=== PATIENT | female | born 1955 | race Caucasian/White ===

== ENCOUNTER 2019-09-09 15:21 | Inpatient (IN) | payer MEDICARE, OTHER ==
[~2019-09-09] VITALS: Ht 172.7 cm; Wt 89.8 kg
[~2019-09-09 15:21] MED LIST: DILAUDID4 MG PO; TYLENOL # 31 EA PO; Z.0.LORTAB 10-5001 E; Z.0.SOMA350 MG; Z.0.VALIUM5 MG
[2019-09-09 17:32] LABS: INR 1.3
[2019-09-09 17:33] LABS: PARTIAL THROMBOPLASTIN TIME 23.8 seconds (23.8-35.5)
--- NOTE | 2019-09-09 17:33 | Diagnostic Imaging Report ---
Examination: CT BRAIN WO WITHOUT CONTRAST History:Altered mental status. Comparison studies:The images of prior head CT dated 2012 are not available for comparison. Technique: Axial images were obtained from the skull base to the vertex. Coronal and sagittal images reconstructed from the axial data. Dose modulation, iterative reconstruction, and/or weight based adjustment of the mA/kV was utilized to reduce the radiation dose to as low as reasonably achievable. Intravenous contrast: None Findings: Scalp: No abnormalities. Bones: No fractures, blastic or lytic lesions. Brain sulci: Appropriate for age. Ventricles: Normal in size and configuration. No hydrocephalus. Extra-axial space: No abnormalities. Parenchyma: No masses, hemorrhage, or acute or chronic cortical based vascular insults.. Sellar/suprasellar region: No abnormalities. Craniocervical junction: Patent foramen magnum. No Chiari one malformation. Impression: No acute intracranial abnormalities. Signed by: Dr. Jagruti Be M.D. on 09/09/2019 5:30 PM
[2019-09-09 17:42] LABS: ALANINE AMINOTRANSFERASE 19 IU/L (0-55); ALBUMIN 3.1 g/dL (3.5-5.0); ALBUMIN/GLOBULIN RATIO 1.4 (0.8-2.0); ALKALINE PHOSPHATASE 99 IU/L (40-150); BLOOD UREA NITROGEN 6 mg/dL (7-26); BUN/CREATININE RATIO 10 (6-25); CARBON DIOXIDE 31 mmol/L (22-29); CHLORIDE 99 mmol/L (98-107); CREATINE KINASE 59 IU/L (29-168); CREATININE, SERUM 0.61 mg/dL (0.57-1.11); EST GLOMERULAR FILTRATION RATE > 60 ML/MIN (60-); GLUCOSE 128 mg/dL (74-118); SODIUM 139 mmol/L (136-145)
--- NOTE | 2019-09-09 17:42 | Diagnostic Imaging Report ---
EXAMINATION: CHEST SINGLE (PORTABLE) INDICATION: Altered mental status. COMPARISON: None FINDINGS: TUBES and LINES: None. LUNGS: There are hazy opacification of the bilateral lung bases. PLEURA: No pleural effusion or pneumothorax. HEART AND MEDIASTINUM: The cardiomediastinal silhouette is unremarkable. BONES AND SOFT TISSUES: No acute osseous lesion. Soft tissues are unremarkable. UPPER ABDOMEN: No free air under the diaphragm. IMPRESSION: Hazy opacification of bilateral lung bases which may represent atelectasis and/or multifocal pneumonia in the proper clinical setting. Signed by: Sydney Frankel MD on 09/09/2019 5:39 PM
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
[2019-09-09 19:10] LABS: BASOPHILS % 0.3 % (0.0-1.0); EOSINOPHILS % 0.3 % (0.0-6.0); HEMATOCRIT 23.4 % (34.2-44.1); LYMPHOCYTES # (AUTO) 1.2 (1.0-3.2); LYMPHOCYTES % 13.5 % (18.0-39.1); MEAN CORPUSCULAR HEMOGLOBIN 27.4 pg (28-32); MEAN CORPUSCULAR HGB CONC 29.1 g/dL (31-35); MEAN CORPUSCULAR VOLUME 94.4 fL (81-99); MONOCYTES # (AUTO) 0.9 (0.2-0.8); MONOCYTES % 10.4 % (4.4-11.3); NEUTROPHILS # (AUTO) 6.5 (2.1-6.9); PLATELET COUNT 128 x10e3/uL (140-360); RED BLOOD COUNT 2.48 x10e6/uL (3.6-5.1); RED CELL DISTRIBUTION WIDTH 18.7 % (11.7-14.4)
[2019-09-09 19:16] LABS: HEMOGLOBIN 6.8 g/dL (12.0-16.0)
[2019-09-09 19:17] LABS: BILIRUBIN,URINE NEGATIVE (NEGATIVE); CLARITY,URINE SL CLOUDY (CLEAR); COLOR,URINE YELLOW (YELLOW); KETONES,URINE NEGATIVE (NEGATIVE); LEUKOCYTE ESTERASE ,URINE NEGATIVE (NEGATIVE); NITRITE,URINE NEGATIVE (NEGATIVE); PROTEIN,URINE DIPSTICK NEGATIVE (NEGATIVE); URINE UROBILINOGEN 0.2 mg/dL (0.2 - 1)
[2019-09-09 19:29] LABS: BACTERIA,URINE RARE /HPF; EPITHELIAL CELLS,URINE RARE /LPF
[2019-09-09] MEDS ORDERED: SODIUM CHLORIDE 0.9% 250ML 250 ML IV ONE (19:30)
[2019-09-10] MEDS ORDERED: SODIUM CHLORIDE 0.9% 250ML 250 ML ONE ×2 (00:20→20:53)
--- NOTE | 2019-09-10 03:16 | NUR ---
PATIENT GOES INTO SINUS TACHYCARDIA FOR 7 SECONDS THEN COMES BACK DOWN, DR MORAN WITH THIS NURSE STUDYING BORDER INSPECTOR, PATIENT IS ASYMPTOMATIC
--- NOTE | 2019-09-10 03:37 | NUR ---
EKG SHOWED TO DR MORAN FOR INTERPRETATION
[2019-09-10 06:23] LABS: BASOPHILS % 0.8 % (0.0-1.0); EOSINOPHILS # (AUTO) 0.1 (0.0-0.4); EOSINOPHILS % 1.5 % (0.0-6.0); HEMOGLOBIN 8.5 g/dL (12.0-16.0); MEAN CORPUSCULAR HEMOGLOBIN 29.3 pg (28-32); MEAN CORPUSCULAR HGB CONC 31.5 g/dL (31-35); MEAN CORPUSCULAR VOLUME 93.1 fL (81-99); MONOCYTES # (AUTO) 0.7 (0.2-0.8); MONOCYTES % 13.9 % (4.4-11.3); NEUTROPHILS % 63.6 % (38.7-80.0); PLATELET COUNT 88 x10e3/uL (140-360); RED CELL DISTRIBUTION WIDTH 19.2 % (11.7-14.4)
[2019-09-10 06:58] LABS: ALANINE AMINOTRANSFERASE 17 IU/L (0-55); ALBUMIN/GLOBULIN RATIO 1.3 (0.8-2.0); ALKALINE PHOSPHATASE 77 IU/L (40-150); ANION GAP 8.8 mmol/L (8-16); BLOOD UREA NITROGEN < 5 mg/dL (7-26); CALCIUM 8.1 mg/dL (8.4-10.2); CARBON DIOXIDE 34 mmol/L (22-29); CHLORIDE 100 mmol/L (98-107); CREATININE, SERUM 0.53 mg/dL (0.57-1.11); EST GLOMERULAR FILTRATION RATE > 60 ML/MIN (60-); GLUCOSE 107 mg/dL (74-118); SODIUM 140 mmol/L (136-145)
[2019-09-10 07:00] LABS: BUN/CREATININE RATIO 9 (6-25)
[2019-09-10 07:02] LABS: POTASSIUM 2.8 mmol/L (3.5-5.1)
[2019-09-10] MEDS ORDERED: POTASSIUM CHLORIDE 20 MEQ TAB CR PO STA (07:13)
--- NOTE | 2019-09-10 07:15 | NUR ---
REPORT GIVEN TO LUNA GAMBOA
[2019-09-10 08:05] LABS: PLATELET ESTIMATE MODERATELY DECREASED
[2019-09-10 08:06] LABS: PLATELET MORPHOLOGY COMMENT NORMAL
[2019-09-10] MEDS: POTASSIUM CHLORIDE 10MEQ/100ML 100 ML IV SCH ×7 (08:31→21:15)
[2019-09-10] MEDS: FUROSEMIDE INJ 10 MG/ML 4 ML VIAL IV SCH ×2 (10:48→11:35)
[2019-09-10] MEDS: PANTOPRAZOLE 40 MG 10ML VIAL IV SCH (10:48)
--- NOTE | 2019-09-10 10:48 | History and Physical ---
CHIEF COMPLAINT: Palpitation, increasing shortness of breath, abdominal distention with ascites and bilateral legs swelling. HISTORY OF PRESENT ILLNESS: The patient is a 64-year-old female, who has history of hepatitis C. Recently, she was hospitalized at [facility], where she had a syncopal episode, has some injury to the left upper extremity, but more importantly, found that the patient ammonia level was elevated associated with liver cirrhosis. The patient was hospitalized and subsequently was discharged home approximately a week ago. She came to see her family physician and found to have increasing lower extremity swelling along with abdominal distention as well. She was given Aldactone 25 mg daily. The patient did not improve. In fact, she was worsened and associated with increasing heart rate, palpitations, and near syncopal episode, for which the patient subsequently came to the hospital for further evaluation. Here, the patient is on atrial fibrillation. Rate is not yet controlled. She had bilateral 3+ pitting edema. She also has increasing abdominal distention as well associated with ascites. The patient is otherwise, however, stable. She had a right IJ line. PAST SURGICAL HISTORY: Cholecystectomy, left arm surgery, multiple back surgeries. PAST MEDICAL HISTORY: Hepatitis C with liver cirrhosis. Osteoarthritis. Recently a fall with left arm injury. SOCIAL HISTORY: The patient does not smoke or use alcohol. No regular drug use. Hepatitis C was from previous blood transfusion years ago. ALLERGIES: GABAPENTIN. HOME MEDICATIONS: She is on diazepam and Dilaudid orally. PHYSICAL EXAMINATION: VITAL SIGNS: Temperature is 98, blood pressure 125/69, pulse rate is 115 atrial fibrillation. Respirations 18. GENERAL: The patient is comfortable. She is not in distress. HEENT: Normocephalic and atraumatic. Anicteric. NECK: Supple grossly. PULMONARY: Diminished breath sounds. CARDIOVASCULAR: S1, S2. Rapid rate with atrial fibrillation. ABDOMEN: Distended with abdominal ascites. EXTREMITIES: 3+ edema. NEUROLOGIC: No focal deficit. LABORATORY DATA: WBC is 8.7, hemoglobin 6.8, hematocrit 23.4, platelets 128. Chemistry; sodium is 139, potassium 3.0, chloride 99, bicarb 31, BUN is 6, creatinine 0.6, glucose 128. Ammonia level was 46. Urinalysis unremarkable. SEROLOGIES: Coronavirus PCR is still pending. IMAGING TESTS: Chest x-ray show hazy opacity of bilateral lung bases, which may represent atelectasis and/or multifocal pneumonia. IMPRESSION: 1. Increasing shortness of breath associated with rapid heart rate, atrial fibrillation. 2. Abdominal distention with abdominal ascites and bilateral lower extremity swelling consistent with possible early congestive heart failure superimposed on liver cirrhosis with abdominal ascites. 3. Gross significant symptomatic anemia with hemoglobin and hematocrit of 6.8 and 23.4. 4. Liver cirrhosis associated with hepatitis C. 5. Multiple chronic baseline problems. PLAN: 1. Consult with Dr. Vyas. 2. Consult Dr. Xie, Gastroenterology. 3. Blood transfusion. The patient did receive her hemoglobin and hematocrit went up to 8.5 and 27. 4. Possible paracentesis. 5. Diuresis. 6. CT of the chest and abdomen to better document the patient's status. 7. COVID-19 PUI, pending results. The patient will be admitted for further evaluation and treatment. We will replace electrolytes. Check lab work. We will continue to monitor this patient closely. We will follow up with Dr. Mendez to see what his recommendation for the atrial fibrillation. MD YARIEL Frederick/CARLOSL /[id number]
[2019-09-10] MEDS: METOPROLOL TARTRATE 25 MG TAB PO SCH ×2 (10:49→17:15)
--- NOTE | 2019-09-10 12:51 | Diagnostic Imaging Report ---
CT of the chest, abdomen, and pelvis, with contrast. History: Shortness of breath, abnormal chest x-ray. Comparison: Chest radiograph from 09/09/2019. Technique: Multidetector CT scanning of the abdomen and pelvis was performed from the level of the lung bases to the inferior pubic rami after intravenous administration of contrast. Coronal and sagittal multiplanar reformations were obtained. RADIATION DOSE: Total DLP: 897.86 mGy*cm Dose modulation, iterative reconstruction, and/or weight based adjustment of the mA/kV was utilized to reduce the radiation dose to as low as reasonably achievable. FINDINGS: The thyroid and remaining visualized structures within the base of the neck demonstrate no significant abnormalities. The thoracic aorta is normal course and caliber. The heart is not enlarged. There is no abnormal pericardial fluid present. There is no abnormal activity, mediastinal, or hilar lymph node enlargement. The trachea and proximal airways are patent. There is a trace right pleural effusion present with associated compressive atelectasis of the right lung base. A calcified granuloma is noted within the right lower lobe. Examination of the lungs otherwise demonstrates no evidence for consolidation, pneumothorax, mass, or suspicious nodule. There is a small volume of abdominopelvic ascites, most prominent within the perihepatic/perisplenic regions. The liver is decreased in size and demonstrates a nodular contour suggestive of cirrhosis. No focal hepatic abnormality is identified on this single phase examination. The gallbladder is surgically absent. There is no intrahepatic biliary ductal dilatation. There is minimal prominence of the common bile duct measuring up to 8 mm in caliber likely reflecting post cholecystectomy status. The spleen is enlarged. The pancreas and bilateral adrenal glands are unremarkable. The kidneys are normal in size and enhance symmetrically. There is no evidence for nephrolithiasis or hydronephrosis. No ureteral stone or dilatation is appreciated. The urinary bladder demonstrates no significant abnormalities. The uterus is surgically absent. No abnormal adnexal masses are identified. The abdominal aorta is normal in caliber. The IVC is unremarkable. The main portal vein is prominent measuring up to 2.4 cm in maximal caliber. Multiple collateral vessels are identified within the upper abdomen. Prominent paraesophageal varices noted. The portal venous system, splenic vein, and SMV are patent. There is mild wall thickening of the stomach and loops of small and large bowel likely reflecting portal hypertensive gastropathy/enteropathy. The visualized loops of small and large bowel otherwise demonstrate no evidence of obstruction or inflammation. Scattered diverticula are noted within the sigmoid colon without evidence for acute diverticulitis. There is no intraperitoneal free air. No abnormally enlarged lymph nodes are identified within the abdomen or pelvis. Multiple surgical clips are noted along the anterior abdominal wall likely reflecting prior hernia repair. Multiple remote/healed left posterior lateral rib fractures are noted. There is dextroscoliosis of the thoracolumbar spine with multilevel degenerative changes. There is no evidence for acute fracture or destructive process. Body wall edema noted.. IMPRESSION: 1. CT findings suggestive of cirrhosis and sequela of portal hypertension including prominent portal vein, paraesophageal varices, splenomegaly, and small volume of ascites. 2. Mild wall thickening noted of the stomach and loops of bowel which is favored to be secondary to portal hypertensive gastropathy/enteropathy. No evidence for bowel obstruction. 3. Trace right pleural effusion. Signed by: Dr. Robe Wolf MD on 09/10/2019 12:48 PM
[2019-09-10] MEDS ORDERED: IOPAMIDOL 370 MG/ML 200 ML INFUS..BTL INJ ONE (12:52)
[2019-09-10] MEDS ORDERED: SODIUM CHLORIDE 0.9% 50ML 50 ML ONE (12:52)
[2019-09-10 12:54] LABS: % IRON SATURATION 30 % (15-50); IRON 77 ug/dL (50-170); TOTAL IRON BINDING CAPACITY 256 ug/dL (261-478); TRANSFERRIN 183 mg/dL (180-382)
[2019-09-10] MEDS ORDERED: POTASSIUM CHLORIDE 10MEQ/100ML 200 ML ONE (16:54)
[2019-09-10 20:08] LABS: CREATINE KINASE MB 1.3 ng/mL (0-5.0)
--- NOTE | 2019-09-10 20:30 | NUR ---
Patient received from ER via stretcher accompanied by daughter. AAO x 4. Patient had no complaints of pain. Respirations even and non-labored. Admission history obtained. Initial physical assessment performed. Patient oriented to room, call light and plan of care. Safety measures in place. Patient / daughter instructed to call for assistance when needed. Call light within reach.
[2019-09-10 20:38] VITALS: BP 112/64
--- NOTE | 2019-09-10 21:20 | NUR ---
Dr. Xie paged regarding "Routine Consult". Spoke to [place]. Awaiting call back.
--- NOTE | 2019-09-10 21:45 | NUR ---
Patient informed of surgical procedure---Therapeutic Paracentesis and NPO status after midnight. Patient verbalized understanding. Disclosure and Consent form signed.
[2019-09-10 22:00] VITALS: BP 112/64
[2019-09-10] MEDS ORDERED: MELOXICAM7.5 MG PO (23:09)
[2019-09-10] MEDS ORDERED: SPIRONOLACTONE25 MG PO (23:09)
[2019-09-10] MEDS ORDERED: BACLOFEN10 MG PO (23:09)
[2019-09-10] MEDS ORDERED: MORPHINE SULFAT15 M1 PO (23:09)
[2019-09-11] VITALS (8 sets, daily range): BP systolic 100–123; BP diastolic 51–83
--- NOTE | 2019-09-11 00:47 | Consultation ---
DATE OF CONSULTATION: 09/10/2019 Cardiology Consultation CONSULTING PHYSICIAN: Dimas Vyas, Interventional Cardiology. REASON FOR CONSULTATION: Arrhythmia. HISTORY OF PRESENT ILLNESS: Ms. Amaya is a 64-year-old woman with history of hepatitis C viral infection and end-stage liver disease, prior issues with anemia and GI bleeding, who presents with worsening anemia, suspected GI bleed. She has been gaining significant volume overload following recent discharge from [facility]. She was found to have hypokalemia and reportedly episodes of paroxysmal atrial fibrillation were observed on telemetry by ER team. Available EKG strips and current telemetry reveals sinus rhythm, however, has not been able to confirm this. The patient currently denies any chest discomfort, has stable shortness of breath. Denies lightheadedness or syncope. Has occasional palpitations. REVIEW OF SYSTEMS: Twelve-system review negative except for as noted above. ALLERGIES: TO GABAPENTIN. PAST MEDICAL HISTORY: Remarkable for HCV, anemia, and end-stage liver disease. SOCIAL HISTORY: Denies smoking, alcohol, or drugs. FAMILY HISTORY: Noncontributory. PHYSICAL EXAMINATION: VITAL SIGNS: Heart rate 94, sinus rhythm, respiratory rate 14, O2 saturation 97%. GENERAL: No acute distress. Alert. Mucosa dry and pale. NECK: JVD distended. No carotid bruits. CHEST: With decreased breath sounds in bilateral bases. CARDIOVASCULAR: Regular rate and rhythm. Normal S1, S2. Systolic ejection murmur. No S3. No S4. ABDOMEN: Soft. Bowel sounds positive. EXTREMITIES: 2+ edema to both lower extremities. MEDICATIONS: Reviewed. Potassium chloride repletion ongoing, metoprolol tartrate 25 mg b.i.d., Protonix 40 mg daily, furosemide 40 mg IV b.i.d., diuretics on hold during repletion of potassium. LABORATORY DATA: Studies reviewed. Sodium 140, potassium 2.8, chloride 100, bicarbonate 34, BUN less than 5 and creatinine 0.53, glucose 107. White blood cells 4.7, hemoglobin 8.5, platelets 88. INR 1.3, PT 17, PTT 23. AST 24, ALT 17, alkaline phosphatase 77. ASSESSMENT AND PLAN: A 64-year-old woman presents with suspected gastrointestinal bleed and anemia and volume overload in the setting of HCV, end-stage liver disease and reported paroxysmal atrial fibrillation episodes in the setting of electrolyte derangements. RECOMMEND: 1. Replete electrolytes. 2. Monitor H and H and consider GI evaluation. 3. Rate control strategy is advised at this point. Currently not a candidate for anticoagulation until anemia and possible active bleeding is further evaluated. Obtain echocardiogram. Keep on telemetry. Thank you for the opportunity to participate in the care of this patient. We will follow with you. MD ALVARO Noyola/VADIM /[id number] MTDD
[2019-09-11 05:14] LABS: BASOPHILS % 0.6 % (0.0-1.0); EOSINOPHILS # (AUTO) 0.1 (0.0-0.4); EOSINOPHILS % 2.5 % (0.0-6.0); HEMATOCRIT 29.7 % (34.2-44.1); HEMOGLOBIN 8.7 g/dL (12.0-16.0); LYMPHOCYTES # (AUTO) 1.4 (1.0-3.2); LYMPHOCYTES % 26.7 % (18.0-39.1); MEAN CORPUSCULAR HEMOGLOBIN 26.9 pg (28-32); MEAN CORPUSCULAR HGB CONC 29.3 g/dL (31-35); MONOCYTES # (AUTO) 0.7 (0.2-0.8); MONOCYTES % 12.5 % (4.4-11.3); NEUTROPHILS % 57.5 % (38.7-80.0); PLATELET COUNT 95 x10e3/uL (140-360); RED BLOOD COUNT 3.23 x10e6/uL (3.6-5.1); RED CELL DISTRIBUTION WIDTH 19.1 % (11.7-14.4)
[2019-09-11 05:36] LABS: ALANINE AMINOTRANSFERASE 18 IU/L (0-55); ALBUMIN 2.7 g/dL (3.5-5.0); ALBUMIN/GLOBULIN RATIO 1.2 (0.8-2.0); ALKALINE PHOSPHATASE 96 IU/L (40-150); ANION GAP 8.6 mmol/L (8-16); BLOOD UREA NITROGEN < 5 mg/dL (7-26); BUN/CREATININE RATIO 9 (6-25); CALCIUM 8.2 mg/dL (8.4-10.2); CARBON DIOXIDE 36 mmol/L (22-29); CHLORIDE 100 mmol/L (98-107); CREATININE, SERUM 0.57 mg/dL (0.57-1.11); EST GLOMERULAR FILTRATION RATE > 60 ML/MIN (60-); GLUCOSE 118 mg/dL (74-118); POTASSIUM 3.6 mmol/L (3.5-5.1); SODIUM 141 mmol/L (136-145)
[2019-09-11 05:57] LABS: CREATINE KINASE MB 1.3 ng/mL (0-5.0)
[2019-09-11 06:29] LABS: MAGNESIUM 1.8 MG/DL (1.3-2.1); PHOSPHORUS 2.6 MG/DL (2.3-4.7)
--- NOTE | 2019-09-11 06:44 | NUR ---
RECEIVED BEDSIDE SHIFT REPORT FROM OFF GOING NURSE. PATIENT IS RESTING IN BED. NO ACUTE DISTRESS NOTED. CALL LIGHT WITHIN REACH. BED IN THE LOWEST POSITION.
[2019-09-11] MEDS: PANTOPRAZOLE 40 MG 10ML VIAL IV SCH (08:39)
[2019-09-11] MEDS: FUROSEMIDE INJ 10 MG/ML 4 ML VIAL IV SCH ×2 (08:39→11:30)
[2019-09-11] MEDS: METOPROLOL TARTRATE 25 MG TAB PO SCH ×2 (08:39→16:09)
--- NOTE | 2019-09-11 13:00 | NUR ---
PATIENT OFF UNIT FOR PROCEDURE.
--- NOTE | 2019-09-11 13:52 | NUR ---
PATIENT BACK TO UNIT FROM PARACENTESIS. SHE IS IN STABLE CONDITION. DAUGHTER AT BEDSIDE.
--- NOTE | 2019-09-11 14:03 | Diagnostic Imaging Report ---
Procedure: Ultrasound-guided paracentesis non acoustic operator: Robe Wolf MD Pre-operative diagnosis: Ascites Post-operative diagnosis: Ascites Conscious Sedation: None. The patient's heart rate and pulse oximetry were continuously monitored by the IR nurse. Additional Medications: Lidocaine 1% for local anesthesia Estimated blood loss: Less than 1 cc. Specimen: 700 cc of clear yellow fluid Implants: None TECHNIQUE/FINDINGS: Informed consent was obtained from the patient and documented in the medical record. The patient was placed in the supine position. Initial ultrasound demonstrated small volume of ascites. The left lower abdomen was prepped and draped in standard sterile fashion. 1% lidocaine was infiltrated into the skin and subcutaneous tissues for local anesthesia. Then under continuous sonographic guidance, a 5 Fr catheter was advanced into the peritoneal space. The catheter was connected to vacuum bottle with subsequent evacuation of 700 cc of serous fluid. The catheter was removed and sterile dressing was applied. Sample was sent to the lab. The patient tolerated the procedure well. IMPRESSION: Successful ultrasound-guided paracentesis. Signed by: Dr. Robe Wolf MD on 09/11/2019 2:00 PM
[2019-09-11 17:29] LABS: BODY FLUID APPEARANCE SL.CLOUDY; BODY FLUID COLOR YELLOW
[2019-09-11 17:33] LABS: RBC,BODY FLUID 64 cells/uL; WBC,BODY FLUID 313 cells/uL
[2019-09-11 17:45] LABS: LYMPHOCYTES,BODY FLUID 37 %; MONO/MACROPHG,BODY FLUID 62 %; NEUTROPHILS,BODY FLUID 1 %
--- NOTE | 2019-09-11 19:01 | NUR ---
BEDSIDE SHIFT REPORT GIVEN TO ONCOMING NURSE. PATIENT IS IN STABLE CONDITION, SITTING UP IN CHAIR. DAUGHTER AT BEDSIDE. CALL LIGHT WITHIN REACH. BED IN THE LOWEST POSITION.
--- NOTE | 2019-09-12 00:34 | Progress Note ---
DATE: 09/11/2019 Cardiology Progress Note SUBJECTIVE: No chest pain or shortness of breath. Confusion improved. OBJECTIVE: VITAL SIGNS: Temperature 99.2, heart rate 96, blood pressure 100/51, respiratory rate 20, O2 saturation O2Sat 96% GENERAL: No acute distress. Alert. NECK: No JVD. CHEST: Clear to auscultation. CARDIOVASCULAR: Regular rate and rhythm. Normal S1 and S2. No S3 or S4. ABDOMEN: Soft. Bowel sounds positive. EXTREMITIES: Trace edema. TELEMETRY: Sinus rhythm. CARDIOVASCULAR MEDICATIONS: Reviewed. Metoprolol and furosemide. STUDIES: Reviewed. Creatinine 0.5, potassium 3.6, improved. Hemoglobin 8.7, status post PRBC transfusion. Platelets 95. ASSESSMENT AND PLAN: Positive fecal occult blood test/gastrointestinal bleed and anemia in the setting of end-stage liver disease, hepatitis C virus infection, hypokalemia, and paroxysmal atrial fibrillation in the setting of the above. RECOMMEND: 1. Continue current beta-blockers. 2. Currently not a candidate for anticoagulation. GI evaluation underway. MD ALVARO Noyola/MODL /[id number] MTDD
[2019-09-12 00:54] VITALS: BP 104/57
[2019-09-12 05:02] VITALS: BP 115/63
--- NOTE | 2019-09-12 07:00 | NUR ---
Patient resting comfortably. Walking rounds done. Shift report given to oncoming nurse regarding patient's status.
[2019-09-12 08:03] VITALS: BP 115/63
[2019-09-12 08:04] VITALS: BP 119/70
[2019-09-12] MEDS: PANTOPRAZOLE 40 MG 10ML VIAL IV SCH (09:30)
[2019-09-12] MEDS: FUROSEMIDE INJ 10 MG/ML 4 ML VIAL IV SCH ×2 (09:30→12:50)
[2019-09-12] MEDS: METOPROLOL TARTRATE 25 MG TAB PO SCH (09:31)
--- NOTE | 2019-09-12 15:20 | NUR ---
Discharge instructions given to the patient and her daughter, they verbalized understanding. IV to the right wrist was removed with tip intact.
--- NOTE | 2019-09-12 17:47 | Discharge Summary ---
KEEPER HEAD: 1. Dr. Mendez. 2. Dr. Xie. FINAL DIAGNOSES: 1. Paroxysmal atrial fibrillation with rapid ventricular rate response, now in normal sinus rhythm with beta blockers, metoprolol treatment. 2. Baseline liver cirrhosis associated with esophageal varices. 3. Abdominal ascites status post paracentesis, 700 mL obtained. 4. Possible early spontaneous bacterial peritonitis, given the yellow cloudy urine. 5. Chronic blood loss anemia from chronic upper GI bleed, most likely. SUMMARY: This is a 64 years old female, recently discharged from [facility], was diagnosed with liver cirrhosis and esophageal varices. The patient had upper and lower endoscopy at that time. She apparently came back in to the hospital, but at this time at [facility] for increasing heart rate. The patient was in an atrial fibrillation and once beta radha was given the patient had sinus rhythm now. She is otherwise stable. Because of her increasing swelling of the abdomen and lower extremity, she was placed on IV furosemide. She has also received paracentesis yesterday by Interventional Radiology and 700 mL of fluid obtained yellowish cloudy but nonbloody fluid. Her fecal occult blood is positive. Recent blood work includes sodium 141, potassium 3.6, chloride 100, bicarb 26, BUN 5, creatinine 0.5, and glucose is 118. WBC is 5.2, hemoglobin increased from 6.8 to 8.7 after 2 units blood transfusion. The patient is otherwise stable. She is doing much better. She is feeling much better. The patient is to go home today. Adjustment of her medication has been made. The patient will be discharged home with the following medications: 1. Resume home medication. 2. Increase Aldactone to 25 mg twice a day. 3. Lasix 40 mg twice a day. 4. Potassium 20 mEq daily. 5. Cipro 250 mg twice a day for 7 days. 6. Metoprolol tartrate 25 mg twice a day. Discussed with the patient regarding followup with her family physician and Cardiology as well Gastroenterology as well. No further workup at this time. If the patient is worsening, she can always come back. Otherwise, the patient is stable. Discharged home and follow up as an outpatient with the primary care physician, Dr. Mandi Brown and also specialist previous GI or Dr. Henrique Xie and previous fiber drier operator or Dr. Jona Mendez. The patient is stable, discharged home today. MD YARIEL Frederick/VADIM /[id number]
--- NOTE | 2019-09-13 00:47 | Progress Note ---
DATE: 09/12/2019 Cardiology Progress Note SUBJECTIVE: No complaints. OBJECTIVE: VITAL SIGNS: Temperature 98.9, heart rate 92, blood pressure 119/70, respiratory rate 20, O2 saturation 92%. GENERAL: In no acute distress, alert. NECK: No JVD. CHEST: Clear to auscultation. CARDIOVASCULAR: Regular rate and rhythm. Normal S1 and S2. No S3 or S4. ABDOMEN: Soft. Bowel sounds positive. EXTREMITIES: 1+ edema, overall better compared to admission. CARDIOVASCULAR MEDICATIONS: Reviewed. Metoprolol tartrate 25 mg b.i.d., Protonix 40 mg daily, furosemide 40 mg b.i.d. LABORATORY DATA: Studies reviewed. Potassium improved at 3.6, sodium 141, chloride 100, bicarbonate 36, BUN less than 5, creatinine 0.5, glucose 118. White blood cells 5.2, hemoglobin 8.7, and platelets 95. INR 1.3. AST 23, ALT 18, and alkaline phosphatase 96. ASSESSMENT AND PLAN: A 64-year-old woman with hepatitis C virus, end-stage liver disease, volume overload, hypokalemia, status post paroxysmal supraventricular tachycardia, reportedly atrial fibrillation; however, confirmatory strips unavailable. Noted to have anemia and positive fecal occult blood test per recent evaluation reportedly at [facility] including screening colonoscopy. I am going to inform at this point in time to continue anticoagulation therapy, volume optimization with diet, and diuretics. Close outpatient followup advised. MD ALVARO Noyola/VADIM /[id number]
== END 2019-09-12 15:41 | disposition home or self-care (01) | DRG 432 ==
LOC: ER 15:50 → ERHOLD 09-10 03:30 → OBSVTOIN 09-10 10:15 → MED/SURG2 09-10 19:02
PROVIDERS: ADMIT Internal Medicine; ATTEND Internal Medicine
PROC: 30233P1 Transfusion of Nonautologous Frozen Red Cells into Peripheral Vein, Percutaneous Approach (ICD-10-PCS; 2019-09-09)
PROC: 0W9G3ZZ Drainage of Peritoneal Cavity, Percutaneous Approach (ICD-10-PCS; principal; 2019-09-11)
DX: K74.60 Unspecified cirrhosis of liver (principal); K65.2 Spontaneous bacterial peritonitis; R18.8 Other ascites; K92.2 Gastrointestinal hemorrhage, unspecified; D62 Acute posthemorrhagic anemia; I85.10 Secondary esophageal varices without bleeding; I48.0 Paroxysmal atrial fibrillation; B19.20 Unspecified viral hepatitis C without hepatic coma; Z79.01 Long term (current) use of anticoagulants; E87.6 Hypokalemia; E87.8 Other disorders of electrolyte and fluid balance, not elsewhere classified; I11.0 Hypertensive heart disease with heart failure; I50.9 Heart failure, unspecified; Z11.59 Encounter for screening for other viral diseases
CPT/HCPCS: 36415; 49083; 70450; 71045; 71260; 74177; 80053; 81001; 82140; 82270; 82550; 82553; 82607; 82746; 83540; 83735; 84100; 84466; 84484; 85025; 85610; 85730; 86850; 86900; 86920; 87070; 87086; 87205; 88112; 88305; 89051; 93005; 93306; 93970; 99284; J1940; J3480; J7050; P9016; Q9967; U0002

== ENCOUNTER 2019-12-25 17:44 | Inpatient (IN) | payer MEDICARE, OTHER ==
[~2019-12-25] VITALS: Ht 170.2 cm; Wt 80.1 kg
[~2019-12-25 17:44] MED LIST changes: +BACLOFEN10 MG PO; +MELOXICAM7.5 MG PO; +MORPHINE SULFAT15 M1 PO; +SPIRONOLACTONE25 MG PO
[2019-12-25 18:58] LABS: BASOPHILS % 0.5 % (0.0-1.0); EOSINOPHILS % 0.3 % (0.0-6.0); HEMATOCRIT 43.4 % (34.2-44.1); HEMOGLOBIN 14.4 g/dL (12.0-16.0); LYMPHOCYTES % 17.5 % (18.0-39.1); MEAN CORPUSCULAR HEMOGLOBIN 30.2 pg (28-32); MEAN CORPUSCULAR HGB CONC 33.2 g/dL (31-35); MONOCYTES # (AUTO) 0.8 (0.2-0.8); MONOCYTES % 14.4 % (4.4-11.3); NEUTROPHILS # (AUTO) 3.9 (2.1-6.9); PLATELET COUNT 96 x10e3/uL (140-360); RED BLOOD COUNT 4.77 x10e6/uL (3.6-5.1); RED CELL DISTRIBUTION WIDTH 19.2 % (11.7-14.4)
--- NOTE | 2019-12-25 19:10 | Emergency Department Note ---
History of Present Illnes History of Present Illness Chief Complaint: General Medicine Complaints History of Present Illness This is a 64 year old female WITH LIVER CIRRHOSIS PRESENTS TO THE ER C/O ABNORMAL LABS PER DAUGHTER; PT HAD BLOODWORK DONE TODAY ADN TOLD POTASSIUM AND HGB WAS LOW; PER DAUGHTER, PT HAS BEEN HAVING UNSTEADY GAIT, INTERMITTENT CONFUSION AND INCOHERIENT; ASTERIXIS NOTED ON ASSESSMENT; PT DENIES FALLING OR HITTING HEAD;. Historian: Patient, Family Member Arrival Mode: Car Manager Materials Management Required: No Onset (how long ago): day(s) (3) Location: ALL OVER Quality: CONFUSED, WEAKNESS, NOT ACTING NORMAL Radiation: Reports non-radiation Severity: mild Onset quality: gradual Duration (how long): day(s) (3) Progression: worsening Chronicity: recurrent Context: Denies recent illness, Denies recent surgery Relieving factors: none Exacerbating factors: none Associated symptoms: Reports denies other symptoms Treatments prior to arrival: none Past Medical/Family History Physician Review I have reviewed the patient's past medical and family history. Any updates have been documented here. Past Medical History Recent Fever: No Clinical Suspicion of Infectio: No New/Unexplained Change in Ment: No Past Medical History: Hepatitis C, Liver Disease Other Medical History: Hepatitis C CIRRHOSIS Past Surgical History: Cholecysctectomy Other Surgery: Abdominal Hernia Repair left arm sx Social History Smoking Cessation: Never Smoker Alcohol Use: None Any Illegal Drug Use: No Other Last Tetanus: [place] Review of Systems Review of Systems Constitutional: Reports no symptoms EENTM: Reports no symptoms Cardiovascular: Reports no symptoms Respiratory: Reports no symptoms Gastrointestinal: Reports no symptoms Genitourinary: Reports no symptoms Musculoskeletal: Reports no symptoms Integumentary: Reports no symptoms Neurological: Reports as per HPI Psychological: Reports no symptoms Endocrine: Reports no symptoms Hematological/Lymphatic: Reports no symptoms Review of other systems: All other systems negative Physical Exam Related Data Allergies: Coded Allergies: gabapentin (Verified Allergy, Unknown, 07/15/16) Triage Vital Signs Vital Signs Date Time Temp Pulse Resp B/P (MAP) Pulse Ox O2 Delivery O2 Flow Rate FiO2 12/25/19 18:29 98.8 72 20 118/66 95 Room Air Vital signs reviewed: Yes Physical Exam CONSTITUTIONAL Constitutional: Present well-developed, Present well-nourished HENT HENT: Present normocephalic, Present atraumatic, Present oropharynx clear/moist, Present nose normal HENT L/R: Present left ext ear normal, Present right ext ear normal EYES Eyes: Reports PERRL, Reports conjunctivae normal NECK Neck: Present ROM normal PULMONARY Pulmonary: Present effort normal, Present breath sounds normal CARDIOVASCULAR Cardiovascular: Present regular rhythm, Present heart sounds normal, Present capillary refill normal, Present normal rate GASTROINTESTINAL Abdominal: Present soft, Present nontender, Present bowel sounds normal GENITOURINARY Genitourinary: Present exam deferred SKIN Skin: Present warm, Present dry MUSCULOSKELETAL Musculoskeletal: Present ROM normal NEUROLOGICAL Neurological: Present alert, Present oriented x 3, Present no gross motor or sensory deficits, Present abnormal gait (UNSTEADY), Present other (SLOW SPEECH, ASTERIXIS PRESENT ON EXAM) PSYCHOLOGICAL Psychological: Present mood/affect normal, Present judgement normal Results Laboratory Result Diagram: 12/25/19 1842 Laboratory Laboratory Tests Test 12/25/19 20:37 12/25/19 18:42 Arterial Blood pH 7.63 (7.35-7.45) Arterial Blood Partial Pressure CO2 48 mmHg (35-45) Arterial Blood Partial Pressure O2 69 mmHg (80-105) Arterial Blood HCO3 51 mmol/L (22-26) Arterial Blood Total CO2 50 Arterial Blood Oxygen Saturation 96.0 % (95-98) Arterial Blood Base Excess 3.0 mmol/L (-2 - 3) White Blood Count 5.83 x10e3/uL (4.8-10.8) Red Blood Count 4.77 x10e6/uL (3.6-5.1) Hemoglobin 14.4 g/dL (12.0-16.0) Hematocrit 43.4 % (34.2-44.1) Mean Corpuscular Volume 91.0 fL (81-99) Mean Corpuscular Hemoglobin 30.2 pg (28-32) Mean Corpuscular Hemoglobin Concent 33.2 g/dL (31-35) Red Cell Distribution Width 19.2 % (11.7-14.4) Platelet Count 96 x10e3/uL (140-360) Neutrophils (%) (Auto) 67.0 % (38.7-80.0) Lymphocytes (%) (Auto) 17.5 % (18.0-39.1) Monocytes (%) (Auto) 14.4 % (4.4-11.3) Eosinophils (%) (Auto) 0.3 % (0.0-6.0) Basophils (%) (Auto) 0.5 % (0.0-1.0) Neutrophils # (Auto) 3.9 (2.1-6.9) Lymphocytes # (Auto) 1.0 (1.0-3.2) Monocytes # (Auto) 0.8 (0.2-0.8) Eosinophils # (Auto) 0.0 (0.0-0.4) Basophils # (Auto) 0.0 (0.0-0.1) Absolute Immature Granulocyte (auto 0.02 x10e3/uL (0-0.1) Differential Total Cells Counted 100 Neutrophils % (Manual) 79 % (40-74) Lymphocytes % (Manual) 10 % (19-48) Monocytes % (Manual) 10 % (3.4-9.0) Promyelocytes % 1 % (0-0) Platelet Estimate Markedly decreased Platelet Morphology Comment Normal Red Cell Morphology Comment Normal Prothrombin Time 15.6 seconds (11.9-14.5) Prothromb Time International Ratio 1.18 Activated Partial Thromboplast Time 26.9 seconds (23.8-35.5) Sodium Level 138 mmol/L (136-145) Potassium Level 1.8 mmol/L (3.5-5.1) Chloride Level 79 mmol/L (98-107) Carbon Dioxide Level 44 mmol/L (22-29) Anion Gap 16.8 mmol/L (8-16) Blood Urea Nitrogen 12 mg/dL (7-26) Creatinine 0.82 mg/dL (0.57-1.11) Estimat Glomerular Filtration Rate > 60 ML/MIN (60-) BUN/Creatinine Ratio 15 (6-25) Glucose Level 116 mg/dL (74-118) Calcium Level 9.9 mg/dL (8.4-10.2) Total Bilirubin 5.6 mg/dL (0.2-1.2) Aspartate Amino Transf (AST/SGOT) 54 IU/L (5-34) Alanine Aminotransferase (ALT/SGPT) 37 IU/L (0-55) Alkaline Phosphatase 101 IU/L (40-150) Ammonia 137 UG/DL (31-123) Total Protein 6.9 g/dL (6.5-8.1) Albumin 3.9 g/dL (3.5-5.0) Globulin 3.0 g/dL (2.3-3.5) Albumin/Globulin Ratio 1.3 (0.8-2.0) Laboratory Tests Test 12/25/19 18:42 White Blood Count 5.83 x10e3/uL (4.8-10.8) Red Blood Count 4.77 x10e6/uL (3.6-5.1) Hemoglobin 14.4 g/dL (12.0-16.0) Hematocrit 43.4 % (34.2-44.1) Mean Corpuscular Volume 91.0 fL (81-99) Mean Corpuscular Hemoglobin 30.2 pg (28-32) Mean Corpuscular Hemoglobin Concent 33.2 g/dL (31-35) Red Cell Distribution Width 19.2 % (11.7-14.4) Platelet Count 96 x10e3/uL (140-360) Neutrophils (%) (Auto) 67.0 % (38.7-80.0) Lymphocytes (%) (Auto) 17.5 % (18.0-39.1) Monocytes (%) (Auto) 14.4 % (4.4-11.3) Eosinophils (%) (Auto) 0.3 % (0.0-6.0) Basophils (%) (Auto) 0.5 % (0.0-1.0) Neutrophils # (Auto) 3.9 (2.1-6.9) Lymphocytes # (Auto) 1.0 (1.0-3.2) Monocytes # (Auto) 0.8 (0.2-0.8) Eosinophils # (Auto) 0.0 (0.0-0.4) Basophils # (Auto) 0.0 (0.0-0.1) Absolute Immature Granulocyte (auto 0.02 x10e3/uL (0-0.1) Lab results reviewed: Yes Imaging Imaging results reviewed: Yes Impressions History: Confusion Comparison studies: None Technique: Axial images were obtained from the skull base to the vertex. Coronal and sagittal reconstructions obtained from the axial data. Dose modulation, iterative reconstruction, and/or weight based adjustment of the mA/kV was utilized to reduce the radiation dose to as low as reasonably achievable. Intravenous contrast: None Findings: Scalp/skull: No abnormalities. No fractures, blastic or lytic lesions. Extra-axial spaces: No masses. No fluid collections. Brain sulci: Appropriate for age. Ventricles: Normal in size and configuration. No hydrocephalus. Parenchyma: No abnormal densities. No masses, hemorrhage, acute or chronic cortical vascular insults. Sellar/suprasellar region: No abnormalities Craniocervical junction: Patent foramen magnum. No Chiari one malformation. Incidental findings: None. IMPRESSION: No abnormalities. No changes when compared to the head CT on 09/09/2019 Signed by: Dr. Landen Singh M.D. on 12/25/2019 7:47 PM Dictated By: LANDEN SINGH MD, MD 46 Transcribed By: JEFF on 12/25/191946 COPY TO: JENNIFER ESTRADA MD~ Procedures 12 Lead ECG Interpretation ECG Interpretation : ECG: ECG 1 Manager Materials Management: Interpreted by ED physician Date: Dec 25, 2019 Time: 18:39 Rhythm: sinus rhythm Rate: normal BPM: 72 QRS axis: left Conduction: intraventricular conduction delay ST segments normal: No (NON SPEICIFIC CHANGES) T waves normal: Yes Other findings: no other findings Clinical Impression: abnormal ECG Assessment & Plan Medical Decision Making MDM PT WITH CIRRHOSIS WITH CONFUSION, WEAKNESS CBC, CMP, EKG, AMMONIA LEVEL, UA, CT BRAIN ORDERED TO EVAL FOR HEPATIC ENCEPHALOPATHY, ELECTROLYTE ABNORMALITY, INTRACRANIAL ABNORMALITY(BLEED, CVA), UTI I SPOKE WITH DR ANDERSON ADMIT Assessment & Plan Final Impression: (1) Hypokalemia (2) Hepatic encephalopathy Depart Disposition: ADMITTED Last Vital Signs Date Time Temp Pulse Resp B/P (MAP) Pulse Ox O2 Delivery O2 Flow Rate FiO2 12/25/19 18:29 98.8 72 20 118/66 95 Room Air Home Meds Reported Medications Baclofen (BACLOFEN) 10 Mg Tablet, 10 MG PO TID, #90 TAB 09/10/19 Morphine Sulfate (MORPHINE SULFATE ER) 15 Mg Tablet.er, 15 MG PO BID 09/10/19 Hydromorphone Hcl (DILAUDID) 4 Mg Tablet, 4 MG PO 4xd 07/15/16 JENNIFER ESTRADA MD Dec 25, 2019 19:10
[2019-12-25 19:14] LABS: INR 1.18; PROTHROMBIN TIME 15.6 seconds (11.9-14.5)
[2019-12-25 19:15] LABS: PARTIAL THROMBOPLASTIN TIME 26.9 seconds (23.8-35.5)
[2019-12-25 19:28] LABS: ALANINE AMINOTRANSFERASE 37 IU/L (0-55); ALBUMIN 3.9 g/dL (3.5-5.0); ALBUMIN/GLOBULIN RATIO 1.3 (0.8-2.0); ALKALINE PHOSPHATASE 101 IU/L (40-150); ANION GAP 16.8 mmol/L (8-16); BLOOD UREA NITROGEN 12 mg/dL (7-26); BUN/CREATININE RATIO 15 (6-25); CALCIUM 9.9 mg/dL (8.4-10.2); CHLORIDE 79 mmol/L (98-107); CREATININE, SERUM 0.82 mg/dL (0.57-1.11); EST GLOMERULAR FILTRATION RATE > 60 ML/MIN (60-); GLUCOSE 116 mg/dL (74-118); SODIUM 138 mmol/L (136-145)
[2019-12-25 19:38] LABS: POTASSIUM 1.8 mmol/L (3.5-5.1)
[2019-12-25 19:40] LABS: CARBON DIOXIDE 44 mmol/L (22-29)
[2019-12-25] MEDS ORDERED: POTASSIUM CHLORIDE 20MEQ/100ML 100 ML IV ONE ×2 (19:43)
[2019-12-25] MEDS ORDERED: POTASSIUM CHLORIDE 20MEQ/15ML UDC PO ONE (19:45)
--- NOTE | 2019-12-25 19:51 | Diagnostic Imaging Report ---
History: Confusion Comparison studies: None Technique: Axial images were obtained from the skull base to the vertex. Coronal and sagittal reconstructions obtained from the axial data. Dose modulation, iterative reconstruction, and/or weight based adjustment of the mA/kV was utilized to reduce the radiation dose to as low as reasonably achievable. Intravenous contrast: None Findings: Scalp/skull: No abnormalities. No fractures, blastic or lytic lesions. Extra-axial spaces: No masses. No fluid collections. Brain sulci: Appropriate for age. Ventricles: Normal in size and configuration. No hydrocephalus. Parenchyma: No abnormal densities. No masses, hemorrhage, acute or chronic cortical vascular insults. Sellar/suprasellar region: No abnormalities Craniocervical junction: Patent foramen magnum. No Chiari one malformation. Incidental findings: None. IMPRESSION: No abnormalities. No changes when compared to the head CT on 09/09/2019 Signed by: Dr. Tanvir Singh M.D. on 12/25/2019 7:47 PM
[2019-12-25] MEDS ORDERED: SODIUM CHLORIDE 0.9% 500ML 500 ML ONE (20:59)
[2019-12-25 21:00] LABS: ABG HCO3 51 mmol/L (22-26); ABG PCO2 48 mmHg (35-45); ABG PH 7.63 (7.35-7.45); ABG PO2 69 mmHg (80-105); ABG TCO2 50
[2019-12-25 21:01] LABS: LYMPHOCYTES % (MANUAL) 10 % (19-48); MONOCYTES % (MANUAL) 10 % (3.4-9.0); NEUTROPHILS % (MANUAL) 79 % (40-74); PROMYELOCYTES % (MANUAL) 1 % (0-0)
[2019-12-25 21:02] LABS: PLATELET MORPHOLOGY COMMENT NORMAL; RBC MORPHOLOGY COMMENT NORMAL
[2019-12-25 21:03] LABS: PLATELET ESTIMATE MARKEDLY DECREASED
[2019-12-25] MEDS ORDERED: SODIUM CHLORIDE FLUSH 10 ML SYR INJ PRN (21:30)
[2019-12-25] MEDS ORDERED: ONDANSETRON HCL INJ 2MG/ML 2ML 2 MG/ML VIAL IV PRN (21:30)
[2019-12-25] MEDS ORDERED: LACTULOSE SYRUP 20 GM/30 ML UDC PO PRN (21:30)
[2019-12-25 23:47] LABS: CLARITY,URINE SL CLOUDY (CLEAR); COLOR,URINE YELLOW (YELLOW)
[2019-12-25 23:48] LABS: BILIRUBIN,URINE NEGATIVE (NEGATIVE); KETONES,URINE NEGATIVE (NEGATIVE); LEUKOCYTE ESTERASE ,URINE SMALL (NEGATIVE); NITRITE,URINE NEGATIVE (NEGATIVE); PROTEIN,URINE DIPSTICK NEGATIVE (NEGATIVE)
[2019-12-25 23:52] LABS: BACTERIA,URINE FEW /HPF; EPITHELIAL CELLS,URINE MODERATE /LPF; RBC,URINE 0-5 /HPF (0-5)
[2019-12-26] VITALS (8 sets, daily range): BP systolic 105–120; BP diastolic 60–99
[2019-12-26] MEDS ORDERED: TRAMADOL HCL 50 MG TAB PO PRN (01:15)
[2019-12-26] MEDS ORDERED: SODIUM CHLORIDE 0.9% 500ML 500 ML ONE (01:39)
--- NOTE | 2019-12-26 07:00 | NUR ---
BEDSIDE SHIFT REPORT RECEIVED FROM THE ASSISTANT SCIENTIST RN. PT IS AAOX4. EDUCATED PT ABOUT FALL PRECAUTIONS. PT VERBALIZED UNDERSTANDING. CALL LIGHT WITH IN EASY REACH. INSTRUCTED PT TO USE CALL LIGHT FOR ALL THE NEEDS. BED IS LOW AND LOCKED. SIDE RAILS X2. BED ALARM IS ON. PT DENIES NEEDS AT THIS TIME.
[2019-12-26 07:50] LABS: BASOPHILS % 0.5 % (0.0-1.0); EOSINOPHILS % 0.5 % (0.0-6.0); LYMPHOCYTES % 22.7 % (18.0-39.1); MEAN CORPUSCULAR HEMOGLOBIN 30.4 pg (28-32); MEAN CORPUSCULAR HGB CONC 33.3 g/dL (31-35); MEAN CORPUSCULAR VOLUME 91.1 fL (81-99); MONOCYTES # (AUTO) 0.6 (0.2-0.8); NEUTROPHILS # (AUTO) 2.7 (2.1-6.9); NEUTROPHILS % 63.1 % (38.7-80.0); PLATELET COUNT 72 x10e3/uL (140-360); RED BLOOD COUNT 4.28 x10e6/uL (3.6-5.1); RED CELL DISTRIBUTION WIDTH 19.2 % (11.7-14.4)
[2019-12-26 08:10] LABS: ALANINE AMINOTRANSFERASE 34 IU/L (0-55); ALBUMIN 3.5 g/dL (3.5-5.0); ALBUMIN/GLOBULIN RATIO 1.3 (0.8-2.0); ALKALINE PHOSPHATASE 87 IU/L (40-150); ANION GAP 14.9 mmol/L (8-16); BLOOD UREA NITROGEN 9 mg/dL (7-26); BUN/CREATININE RATIO 12 (6-25); CALCIUM 9.1 mg/dL (8.4-10.2); CHLORIDE 82 mmol/L (98-107); CREATININE, SERUM 0.74 mg/dL (0.57-1.11); EST GLOMERULAR FILTRATION RATE > 60 ML/MIN (60-); GLUCOSE 112 mg/dL (74-118); SODIUM 137 mmol/L (136-145)
[2019-12-26 08:13] LABS: CARBON DIOXIDE 42 mmol/L (22-29); POTASSIUM 1.9 mmol/L (3.5-5.1)
--- NOTE | 2019-12-26 08:18 | NUR ---
PAGED DR. ANDERSON AND REPORTED PT K LEVEL 1.9 AND CO2 42.
--- NOTE | 2019-12-26 08:20 | NUR ---
PT IS AAOX4. NO DISTRESS OR DISCOMFORT NOTED. HR 83 SR PER TELE.
[2019-12-26] MEDS ORDERED: LOPRESSOR25 MG PO (08:26)
--- NOTE | 2019-12-26 08:26 | NUR ---
PT HOME MED RECONFIRMED WITH PT.
--- NOTE | 2019-12-26 08:27 | NUR ---
PT HOME MEDS RECONFIRMED WITH PT AND DAUGHTER MARY
[2019-12-26] MEDS: POTASSIUM CHLORIDE 20MEQ/100ML 100 ML IV SCH ×2 (08:30→10:35)
--- NOTE | 2019-12-26 08:30 | NUR ---
PER DR. ANDERSON ADMINISTER IV POTASSIUM FIRST THEN K DUR AFTER.
[2019-12-26] MEDS ORDERED: OMEPRAZOLE20 MG PO (08:36)
--- NOTE | 2019-12-26 09:00 | NUR ---
PAGED DR. ANDERSON AND REPORTED THE UPDATED AMMONIA LEVEL 116.
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
[2019-12-26] MEDS: PANTOPRAZOLE SOD 40 MG TABEC PO SCH (09:58)
[2019-12-26] MEDS: METOPROLOL TARTRATE 25 MG TAB PO SCH (09:58)
[2019-12-26] MEDS ORDERED: HYDROCHLOROTHIA50 MG PO (10:52)
--- NOTE | 2019-12-26 12:30 | NUR ---
Nutrition Screen Note RD Recommendation for Physician: Continue diet as ordered Plan of Care: RD following, monitoring for tolerance and adequacy Nutrition reason for involvement: End stage liver disease/cirrhosis diagnosis Primary Diagnose(s): hepatic encephalopathy Ht:67 in Wt: 176.5lbs BMI:27.6 kg/m2 IBW: [address] Assessment:(12/26/2019) Initial encounter with patient. Diet hx: Pt has no known food allergies. Pt denies any diffculty chewing or swallowing nor has any difficulty chewing or swallowing. Pt wears dentures. Pt denies any significant wt changes. Good Po intake. Pt prefers to eat fruit with meals. Current Diet: Cardiac Malnutrition Evaluation (12/26/2019) The patient does not meet criteria for a specified degree of malnutrition at this time. Will re-evaluate at follow-up as appropriate. Diet Education Needs Assessment: Diet education indicated, Nutrition Education Learner(s): pt Time spent: Barriers: No barriers identified. Cultural/Language Modifications: No cultural/language modifications noted. Pt can speak Korean. Readiness: Pt eager to learn. Method: Provided Pt with verbal, handout Topics: Cirrhosis nutrition therapy Understanding/Compliance: Expect good understanding/compliance from pt. Will benefit from reinforcement. Diet Adequacy: Meeting calorie needs, Meeting protein needs, Meeting fluid needs. Tolerance: Tolerating PO Nutrition Care Level: Brett Gray RD[facility]LD[facility]
[2019-12-26] MEDS: POTASSIUM CHLORIDE 20 MEQ TAB CR PO SCH (12:37)
[2019-12-26 16:58] LABS: ANION GAP 13.4 mmol/L (8-16); BLOOD UREA NITROGEN 9 mg/dL (7-26); BUN/CREATININE RATIO 11 (6-25); CALCIUM 9.4 mg/dL (8.4-10.2); CARBON DIOXIDE 40 mmol/L (22-29); CHLORIDE 85 mmol/L (98-107); CREATININE, SERUM 0.79 mg/dL (0.57-1.11); EST GLOMERULAR FILTRATION RATE > 60 ML/MIN (60-); GLUCOSE 127 mg/dL (74-118); SODIUM 136 mmol/L (136-145)
[2019-12-26 17:04] LABS: POTASSIUM 2.4 mmol/L (3.5-5.1)
[2019-12-26] MEDS ORDERED: POTASSIUM CHLORIDE 20MEQ/100ML 200 ML IV ONE (17:15)
--- NOTE | 2019-12-26 17:15 | NUR ---
PAGED DR. ANDERSON AND REPORTED PT K LEVEL 2.4 AND CO2 40. PT IS AAOX3. DAUGHTER AT BEDSIDE. PT DENIES NEEDS AT THIS TIME.
[2019-12-26] MEDS: POTASSIUM CHLORIDE 40 MEQ in SODIUM CHLORIDE 0.9% 1000ML 1,000 ML IV SCH (17:45)
--- NOTE | 2019-12-26 19:07 | NUR ---
BEDSIDE SHIFT REPORT GIVEN TO THE FORESTRY TECHNICIAN RN. DAUGHTER AT BEDSIDE. PT DENIED FURTHER NEEDS.
[2019-12-27] VITALS (8 sets, daily range): BP systolic 106–127; BP diastolic 60–81
[2019-12-27] MEDS: POTASSIUM CHLORIDE 40 MEQ in SODIUM CHLORIDE 0.9% 1000ML 1,000 ML IV SCH (05:17)
[2019-12-27 06:43] LABS: BASOPHILS % 0.5 % (0.0-1.0); EOSINOPHILS % 0.8 % (0.0-6.0); HEMATOCRIT 38.4 % (34.2-44.1); HEMOGLOBIN 12.5 g/dL (12.0-16.0); LYMPHOCYTES # (AUTO) 0.7 (1.0-3.2); LYMPHOCYTES % 19.6 % (18.0-39.1); MEAN CORPUSCULAR HEMOGLOBIN 30.1 pg (28-32); MEAN CORPUSCULAR HGB CONC 32.6 g/dL (31-35); MEAN CORPUSCULAR VOLUME 92.5 fL (81-99); MONOCYTES # (AUTO) 0.5 (0.2-0.8); MONOCYTES % 11.9 % (4.4-11.3); NEUTROPHILS # (AUTO) 2.5 (2.1-6.9); NEUTROPHILS % 66.9 % (38.7-80.0); PLATELET COUNT 71 x10e3/uL (140-360); RED BLOOD COUNT 4.15 x10e6/uL (3.6-5.1); RED CELL DISTRIBUTION WIDTH 19.1 % (11.7-14.4)
--- NOTE | 2019-12-27 06:44 | NUR ---
RECEIVED BEDSIDE SHIFT REPORT FROM OFF GOING NURSE. PATIENT IS RESTING IN BED. NO ACUTE DISTRESS NOTED. CALL LIGHT WITHIN REACH. BED IN THE LOWEST POSITION.
[2019-12-27 07:03] LABS: ANION GAP 11.2 mmol/L (8-16); BLOOD UREA NITROGEN 6 mg/dL (7-26); BUN/CREATININE RATIO 9 (6-25); CALCIUM 8.6 mg/dL (8.4-10.2); CARBON DIOXIDE 39 mmol/L (22-29); CHLORIDE 89 mmol/L (98-107); CREATININE, SERUM 0.67 mg/dL (0.57-1.11); EST GLOMERULAR FILTRATION RATE > 60 ML/MIN (60-); GLUCOSE 126 mg/dL (74-118); SODIUM 137 mmol/L (136-145)
[2019-12-27 07:57] LABS: POTASSIUM 2.2 mmol/L (3.5-5.1)
--- NOTE | 2019-12-27 07:59 | NUR ---
NOTIFIED DR. ANDERSON OF POTASSIUM LEVEL OF 2.2. NEW CONSULT FOR DR. GUEVARA ORDERED. NO REPLACEMENT PATIENT HAS 40 MEQ PO SCHEDULED FOR DAILY.
[2019-12-27] MEDS ORDERED: AMILORIDE HCL 5 MG TAB PO STA (08:21)
[2019-12-27] MEDS ORDERED: POTASSIUM CHLORIDE 20 MEQ in SODIUM CHLORIDE 0.9% 1000ML 1,000 ML IV SCH (08:30)
[2019-12-27] MEDS ORDERED: POTASSIUM CHLORIDE 20MEQ/100ML 100 ML IV ONE ×5 (08:30→14:30)
[2019-12-27] MEDS: PANTOPRAZOLE SOD 40 MG TABEC PO SCH (08:42)
[2019-12-27] MEDS: POTASSIUM CHLORIDE 20 MEQ TAB CR PO SCH (08:42)
[2019-12-27] MEDS: METOPROLOL TARTRATE 25 MG TAB PO SCH (08:42)
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
--- NOTE | 2019-12-27 10:03 | Diagnostic Imaging Report ---
EXAMINATION: CHEST SINGLE (PORTABLE) INDICATION: Shortness of breath and weakness. COMPARISON: Chest CT on 09/10/2019. FINDINGS: TUBES and LINES: None. LUNGS: Normal lung volumes. There is pulmonary vessel congestion without mich edema there is patchy opacification of the right infrahilar region. PLEURA: The left costophrenic sulcus is excluded from [id number]. No Pneumothorax. HEART AND MEDIASTINUM: The cardiomediastinal silhouette is mildly enlarged. There are atherosclerotic calcifications within the aorta. BONES AND SOFT TISSUES: No acute osseous lesion. Soft tissues are unremarkable. UPPER ABDOMEN: No free air under the diaphragm. IMPRESSION: 1. Patchy opacification of the right infrahilar region which may represent atelectasis and/or right lower lobe pneumonia in the proper clinical context. 2. Cardiomegaly with pulmonary vascular congestion. No mich pulmonary edema. Signed by: Sydney Frankel MD on 12/27/2019 10:00 AM
[2019-12-27] MEDS ORDERED: MAGNESIUM SULFATE 2GM/50ML 50 ML IV ONE (10:30)
--- NOTE | 2019-12-27 11:05 | Consultation ---
DATE OF CONSULTATION: 12/27/2019 SUBJECTIVE: Ms. Amaya is a pleasant 64-year-old white female, underlying history of hepatitis C, status post chemotherapy, history of right arm fracture. Renal consult for management of hypokalemia. She has been on baclofen, hydrochlorothiazide, metoprolol at home. She currently denies any nausea, vomiting, shortness of breath, or abdominal pain. She came in with apparent hepatic encephalopathy. White count today is 3.77, platelets are 71, with a sodium 137, potassium 2.2, bicarbonate 39, and her ammonia level of 128. She has urinalysis done shows specific gravity 1.020, 0-5 RBC, 11 to 20 WBCs, dipstick negative for proteins. ALLERGIES: SHE IS ALLERGIC TO GABAPENTIN. MEDICATIONS: She is currently on: 1. Metoprolol 25 mg daily. 2. Ondansetron p.r.n. 3. Protonix. 4. Tramadol p.r.n. 5. I changed her IV fluid to normal saline with KCl 20 mEq/L. 6. She is currently receiving her potassium riders. SOCIAL HISTORY: The patient used to smoke, has quit. FAMILY HISTORY: Significant for hypertension. PAST MEDICAL HISTORY: History of abdominal hernia repair, cholecystectomy, left arm surgery, underlying history of cirrhosis, hepatitis C. PHYSICAL EXAMINATION: GENERAL: Awake, alert, oriented x3, lying supine, in no apparent distress. VITAL SIGNS: Blood pressure 130/71, pulse rate 79, afebrile, oxygen saturation 94% on room air. HEAD and NECK: Cornea clear, mild icterus if at all in the sclera. Oral mucosa moist. Neck veins not distended. LUNGS: Clear. No rales. HEART: S1 and S2 audible. ABDOMEN: Soft, nontender. LOWER EXTREMITY EXAMINATION: No edema. Scar noted left upper extremity of surgery. IMPRESSION AND PLAN: Profound hypokalemia in a lady with hepatic encephalopathy, cirrhosis, was on hydrochlorothiazide at home, sodium 137, thrombocytopenic, hep C positive, relatively asymptomatic. Plan to aggressively replace potassium, amiloride 10 mg p.o. x1. We will obtain next magnesium level and replace if low. Monitor patient's electrolytes, kidney function, urine output with you. MD SEGUN Bowman/CARLOSL /[id number]
[2019-12-27] MEDS: KCL 20MEQ/.9 SOD CHL 1,000 ML IV SCH ×2 (11:14→23:20)
--- NOTE | 2019-12-27 18:54 | NUR ---
BEDSIDE SHIFT REPORT GIVEN TO ONCOMING NURSE. PATIENT IS RESTING IN BED. NO ACUTE DISTRESS NOTED AT THIS TIME. CALL LIGHT WITHIN REACH. BED IN THE LOWEST POSITION.
[2019-12-28] VITALS (8 sets, daily range): BP systolic 101–117; BP diastolic 56–74
[2019-12-28] MEDS: KCL 20MEQ/.9 SOD CHL 1,000 ML IV SCH ×2 (01:40→15:10)
--- NOTE | 2019-12-28 07:31 | Progress Note ---
DATE: SUBJECTIVE: The patient is a 64-year-old lady came in with hypokalemia, severe metabolic alkalosis. The patient is getting fluids. Stopped her hydrochlorothiazide, aggressive replacement if potassium is being done. Awaiting labs today. PHYSICAL EXAMINATION: GENERAL: The patient is alert and oriented x3 with no complaints today. VITAL SIGNS: Temperature is 97.1, pulse of 89, respirations of 20, blood pressure is 117/74, pulse oximetry of 96%. HEENT: Normocephalic, atraumatic. Pupils are reactive to light and accommodation. CVS: S1 and S2 normal. Regular rate and rhythm. ABDOMEN: Soft, nontender, nondistended. EXTREMITIES: No clubbing, no cyanosis, no edema. LABORATORY VALUES: From today are not done yet and potassium is 2.2 yesterday. SEROLOGY: Coronavirus is pending. ASSESSMENT AND PLAN: This is Ms. Amaya with: 1. Hypokalemia. 2. Encephalopathy. 3. Hepatitis C. 4. History of hepatic encephalopathy and profound hypokalemia. Continue to monitor the patient. Labs will be done today. Further recommendation per clinical course. Discharge depending on potassium levels. MD BEBA MikeJ/MODL /[id number]
[2019-12-28 07:37] LABS: ALANINE AMINOTRANSFERASE 34 IU/L (0-55); ALBUMIN 3.4 g/dL (3.5-5.0); ALBUMIN/GLOBULIN RATIO 1.3 (0.8-2.0); ALKALINE PHOSPHATASE 92 IU/L (40-150); ANION GAP 12.1 mmol/L (8-16); BLOOD UREA NITROGEN 7 mg/dL (7-26); BUN/CREATININE RATIO 10 (6-25); CALCIUM 8.9 mg/dL (8.4-10.2); CARBON DIOXIDE 31 mmol/L (22-29); CHLORIDE 99 mmol/L (98-107); CREATININE, SERUM 0.73 mg/dL (0.57-1.11); EST GLOMERULAR FILTRATION RATE > 60 ML/MIN (60-); GLUCOSE 144 mg/dL (74-118); POTASSIUM 3.1 mmol/L (3.5-5.1); SODIUM 139 mmol/L (136-145)
[2019-12-28] MEDS: PANTOPRAZOLE SOD 40 MG TABEC PO SCH (08:39)
[2019-12-28] MEDS: METOPROLOL TARTRATE 25 MG TAB PO SCH (08:39)
[2019-12-28] MEDS: POTASSIUM CHLORIDE 20 MEQ TAB CR PO SCH (08:39)
--- NOTE | 2019-12-28 09:20 | NUR ---
ASSESSMENT: Spiritual concern Pt worried. Pt's daughter at bedside. Pt states she is concerned about source of illness. Intervention: Provided hospitality and empathic listening. Facilitated illness review and storytelling. Provided prayer and information on how to reach scientific aide, if needed. Outcome: Pt & dtr expressed appreciation for visit. No need to follow at this time. JULES MESA Professional [employer]er Spiritual Care Department O: [phone]
--- NOTE | 2019-12-28 09:59 | NUR ---
Dr Ramos here for rounds , low potassium 3.1 lab notified him earlier, New orders recvd. Patient resting in bed, Alert with no distress, Daughter at bed side, Refused Bed alarm, call light in reach
[2019-12-28] MEDS ORDERED: POTASSIUM CHLORIDE 20MEQ/100ML 200 ML IV ONE (10:30)
[2019-12-28] MEDS: SPIRONOLACTONE 25 MG TAB PO SCH (17:03)
--- NOTE | 2019-12-28 19:27 | NUR ---
RECEIVED BEDSIDE SHIFT REPORT FROM PREVIOUS NURSE. CALL LIGHT WITHIN REACH. PATIENT IN BED. DAUGHTER AT THE BEDSIDE. PATIENT IN NO PAIN OR DISTRESS
[2019-12-29] VITALS (8 sets, daily range): BP systolic 98–111; BP diastolic 55–68
[2019-12-29] MEDS: KCL 20MEQ/.9 SOD CHL 1,000 ML IV SCH ×2 (05:58→18:55)
--- NOTE | 2019-12-29 07:21 | NUR ---
GAVE BEDSIDE SHIFT REPORT TO ONCOMING NURSE. CALL LIGHT WITHIN REACH. PATIENT IN BED. HOURLY ROUNDING PERFORMED.
--- NOTE | 2019-12-29 07:41 | NUR ---
MD IN TO SEE PATIENT, NEW ORDERS RECEIVED. IV FLUID INFUSING ORDERED. PATIENT IN BED WITH CALL LIGHT AT REACH.
[2019-12-29 08:09] LABS: BASOPHILS % 0.5 % (0.0-1.0); EOSINOPHILS # (AUTO) 0.1 (0.0-0.4); EOSINOPHILS % 2.1 % (0.0-6.0); HEMATOCRIT 40.9 % (34.2-44.1); LYMPHOCYTES # (AUTO) 0.8 (1.0-3.2); LYMPHOCYTES % 21.2 % (18.0-39.1); MEAN CORPUSCULAR HEMOGLOBIN 30.4 pg (28-32); MEAN CORPUSCULAR HGB CONC 31.8 g/dL (31-35); MEAN CORPUSCULAR VOLUME 95.6 fL (81-99); MONOCYTES # (AUTO) 0.4 (0.2-0.8); MONOCYTES % 9.5 % (4.4-11.3); NEUTROPHILS # (AUTO) 2.5 (2.1-6.9); NEUTROPHILS % 66.7 % (38.7-80.0); PLATELET COUNT 63 x10e3/uL (140-360); RED BLOOD COUNT 4.28 x10e6/uL (3.6-5.1); RED CELL DISTRIBUTION WIDTH 19.1 % (11.7-14.4)
[2019-12-29 08:29] LABS: ALANINE AMINOTRANSFERASE 30 IU/L (0-55); ALBUMIN 3.3 g/dL (3.5-5.0); ALBUMIN/GLOBULIN RATIO 1.2 (0.8-2.0); ALKALINE PHOSPHATASE 76 IU/L (40-150); ANION GAP 9.5 mmol/L (8-16); BLOOD UREA NITROGEN 6 mg/dL (7-26); BUN/CREATININE RATIO 8 (6-25); CALCIUM 8.6 mg/dL (8.4-10.2); CARBON DIOXIDE 29 mmol/L (22-29); CHLORIDE 105 mmol/L (98-107); CREATININE, SERUM 0.73 mg/dL (0.57-1.11); EST GLOMERULAR FILTRATION RATE > 60 ML/MIN (60-); GLUCOSE 131 mg/dL (74-118); POTASSIUM 3.5 mmol/L (3.5-5.1); SODIUM 140 mmol/L (136-145)
[2019-12-29] MEDS: SPIRONOLACTONE 25 MG TAB PO SCH ×2 (09:21→17:31)
[2019-12-29] MEDS: PANTOPRAZOLE SOD 40 MG TABEC PO SCH (09:22)
[2019-12-29] MEDS: POTASSIUM CHLORIDE 20 MEQ TAB CR PO SCH (09:22)
[2019-12-29] MEDS: METOPROLOL TARTRATE 25 MG TAB PO SCH (09:32)
--- NOTE | 2019-12-29 11:35 | NUR ---
PATIENT AMBULATED TO THE RESTROOM AND BACK TO BED, NO COMPLAIN VOICED. BED IN LOWER POSITION, CALL LIGHT AT REACH.
--- NOTE | 2019-12-29 12:20 | Progress Note ---
DATE: SUBJECTIVE: The patient came in with hypokalemia and the patient has been getting replacement of potassium for the last 3 days, has been taken also hydrochlorothiazide, currently on no diuresis at this point except for lactulose. MEDICINES: Reviewed. PHYSICAL EXAMINATION: VITAL SIGNS: Temperature is 98.2, pulse of 67, respirations 18, blood pressure is 109/64, and pulse oximetry of 99%. HEENT: Normocephalic and atraumatic. Pupils are reactive. CVS: S1 and S2 normal. Regular rate and rhythm. ABDOMEN: Soft, nontender, nondistended. EXTREMITIES: No clubbing, no cyanosis, no edema. LABORATORY DATA: The patient laboratory values from yesterday, sodium 139, potassium 3.1, BUN 7, creatinine 0.73, magnesium is 2.2, and ammonia was a little elevated at 128 on the 1st. ASSESSMENT AND PLAN: Ms. Anna Amaya with hypokalemia, continue aggressive correction of potassium. Renal on case. We will check her ammonia levels today and also recheck her potassium level. Discharge depending on electrolyte levels. Further recommendation per clinical course. We will discuss case with also Dr. Ramos. MD CHANNING Mike/MODL /[id number]
--- NOTE | 2019-12-29 19:20 | NUR ---
patient received awake, alert, lying quietly in bed. no c/o pain noted. ivf continue to infuse without difficulty. pm assessment complete. benjamin tafoya placed within reach. patient instructed to call for assistance when needed.
[2019-12-30] VITALS: BP 103/65
--- NOTE | 2019-12-30 07:05 | Progress Note ---
DATE: 12/30/2019 SUBJECTIVE: The patient is a 64-year-old female, who came in with hypokalemia, corrected to 3.5 yesterday. No complaints from the patient, wants to go home. No chest pain. No shortness of breath. PHYSICAL EXAMINATION: VITAL SIGNS: Temperature is 98.7, pulse 76, respirations of 18, blood pressure is 103/65, pulse oximetry 96%. HEENT: Normocephalic, atraumatic. Pupils are reactive. CVS: S1 and S2 normal. Regular rate and rhythm. ABDOMEN: Soft, nontender, nondistended. EXTREMITIES: No clubbing, no cyanosis, no edema. LABORATORY VALUES: Sodium is 140, potassium 3.5, BUN of 6, creatinine 0.73. Hematology, all within normal limits. Serology, nondetected coronavirus, and last ammonia level was 128. ASSESSMENT AND PLAN: This is Ms. Anna Amaya with hepatic encephalopathy, doing much better. Potassium has been improved to 3.5. We will wait for today's labs and discharged today on Lasix and Aldactone, no hydrochlorothiazide. Further recommendation per clinical course. We will continue to monitor the patient. The patient should be followed up with her primary care physician in 1 to 2 days. MD CHANNING Mike/MODL /[id number]
--- NOTE | 2019-12-30 07:13 | NUR ---
PATIENT OUT OF BED TO CHAIR WATCHING TV, NO COMPLAIN VOICED. IV FLUID INFUSING ORDERED. BED IN LOWER POSITION, CALL LIGHT AT REACH.
[2019-12-30 07:57] VITALS: BP 100/65
[2019-12-30 08:10] VITALS: BP 100/63
[2019-12-30 08:28] LABS: ANION GAP 10.2 mmol/L (8-16); BLOOD UREA NITROGEN 7 mg/dL (7-26); BUN/CREATININE RATIO 10 (6-25); CALCIUM 8.8 mg/dL (8.4-10.2); CARBON DIOXIDE 27 mmol/L (22-29); CHLORIDE 107 mmol/L (98-107); CREATININE, SERUM 0.67 mg/dL (0.57-1.11); EST GLOMERULAR FILTRATION RATE > 60 ML/MIN (60-); GLUCOSE 86 mg/dL (74-118); POTASSIUM 4.2 mmol/L (3.5-5.1); SODIUM 140 mmol/L (136-145)
[2019-12-30] MEDS: SPIRONOLACTONE 25 MG TAB PO SCH (08:53)
[2019-12-30] MEDS: PANTOPRAZOLE SOD 40 MG TABEC PO SCH (08:54)
[2019-12-30] MEDS: METOPROLOL TARTRATE 25 MG TAB PO SCH (08:54)
[2019-12-30] MEDS: POTASSIUM CHLORIDE 20 MEQ TAB CR PO SCH (08:54)
--- NOTE | 2019-12-30 10:58 | NUR ---
EDUCATED ABOUT IMM, SIGNED, FILED IN CHART, WITH COPY LEFT WITH FAMILY AT BEDSIDE.
--- NOTE | 2019-12-30 11:15 | NUR ---
PATIENT AMBULATING IN THE ROOM, NO COMPLAIN VOICED. CALL LIGHT AT REACH.
[2019-12-30 11:42] VITALS: BP 112/66
[2019-12-30] MEDS ORDERED: ALDACTONE25 MG PO (11:47)
[2019-12-30] MEDS ORDERED: ONDANSETRON HCL 4 MG ORAL DISINTEGRATING TAB PO PRN (12:30)
--- NOTE | 2019-12-30 12:35 | NUR ---
PATIENT DISCHARGED HOME. DISCHARGE INSTRUCTIONS, PRESCRIPTIONS, AND FOLLOW UP GIVEN TO PATIENT AND DAUGHTER, THEY VERBALIZED UNDERSTANDING. IV TO RIGHT HAND REMOVED WITH TIP INTACT. ALL PERSONAL ITEMS TAKEN WITH PATIENT. LEFT UNIT PER WHEEL CHAIR TO FRONT LOBBY IN STABLE CONDITION.
--- OUTSIDE RECORDS SUMMARY | 2019-12-31 18:12 | XMS REPORT | Continuity of Care Document ---
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 [facility] of lumbar intervertebral disc (disorder) Active Problem 07/08/2017 Data migrated from [employer] on 07/24/14. [facility], SUSAN Cummings [facility] Fracture of bone (disorder) Ac tive Problem [facility], Reece Cummings NONUNION OF FRACTURE Active [facility] Medications Medication Details Route Status Patient Instructions Ordering Provider Order Date Source Acetaminophen 325 MG / Hydrocodone Kelsey trate 10 MG Oral Tablet [Belpre 10/325] 1 -2 tab, PO, Q6H, # 60 tab, 0 Refill(s) , given to patient Active 09/27/2014 [facility] docusate sodium 100 mg oral capsule 100 mg = 1 cap, PO, BID, # 30 cap, 0 Refill(s) Active 09/27/2014 [facility] Aspirin 325 MG Oral Tablet 325 mg = 1 tab, PO, BID, # 22 tab, 0 Refill(s) Active 09/27/2014 [facility] Benzocaine 15 MG / Menthol 3.6 MG Lozeng e [Cepacol Sore Throat Pain Relief 15/3.6] Notes: Cepacol lozenges Dispense 1 box = 16 lozenges (Same As: Cepacol Lozenges) No Longer Active 09/25/2014 [facility] Acetaminophen Notes: Do not ex ceed 4 gm/day. (Same as: Tylenol) No Longer Active 09/25/2014 [facility] morphine Sulfate Notes: Do not crush (Same as:Oramorph SR, MS Contin) Inactive 09/25/2014 [facility] Docusate Notes: (Same as: Cola ce) (Do Not Crush) No Longer Active 09/25/2014 [facility] Sodium Chloride 0.154 MEQ/ML Injectable Solution 500 mL, 500 ml/hr, Infuse Over: 1 hr, Route: IV, 500, Drug form: INJ, ONCE, Priority: STAT, Dosing Weight 84.091 kg, Start date: 09/25/14 7:14:00, Duration: 1 doses or times, Stop date: 09/25/14 7:14:00 Inactive 09/25/2014 [facility] NS 1,000 mL 1,000 mL, Rate: 10 0 ml/hr, Infuse over: 10 hr, Route: IV, Dosing Weight 84.091 kg, Total Volume: 1,000, Start date: 09/24/14 22:26:00, Duration: 30 day, Stop date: 10/24/14 22:25:00 No Longer Active 09/25/2014 [facility] PlasmaLyte A PH-7.4 (Bolus) IV 1,000 mL, 1000 ml/hr, Route: IV, Drug Form: INJ, Dosing Weight 84.091, kg, ONCE, Start date: 09/24/14 21:35:00, Stop date: 09/24/14 21:35:00 Inactive 09/25/2014 [facility] sennosides, [facility] Notes: (Same a s: Senokot) No Longer Active 09/25/2014 [facility] Enoxaparin Notes: (Same as: Lo venox) No Longer Active 09/25/2014 [facility] Acetaminophen Notes: Infuse ov er 15 minutes Do not exceed 4gm/day of acetaminophen MEDICATION WASTE Product Size: 1000 mg Product Wasted: ___ mg No Longer Active 09/24/2014 [facility] Dilaudid Notes: (Same as: Dila udid) No Longer Active 09/24/2014 [facility] morphine Sulfate Notes: Do not crush (Same as:Oramorph SR, MS Contin) Inactive 09/24/2014 [facility] Ondansetron Notes: (Same as: Jenny wills) MEDICATION WASTE Product Size: 4 mg Product Wasted: ___ mg No Longer Active 09/24/2014 [facility] tizanidine Notes: (Same As: Za naflex) No Longer Active 09/24/2014 [facility] Docusate Notes: (Same as: Cola ce) (Do Not Crush) Inactive 09/24/2014 [facility] Cefazolin Notes: (Same As: Anc ef, Kefzol) Cefazolin FOR IV SET ONLY MEDICATION WASTE Product Size: 1000 mg Product Wasted: ___ mg No Longer Active 09/24/2014 [facility] ropivacaine Notes: Same as: Na ropin No Longer Active 09/24/2014 [facility] Midazolam 2 mg, Route: IV, ONC E, Dosing Weight 84.091, kg, Start date: 09/24/14 13:36:00, Stop date: 09/24/14 13:36:00 Inactive 09/24/2014 [facility] Ondansetron Notes: (Same as: Jenny wills) MEDICATION WASTE Product Size: 4 mg Product Wasted: ___ mg Inactive 09/24/2014 [facility] Fentanyl Notes: (Same as: Subl imaze) Preservative free. Inactive 09/24/2014 [facility] Flumazenil Notes: (Same as: Ro mazicon) Inactive 09/24/2014 [facility] Morphine Notes: (Same as:MORPh ine Sulfate) Inactive 09/24/2014 [facility] Hydromorphone Notes: Same as: Dilaudid Inactive 09/24/2014 [facility] Naloxone Notes: (Same as: Narc an) Inactive 09/24/2014 [facility] Oxycodone Notes: (Same as: Miladis icodone) Inactive 09/24/2014 [facility] Ondansetron Notes: (Same as: Jenny wills) MEDICATION WASTE Product Size: 4 mg Product Wasted: ___ mg Inactive 09/24/2014 [facility] Diphenhydramine Notes: (Same a s: Benadryl) No Longer Active 09/24/2014 [facility] Morphine 30 mg, PO, BID, 0 Ref ill(s) No Longer Active 09/21/2014 [facility] diazepam 10 mg oral tablet 10 mg = 1 tab, PO, BID, # 60 tab, 0 Refill(s) No Longer Active 09/21/2014 [facility] Hydromorphone 4 mg, PO, Q4H, 0 Refill(s) No Longer Active 09/21/2014 [facility] tizanidine 2 mg oral capsule 2 mg = 1 cap, PO, Q8H, 0 Refill(s) No Longer Active 09/21/2014 [facility] Allergies, Adverse Reactions, Alerts No Known Medication Allergies Immunizations No Data Provided for This Section Results Order Name Results Value Reference Range Date Interpretation Comments Source CHEM PANEL Magnesium Lvl 1.7 1.8 - 2.4 09/27/2014 [facility] ELECTROLYTES AGAP 10.7 10.0 - 20.0 09/27/2014 [facility] ELECTROLYTES eGFR 80 09/27/2014 Result Comment: The eGFR is calculated using the CKD-EPI formula. In most young, healthy individuals the eGFR will be >90 mL/min/1.73m2. The eGFR declines with age. An eGFR of 60-89 may be normal in some populations, particularly the elderly, for whom the CKD-EPI formula has not been extensively validated. Use of the eGFR is not recommended in the following populations:

Individuals with unstable creatinine concentrations, including patients and those with serious co-morbid conditions.

Patients with extremes in muscle mass or diet.

The data above are obtained from the National Kidney Disease Education Program (NKDEP) which additionally recommends that when the eGFR is used in patients with extremes of body mass index for purposes of drug dosing, the eGFR should be multiplied by the estimated BMI. [facility] ELECTROLYTES Calcium Lvl 8.3 8.5 - 10.5 09/27/2014 [facility] ELECTROLYTES Creatinine Lvl 0.8 0.5 - 1.4 09/27/2014 [facility] ELECTROLYTES Chloride Lvl 108 95 - 109 09/27/2014 [facility] ELECTROLYTES CO2 29 24 - 32 09/27/2014 [facility] ELECTROLYTES Sodium Lvl 144 135 - 145 09/27/2014 [facility] ELECTROLYTES Potassium Lvl 3.7 3.5 - 5.1 09/27/2014 [facility] ELECTROLYTES BUN 3 7 - 22 09/27/2014 [facility] ELECTROLYTES Glucose Lvl 99 70 - 99 09/27/2014 [facility] HEMATOLOGY Platelet 116 133 - 450 09/27/2014 [facility] HEMATOLOGY MPV 8.5 7.4 - 10.4 09/27/2014 [facility] HEMATOLOGY RDW 13.2 11.5 - 14.5 09/27/2014 [facility] HEMATOLOGY MCH 31.0 27.0 - 31.0 09/27/2014 [facility] HEMATOLOGY MCHC 33.4 32.0 - 36.0 09/27/2014 [facility] HEMATOLOGY MCV 93.1 80.0 - 98.0 09/27/2014 [facility] HEMATOLOGY Hct 25.1 36.0 - 48.0 09/27/2014 [facility] HEMATOLOGY Hgb 8.4 12.0 - 16.0 09/27/2014 [facility] HEMATOLOGY RBC 2.70 4.20 - 5.40 09/27/2014 [facility] HEMATOLOGY WBC 5.5 3.7 - 10.4 09/27/2014 [facility] HEMATOLOGY Monocytes 10.1 2.0 - 12.0 09/27/2014 [facility] HEMATOLOGY Segs 46.8 45.0 - 75.0 09/27/2014 [facility] HEMATOLOGY Lymphocytes 40.4 20.0 - 40.0 09/27/2014 [facility] HEMATOLOGY Eosinophils # 0.1 0.0 - 0.5 09/27/2014 [facility] HEMATOLOGY Lymphocytes # 2.2 1.0 - 5.5 09/27/2014 [facility] HEMATOLOGY Monocytes # 0.6 0.0 - 0.8 09/27/2014 [facility] HEMATOLOGY Basophils 0.8 0.0 - 1.0 09/27/2014 [facility] HEMATOLOGY Segs-Bands # 2.6 1.5 - 8.1 09/27/2014 [facility] HEMATOLOGY Eosinophils 1.9 0.0 - 4.0 09/27/2014 [facility] CHEM PANEL ALT 35 0 - 65 09/26/2014 [facility] CHEM PANEL Total Protein 5.3 6.4 - 8.4 09/26/2014 [facility] CHEM PANEL Albumin Lvl 2.4 3.5 - 5.0 09/26/2014 [facility] CHEM PANEL Bili Total 0.5 0.2 - 1.3 09/26/2014 [facility] CHEM PANEL Bili Direct 0.1 0.0 - 0.3 09/26/2014 [facility] CHEM PANEL AST 32 0 - 37 09/26/2014 [facility] CHEM PANEL Alk Phos 67 39 - 136 09/26/2014 [facility] CHEM PANEL A/G Ratio 0.8 0.7 - 1.6 09/26/2014 [facility] CHEM PANEL Bili Indirect 0.4 0.0 - 1.0 09/26/2014 [facility] CHEM PANEL Globulin 2.9 2.0 - 4.0 09/26/2014 [facility] CHEM PANEL Magnesium Lvl 1.6 1.8 - 2.4 09/26/2014 [facility] ELECTROLYTES AGAP 9.8 10.0 - 20.0 09/26/2014 [facility] ELECTROLYTES eGFR 94 09/26/2014 Result Comment: The eGFR is calculated using the CKD-EPI formula. In most young, healthy individuals the eGFR will be >90 mL/min/1.73m2. The eGFR declines with age. An eGFR of 60-89 may be normal in some populations, particularly the elderly, for whom the CKD-EPI formula has not been extensively validated. Use of the eGFR is not recommended in the following populations:

Individuals with unstable creatinine concentrations, including patients and those with serious co-morbid conditions.

Patients with extremes in muscle mass or diet.

The data above are obtained from the National Kidney Disease Education Program (NKDEP) which additionally recommends that when the eGFR is used in patients with extremes of body mass index for purposes of drug dosing, the eGFR should be multiplied by the estimated BMI. [facility] ELECTROLYTES CO2 29 24 - 32 09/26/2014 [facility] ELECTROLYTES Calcium Lvl 8.2 8.5 - 10.5 09/26/2014 [facility] ELECTROLYTES Creatinine Lvl 0.7 0.5 - 1.4 09/26/2014 [facility] ELECTROLYTES Potassium Lvl 3.8 3.5 - 5.1 09/26/2014 [facility] ELECTROLYTES BUN 4 7 - 22 09/26/2014 [facility] ELECTROLYTES Glucose Lvl 96 70 - 99 09/26/2014 [facility] ELECTROLYTES Chloride Lvl 109 95 - 109 09/26/2014 [facility] ELECTROLYTES Sodium Lvl 144 135 - 145 09/26/2014 [facility] HEMATOLOGY MCH 30.8 27.0 - 31.0 09/26/2014 [facility] HEMATOLOGY MCHC 33.1 32.0 - 36.0 09/26/2014 [facility] HEMATOLOGY Hct 24.5 36.0 - 48.0 09/26/2014 [facility] HEMATOLOGY MCV 92.9 80.0 - 98.0 09/26/2014 [facility] HEMATOLOGY Hgb 8.1 12.0 - 16.0 09/26/2014 [facility] HEMATOLOGY MPV 8.7 7.4 - 10.4 09/26/2014 [facility] HEMATOLOGY Platelet 111 133 - 450 09/26/2014 [facility] HEMATOLOGY RDW 13.6 11.5 - 14.5 09/26/2014 [facility] HEMATOLOGY WBC 5.7 3.7 - 10.4 09/26/2014 [facility] HEMATOLOGY RBC 2.64 4.20 - 5.40 09/26/2014 [facility] HEMATOLOGY Monocytes # 0.6 0.0 - 0.8 09/26/2014 [facility] HEMATOLOGY Basophils 0.6 0.0 - 1.0 09/26/2014 [facility] HEMATOLOGY Lymphocytes # 1.9 1.0 - 5.5 09/26/2014 [facility] HEMATOLOGY Segs-Bands # 3.1 1.5 - 8.1 09/26/2014 [facility] HEMATOLOGY Eosinophils 0.8 0.0 - 4.0 09/26/2014 [facility] HEMATOLOGY Monocytes 11.1 2.0 - 12.0 09/26/2014 [facility] HEMATOLOGY Lymphocytes 33.6 20.0 - 40.0 09/26/2014 [facility] HEMATOLOGY Segs 53.9 45.0 - 75.0 09/26/2014 [facility] CHEM PANEL eGFR 80 09/25/2014 Result Comment: The eGFR is calculated using the CKD-EPI formula. In most young, healthy individuals the eGFR will be >90 mL/min/1.73m2. The eGFR declines with age. An eGFR of 60-89 may be normal in some populations, particularly the elderly, for whom the CKD-EPI formula has not been extensively validated. Use of the eGFR is not recommended in the following populations:

Individuals with unstable creatinine concentrations, including patients and those with serious co-morbid conditions.

Patients with extremes in muscle mass or diet.

The data above are obtained from the National Kidney Disease Education Program (NKDEP) which additionally recommends that when the eGFR is used in patients with extremes of body mass index for purposes of drug dosing, the eGFR should be multiplied by the estimated BMI. [facility] CHEM PANEL Sodium Lvl 141 135 - 145 09/25/2014 [facility] CHEM PANEL Chloride Lvl 106 95 - 109 09/25/2014 [facility] CHEM PANEL CO2 26 24 - 32 09/25/2014 [facility] CHEM PANEL Potassium Lvl 4.1 3.5 - 5.1 09/25/2014 [facility] CHEM PANEL AGAP 13.1 10.0 - 20.0 09/25/2014 [facility] CHEM PANEL Calcium Lvl 8.0 8.5 - 10.5 09/25/2014 [facility] CHEM PANEL BUN 6 7 - 22 09/25/2014 [facility] CHEM PANEL Creatinine Lvl 0.8 0.5 - 1.4 09/25/2014 [facility] CHEM PANEL Glucose Lvl 108 70 - 99 09/25/2014 [facility] HEMATOLOGY MCHC 34.2 32.0 - 36.0 09/25/2014 [facility] HEMATOLOGY RDW 12.8 11.5 - 14.5 09/25/2014 [facility] HEMATOLOGY MCV 90.6 80.0 - 98.0 09/25/2014 [facility] HEMATOLOGY MCH 31.0 27.0 - 31.0 09/25/2014 [facility] HEMATOLOGY Platelet 117 133 - 450 09/25/2014 [facility] HEMATOLOGY RBC 2.84 4.20 - 5.40 09/25/2014 [facility] HEMATOLOGY Hgb 8.8 12.0 - 16.0 09/25/2014 [facility] HEMATOLOGY WBC 7.9 3.7 - 10.4 09/25/2014 [facility] HEMATOLOGY Hct 25.7 36.0 - 48.0 09/25/2014 [facility] HEMATOLOGY MPV 8.4 7.4 - 10.4 09/25/2014 [facility] HEMATOLOGY Monocytes # 0.8 0.0 - 0.8 09/25/2014 [facility] HEMATOLOGY Segs-Bands # 5.5 1.5 - 8.1 09/25/2014 [facility] HEMATOLOGY Lymphocytes # 1.6 1.0 - 5.5 09/25/2014 [facility] HEMATOLOGY Basophils 0.2 0.0 - 1.0 09/25/2014 [facility] HEMATOLOGY Monocytes 9.6 2.0 - 12.0 09/25/2014 [facility] HEMATOLOGY Eosinophils 0.1 0.0 - 4.0 09/25/2014 [facility] HEMATOLOGY Lymphocytes 20.8 20.0 - 40.0 09/25/2014 [facility] HEMATOLOGY Segs 69.3 45.0 - 75.0 09/25/2014 [facility] URINE AND STOOL UA Color Light Yellow *NA* (09/25/14 3:15 AM) Yellow 09/25/2014 [facility] URINE AND STOOL UA Turbidity Clear (09/25/14 3:15 AM) Clear 09/25/2014 [facility] URINE AND STOOL UA RBC 1 0 - 2 09/25/2014 [facility] URINE AND STOOL UA Mucus Few /LPF None Seen /LPF 09/25/2014 [facility] URINE AND STOOL UA WBC <1 0 - 5 09/25/2014 [facility] URINE AND STOOL UA Nitrite Negative (09/25/14 3:15 AM) Negative 09/25/2014 [facility] URINE AND STOOL UA Sq Epi Few /LPF Few /LPF 09/25/2014 [facility] URINE AND STOOL UA Leuk Est Negative (09/25/14 3:15 AM) Negative 09/25/2014 [facility] URINE AND STOOL UA Ketones Negative mg/dL Negative mg/dL 09/25/2014 [facility] URINE AND STOOL UA Urobilinogen <=1.0 mg/dL 0.1 - 1.0 09/25/2014 [facility] URINE AND STOOL UA Spec Grav 1.007 <=1.030 09/25/2014 [facility] URINE AND STOOL UA Blood Small *ABN* (09/25/14 3:15 AM) Negative 09/25/2014 [facility] URINE AND STOOL UA Bili Negative *NA* (09/25/14 3:15 AM) Negative 09/25/2014 [facility] URINE AND STOOL UA pH 5.0 5.0 - 8.0 09/25/2014 [facility] URINE AND STOOL UA Glucose Negative mg/dL Negative mg/dL 09/25/2014 [facility] URINE AND STOOL UA Protein Negative mg/dL Negative mg/dL 09/25/2014 [facility] CHEM PANEL Vitamin D, 25-OH, Total 2 3 30 - 100 09/24/2014 [facility] CHEM PANEL Phosphorus 3.2 2.5 - 4.5 09/24/2014 [facility] CHEM PANEL Magnesium Lvl 1.6 1.8 - 2.4 09/24/2014 [facility] HEMATOLOGY RBC Morph Irina l (09/24/14 5:41 PM) 09/24/2014 [facility] HEMATOLOGY Plt Morph Clump ed (09/24/14 5:41 PM) 09/24/2014 [facility] PARATHYROID PROFILE PTH Intact 58.6 11.1 - 79.5 09/24/2014 [facility] PARATHYROID PROFILE Ca Norm WB 1.08 1.05 - 1.25 09/24/2014 [facility] PARATHYROID PROFILE Ca Ion WB 1.12 1.05 - 1.25 09/24/2014 [facility] Pathology Reports No Data Provided for This Section Diagnostic Reports Report Value Date Source Abdomen complete US EXAM: US A BDOMEN COMPLETE DATE: 07/05/2017 3:15 PM CDT INDICATION: B18.2 Chronic viral hepatitis C COMPARISON: None. TECHNIQUE: Multiplanar grayscale and color Doppler ultrasound of the abdomen. FINDINGS: Liver: Craniocaudal length: 15 cm. Echogenicity: Coarsened Surface nodularity: Suspected subtle nodularity Mass (size and location): None. Portal vein: Normal. Bile ducts: Common bile duct diameter: 0.6 cm. Intrahepatic ducts: Normal. Gallbladder: Gallstones: Present Gallbladder sludge: None. Gallbladder wall: 0.2 cm. Pericholecystic fluid: None. Sonographic Harris sign: Absent. Pancreas: Head and uncinate process: Not well seen Body and tail: Not seen. Spleen: Craniocaudal length: 17 cm. Mass or focal lesion (size and location): None. Right kidney: Hydronephrosis: None. Size: 11.6 x 3.6 x 4.9 cm. Echogenicity: Normal. Mass/Stone/Cyst (size and location): None. Left kidney: Hydronephrosis: None. Size: 10.8 x 4.7 x 5.2 cm. Echogenicity: Normal. Mass/Stone/Cyst (size and location): None. Abdominal aorta and IVC: Visible portions are normal. Ascites: None. IMPRESSION: 1. Suspected early cirrhosis of the alix er. 2. Splenomegaly. 3. Cholelithiasis. 07/05/2017 [facility] [place] Chest 1view DX Portable ap maxwell ierect chest September 24, 2014. HISTORY: Line placement. Comparison is made with an outside chest radiograph dated April 06, 2007. FINDINGS: A lumbar dextroscoliosis is seen. The heart is not enlarged. There is minimal blunting of the left lateral costophrenic sulcus by either a tiny left pleural effusion or pleural thickening. The right sulcus is sharp. No pneumothorax is identified, however, a supine film is suboptimal for that determination. An erect film of the chest is suggested in order to more accurately exclude a pneumothorax. This platelike atelectasis at the left lung base. Otherwise the lungs are clear. CONCLUSION: 1. Platelike atelectasis at the left max g base. 2. Blunting of the left lateral costophr enic sulcus as described above. 09/24/2014 [facility] Humerus 2 views DX EXAM: Two-v iew left Humerus AP lateral DATE: Order Observation End Time: Sep 24, 2014 12:25:00 PM INDICATION: Post operative check radiograph. POST OP TECHNIQUE: AP and lateral projection of the left humerus. COMPARISON: Intraoperative same day. 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 IMPRESSION: Satisfactory alignment of left proximal humerus chronic nonunion with combination locking plates. Bone grafts also present. . 09/24/2014 [facility] Humerus wo contrast CT Examina tion: CT scan of the left humerus without contrast. HISTORY: Left shoulder pain COMPARISON: Point films of the left humerus from 04/06/2007. DLP: 468.69 TECHNIQUE: Multiple axial CT images of the left humerus were obtained without the administration of intravenous contrast. Multiplanar reformatted images were subsequently performed. FINDINGS: There is a chronic appearing, ununited, displaced fracture of the proximal humeral diaphysis with greater than one full shaft width lateral displacement of the distal fracture fragment and associated bayoneting of the fracture fragments. Subcentimeter calcifications with superimposed granulation tissue formation within the intervening space are seen. The remaining osseous structures are intact. The bones are demineralized. Anatomic alignment is maintained across the glenohumeral and elbow joints. There is moderate to severe osteoarthrosis of the radiocapitellar joint with adjacent ossific bodies. Subcentimeter ossific body along the medial aspect of the elbow joint is also seen. IMPRESSION: 1. 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 2. 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 SL: 16 09/14/2014 [facility] Consultation Notes No Data Provided for This Section Discharge Summaries No Data Provided for This Section History and Physicals No Data Provided for This Section Vital Signs Vital Sign Value Date Comments Source Weight 79.545 08/16/2016 [facility] Height 172.72 cm 08/16/2016 [facility] BMI Calculated 26.66 08/16/2016 [facility] Systolic (mm Hg) 111 09/27/2014 [facility] Diastolic (mm Hg) 63 09/27/2014 [facility] Heart Rate 97 09/27/2014 [facility] Respitory Rate 18 09/27/2014 [facility] Temperature Oral (F) 98.9 F 09/27/2014 [facility] Temperature Oral (F) 98.7 F 09/27/2014 [facility] Heart Rate 85 09/27/2014 [facility] Respitory Rate 18 09/27/2014 [facility] Systolic (mm Hg) 116 09/27/2014 [facility] Diastolic (mm Hg) 68 09/27/2014 [facility] Systolic (mm Hg) 103 09/27/2014 [facility] Diastolic (mm Hg) 58 09/27/2014 [facility] Respitory Rate 18 09/27/2014 [facility] Temperature Oral (F) 98.4 F 09/27/2014 [facility] Heart Rate 85 09/27/2014 [facility] BMI Calculated 28.19 09/21/2014 [facility] Weight 84.091 09/21/2014 [facility] [facility] Height 172.72 cm 09/21/2014 [facility] Encounters Location Location Details Encounter Type Encounter Number Reason For Visit Attending Provider ADM Date DC Date Status Source [facility] Outpatient [id number] Raoul Nichole 09/14/2014 09/15/2014 [facility] Inpatient [id number] Raoul Kilpatricko 09/24/2014 09/27/2014 [facility] W[facility] Care [id number] Alexis Hinton 08/16/2016 09/15/2016 [facility] [place] [facility] [id number] Rocky Bhardwaj 07/05/2017 07/06/2017 [facility] [place] Procedures Procedure Code Date Perfomer Comments Source Operation [id number] [facility] [place] Assessment and Plan Assessment and Plan Date Source Extracted from:Title: ORTHO TRAUMA Author: Marily Do LAUNDRY PRESS OPERATOR Date: 09/27/14 [facility]S TRAUMA Doing ok NAD Comfortable Resting in bed "I feel pretty good." Vitals and Temp: Vitals Tmp(F) Pulse BP RR SpO2 FIO2 09/27 11:29 98.9 97 111/63 1 8 100 21% 09/27 08:23 98.7 85 116/68 1 8 97 21% 09/27 04:32 98.4 85 103/58 1 8 98 --- 09/27 00:47 98.1 93 94/62 18 99 --- 09/26 19:57 98.9 94 115/70 1 8 97 --- 24 Hr Tmax: 99.1F (37.28c) at 09/26 15:5 0 Vital Signs are the last 5 in the past 48 hours. Scheduled Meds (4):acetaminophen, docusate, enoxaparin, senna Unscheduled Meds: None PRN Meds (5):benzocaine-menthol topical (benzocaine-menthol 15 mg-3.6 mg mucous membrane lozenge), diphenhydrAMINE, hydromorphone (Dilaudid), hydromorphone (Dilaudid), ondansetron One Time Meds: None Continuous Infusions: None [facility] BUN: 3 mg/dL (09/27/14) Hct: 25.1 % (09/27/14) Hgb: 8.4 g/dL (09/27/14) MCH: 31.0 pg (09/27/14) MCHC: 33.4 g/dL (09/27/14) MCV: 93.1 fL (09/27/14) MPV: 8.5 fL (09/27/14) Platelet: 116 K/CMM (09/27/14) RBC: 2.70 M/CMM (09/27/14) RDW: 13.2 % (09/27/14) WBC: 5.5 K/CMM (09/27/14) LUE SILT R/M/U Intact R/M/U/AIN/PIN Fingers wwp with BCR +2 radial pulse Dressing changed to humerus - sutures intact - no signs of dehiscence LLE SILT SP/DP EHL/FHL/GS/TA intact Toes WWP with BCR 2+ DP Dressing changed to pelvis - no signs of dehiscence DIAGNOSES - 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 Pain: Controlled - pt has a pain spe cialist - Rx [place] given 2. DVT prophylaxis: ASA 325 mg PO BID x 2 weeks 3. HH 8.4 4. Abx: Post op abx per ortho complete 5. PT/OT: Consulted 6. WBS: NWB MANDYE, WBAT LLE 7. Dressings: - Keep dressings clean and dry, changing every other day beginning post-op day 5. - Dressings may be removed and not reapp lied on post-operative day 10 if all incision sites are dry. - Do not apply creams or ointments to in cisions and do not allow incisions to become wet until cleared by Dr. Dayanara. 8. Bowel regimen: Senna 9. Anticipated dispo: No further ortho pedic intervention, follow up with Dr. Nichole on Oct 13, 2014. Call [phone] for appointment. 10. Plan for surgery: None per ORS. 11. Please call Ortho for any question or concerns. Extracted from:Title: Consult Note Author: Mg Mott MD Date: 09/24/14 Assessment/Plan #Left humerus fracture: s/p repair, per ortho; post-op antibiotics ancef. #acute pain: APMS consulted; block being placed. - pt has history of chronic pain. -cont bowel regiment lovenox sq MHUTS consult: page [phone] Addendum by Mg Mott MD on 09/24/2014 16:27 Saw patient again in room. more alert. discussed with family at bedside as well. 09/27/2014 [facility] Plan of Care No Data Provided for This Section Social History Social History Date Source Social History TypeResponse Smoking Status Current every day smoker; Exposure to Tobacco Smoke None; Cigarette Smoking Last 365 Days Yes; Reg Smoking Cessation Counseling Yes entered on: 09/24/14 09/24/2014 SUSAN Cummings Social History TypeResponse Smoking Status Current every day smoker; Exposure to Tobacco Smoke None; Cigarette Smoking Last 365 Days Yes; Reg Smoking Cessation Counseling Yes 09/24/2014 [facility] No data available for this section 09/15/2014 [facility] Family History No Data Provided for This Section Advance Directives No Data Provided for This Section Functional Status No Data Provided for This Section
--- OUTSIDE RECORDS SUMMARY | 2019-12-31 18:12 | XMS REPORT | Continuity of Care Document ---
Author Author [facility] Organization [facility] Address [address] [place] [address] Phone Unavailable Care Team Providers Care Communications Engineer Name Role Phone Torsten ANDERSON Attphys Unavailable VIRGIE MORAN Attphys Unavailable Christoph Bhardwaj Attphys Adriano Hinton Attphys Yanira Nichole Attphys Torsten ANDERSON Admphys Unavailable VIRGIE MORAN Admphys Unavailable Yanira Nichole Admphys Problems Condition Name Condition Details Condition Category Status Onset Date Resolution Date Last Treatment Date Treating Clinician Comments Source NEW CONSULT - RIGHT CALF WOUND NEW CONSULT - RIGHT CALF WOUND Active 07/31/2016 [facility] Diagnosis Active 2016-07-31 00:00:00 2016-08-21 10:52:00 Radha Garcias HUMERUS NONUNION TRINH MARCE NONUNION Active 09/15/2014 [facility] Diagnosis Active 2014-09-15 00:00:00 2014-09-24 0 5:20:00 Radha Garcias 719.41 719. 41 Active 09/10/2014 [facility] Active 2014-09-10 00:00:00 2014-09-14 13:51:00 Radha Garcias 719.46 - JOINT PAIN-L/LE 719. 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 [facility], SUSAN Cummings,[facility] Problem Active 2017-07-08 12:17:37 Radha Garcias Degeneration of lumbar intervertebral disc (disorder) Degeneration of lumbar intervertebral disc (disorder) Active Problem 07/08/2017 Data migrated from Feedback-Machine on 07/24/14. [facility], SUSAN Cummings,[facility] Problem Active 2017-07-08 12:17:3 7 Radha Garcias Fracture of bone (disorder) Fr acture of bone (disorder) Active Problem 07/08/2017 [facility], SUSAN Cummings Problem Active 2017-07-08 12:17:37 Vikki Garcias NONUNION OF FRACTURE NONU NION OF FRACTURE Active [facility] Diagnosis Active 2014-09-24 05:20:00 Radha Garcias Allergies, Adverse Reactions, Alerts This patient has no known allergies or adverse reactions. Social History Social Habit Start Date Stop Date Quantity Comments Source Social History 2014-09-15 04:59:00 2014-09-15 04:59:00 Radha Garcias Smoking Status Start Date Stop Date Source Social History 2014-09-24 11:01:00 Radha waddell Medications Ordered Medication Name Filled Medication Name Start Date Stop Da te Current Medication? Ordering Clinician Indication Dosage Frequency Signature (SIG) Comments Components Source Acetaminophen 325 MG / Hydrocodone Bitartrate 10 MG Or al Tablet [[place] 10/325] 2014-09-27 18:12:00 Yes 1 -2 tab, PO, Q6H, # 60 tab, 0 Refill(s), given to patient Radha Garcias docusate sodium 100 mg oral capsule 2014-09-27 18:12:00 Yes 100 mg = 1 cap, PO, BID, # 30 cap, 0 [facility] Aspir[facility] 325 MG Oral Tablet 2014-09-27 18:12:00 Yes 325 mg = 1 tab, PO, BID, # 22 tab, 0 Refill(s) Radha Garcias Benzocaine 15 MG / Menthol 3.6 MG Lozeng e [Cepacol Sore Throat Pain Relief 15/3.6] 2014-09-25 20:23:00 No Notes: Cepacol lozenges Dispense 1 box = 16 lozenges (Same As: Cepacol Lozenges) [facility] Acetaminophen 2014-09-25 17:00:00 No Notes: Do not exceed 4 gm/day. (Same as: Tylenol) [facility] morphine Sulfate 2014-09-25 14:00:00 No Notes: Do not crush (Same as:Oramorph SR, MS Contin) [facility] vy Docusate 2014-09-25 14:00:00 No Notes: (Same as: Colace) (Do Not Crush) [facility] Sodium Chloride 0.154 MEQ/ML Injectable Solution 2014-09-25 12:1 4:00 No 500 mL, 500 ml/hr, Infuse Ov er: 1 hr, Route: IV, 500, Drug form: INJ, ONCE, Priority: STAT, Dosing Weight 84.091 kg, Start date: 09/25/14 7:14:00, Duration: 1 doses or times, Stop date: 09/25/14 7:14:00 [facility] NS 1,000 mL 2014-09-25 03:26:00 No 1,000 mL, Rate: 100 ml/hr, Infuse over: 10 hr, Route: IV, Dosing Weight 84.091 kg, Total Volume: 1,000, Start date: 09/24/14 22:26:00, Duration: 30 day, Stop date: 10/24/14 22:25:00 [facility] PlasmaLyte A PH-7.4 (Bolus) IV 2014-09-25 02:35:00 No 1,000 mL, 1000 ml/hr, Route: IV, Drug Form: INJ, Dosing Weight 84.091, kg, ONCE, Start date: 09/24/14 21:35:00, Stop date: 09/24/14 21:35:00 [facility] sennosides, HALFWAY 2014-09-25 02:00:00 No Notes: (Same as: Senokot) [facility] Enoxaparin 2014-09-25 01:00:00 No Notes: (S lauro as: Lovenox) [facility] Acetaminophen 2014-09-24 23:00:00 No Notes: Infuse over 15 minutes Do not exceed 4gm/day of acetaminophen MEDICATION WASTE Product Size: 1000 mg Product Wasted: ___ mg Memoria kala [facility] Dilaudid 2014-09-24 22:17:00 No Notes: (Darrick e as: Dilaudid) [facility] morphine Sulfate 2014-09-24 22:17:00 No Notes: Do not crush (Same as:Oramorph SR, MS Contin) [facility] vy Ondansetron 2014-09-24 22:17:00 No Notes: (Same as: Zofran) MEDICATION WASTE Product Size: 4 mg Product Wasted: ___ mg [facility] tizanidine 2014-09-24 22:17:00 No Notes: (S lauro As: Zanaflex) [facility] Docusate 2014-09-24 22:00:00 No Notes: (Same as: Colace) (Do Not Crush) [facility] Cefazolin 2014-09-24 22:00:00 No Notes: (Same As: Ancef Kefzol) Cefazolin FOR IV SET ONLY MEDICATION WASTE Product Size: 1000 mg Product Wasted: ___ mg [facility] ropivacaine 2014-09-24 19:53:00 No Notes: S lauro as: Naropin [facility] Midazolam 2014-09-24 18:36:00 No 2 mg, Route: IV, ONCE, Dosing Weight 84.091, kg, Start date: 09/24/14 13:36:00, Stop date: 09/24/14 13:36:00 [facility] Ondansetron 2014-09-24 17:48:00 No Notes: (Same as: Zofran) MEDICATION WASTE Product Size: 4 mg Product Wasted: ___ mg [facility] Fentanyl 2014-09-24 17:48:00 No Notes: (Same as: Sublimaze) Preservative free. [facility] Flumazenil 2014-09-24 17:48:00 No Notes: (S lauro as: Romazicon) [facility] Morphine 2014-09-24 17:48:00 No Not es: (Same as:MORPhine Sulfate) [facility] Hydromorphone 2014-09-24 17:48:00 No Notes: Same as: Dilaudid [facility] Naloxone 2014-09-24 17:48:00 No Notes: (Darrick e as: Narcan) [facility] Oxycodone 2014-09-24 17:48:00 No Notes: (Sa me as: Roxicodone) [facility] Ondans[facility]ron 2014-09-24 17:27:00 No Notes: (Same as: Zofran) MEDICATION WASTE Product Size: 4 mg Product Wasted: ___ mg [facility] Diphenhydramine 2014-09-24 17:27:00 No Notes: (Same as: Benadryl) [facility] Morphine 2014-09-21 14:14:00 No 30 mg, PO, BID, 0 Refill(s) [facility] Dietre diazepam 10 mg oral tablet 2014-09-21 14:14:00 No 10 mg = 1 tab, PO, BID, # 60 tab, 0 Refill(s) [facility] Sathya mcclellan Hydromorphone 2014-09-21 14:14:00 No 4 mg, PO, Q4H, 0 Refill(s) [facility] tizanidine 2 mg oral capsule 2014-09-21 14:14:00 No 2 mg = 1 cap, PO, Q8H, 0 Refill(s) [facility] Vital Signs Vital Name Observation Time Observation Value Comments Source Weight 2016-08-16 22:02:00 [facility] Height 2016-08-16 22:02:[address] [facility] BMI Calculated 2016-08-16 22:02:00 Memori al [facility] Systolic (mm Hg) 2014-09-27 16:29:00 Pj rial [facility] Diastolic (mm Hg) 2014-09-27 16:29:00 Mem orial [facility] Heart Rate 2014-09-27 16:29:00 [facility] Respitory Rate 2014-09-27 16:29:00 Memori al [facility] Temperature Oral (F) 2014-09-27 16:29:00 98.9 F [facility] Temperature Oral (F) 2014-09-27 13:23:[address] [facility] Heart Rate 2014-09-27 13:23:00 [facility] Respitory Rate 2014-09-27 13:23:00 Memori al Dieter Systolic (mm Hg) 2014-09-27 13:23:00 Pj rial Winfred Diastolic (mm Hg) 2014-09-27 13:23:00 Mem orial Dieter Systolic (mm Hg) 2014-09-27 09:32:00 Pjgena foote Dieter Diastolic (mm Hg) 2014-09-27 09:32:00 Mem orial [facility] Respitory Rate 2014-09-27 09:32:00 Bela Johnson Temperature Oral (F) 2014-09-27 09:32:00 98.4 F [facility] Heart Rate 2014-09-27 09:32:00 [facility] BMI Calculated 2014-09-21 18:42:00 Memmitali deluca Di[facility] Weight 2014-09-21 18:42:00 [facility] Height 2014-09-21 18:42:00 172.72 cm [facility] Procedures Procedure Date / Time Performed Performing Clinician [facility] e Operation [facility] Encounters Start Date/Time End Date/Time Encounter Type Admission Type [facility] Care Department Encounter ID Source 2019-08-29 03:54:00 2019-08-29 01:17:00 Inpatient E [id number] 2018-12-02 06:21:00 2018-12-02 06:21:00 Outpatient MHFB BENNY [id number] [facility] 2017-07-05 13:55:00 2017-07-05 23:59:00 Outpatient [facility] [id number] 2017-07-05 13:55:00 2017-07-05 23:59:00 Outpatient [facility] [id number] 2016-08-16 12:25:00 2016-09-14 23:59:00 Outpatient Alexis Hinton [facility] [id number] 2014-09-24 05:20:00 2014-09-27 15:10:00 Outpatient Dayanara, And jared Doyle [facility] [id number] 2014-09-14 13:44:00 2014-09-14 23:59:00 Out[facility] Dayanara[facility] [id number] Results Test Description Test Time Test Comments Results Result Comments Source CHEST SINGLE (PORTABLE) 2019-12-27 09:29:[address] [facility] CENTERName: FLEX ESPINOSA : 1955 Sex: F [facility] [address] [address] Patient Name: FLEX ESPINOSA MR #: [id number] : 1955 Age/Sex: 64/F Req #: [id number] Adm Physician: JAKE ANDERSON MD Ordered by: JAKE ANDERSON MD Report #: [id number] Location: [place] [address] Room/Bed: [facility] Procedure: [id number] DX/CHEST SINGLE (PORTABLE) Exam Date: 12/27/19 Exam Time: 0550 REPORT STATUS: Signed EXAMINATION: CHEST SINGLE (PORTABLE) INDICATION: Shortness of breath and weakness. COMPARISON: Chest CT on 09/10/2019. FINDINGS: TUBES and LINES: None. LUNGS: Normal lung volumes. There is pulmonary vessel congestion without mich edema there is patchy opacification of the right infrahilar region. PLEURA: The left costophrenic sulcus is excluded from [id number]. No Pneumothorax. HEART AND MEDIASTINUM: The cardiomediastinal silhouette is mildly enlarged. There are atherosclerotic calcifications within the aorta. BONES AND SOFT TISSUES: No acute osseous lesion. Soft tissues are unremarkable. UPPER ABDOMEN: No free air under the diaphragm. IMPRESSION: 1. Patchy opacification of the right infrahilar region which may represent atelectasis and/or right lower lobe pneumonia in the proper clinical context. 2. Cardiomegaly with pulmonary vascular congestion. No mich pulmonary edema. Signed by: Mable Pierre MD on 12/27/2019 10:00 AM Dictated By: MABLE PIERRE MD 1000 Transcribed By: JEFF on 12/27/19 1000 COPY TO: JAKE ANDERSON MD CT BRAIN WO 2019-12-25 19:45:[address] [facility] CENTERName: FLEX ESPINOSA : 1955 Sex: F [place] [address] Patient Name: FLEX ESPINOSA MR #: [id number] : 1955 Age/Sex: 64/F Req #: [id number] Adm Physician: Ordered by: JENNIFER ESTRADA MD Report #: [id number] Location: ER Room/Bed: Procedure: [id number] CT/CT BRAIN WO Exam Date: Exam Time: REPORT STATUS: Signed History: Confusion Comparison studies: None Technique: Axial images were obtained from the skull base to the vertex. Coronal and sagittal reconstructions obtained from the axial data. Dose modulation, iterative reconstruction, and/or weight based adjustment of the mA/kV was utilized to reduce the radiation dose to as low as reasonably achievable. Intravenous contrast: None Findings: Scalp/skull: No abnormalities. No fractures, blastic or lytic lesions. Extra-axial spaces: No masses. No fluid collections. Brain sulci: Appropriate for age. Ventricles: Normal in size and configuration. No hydrocephalus. Parenchyma: No abnormal densities. No masses, hemorrhage, acute or chronic cortical vascular insults. Sellar/suprasellar region: No abnormalities Craniocervical junction: Patent foramen magnum. No Chiari one malformation. Incidental findings: None. IMPRESSION: No abnormalities. No changes when compared to the head CT on 09/09/2019 Signed by: Dr. Tanvir Portillo M.D. on 12/25/2019 7:47 PM Dictated By: TANVIR KIM MD, MD 46 Transcribed By: JEFF on 12/25/191946 COPY TO: JENNIFER ESTRADA MD GUIDED PARACENTESIS 2019-09-11 13:59:00 [place] [address] Patient Name: FLEX ESPINOSA MR #: [id number] : 1955 Age/Sex: 64/F Req #: [id number] Adm Physician: VIRGIE MORAN MD Ordered by: VIRGIE MORAN MD Report #: [id number] Location: MED/SURG2 Room/Bed: [facility] Procedure: [id number] US/US GUIDED PARACENTESIS Exam Date: 09/11/19 Exam Time: 1321 REPORT STATUS: Signed Procedure: Ultrasound-guided paracentesis tower hoist operator: Robe Wolf MD Pre-operative diagnosis: Ascites Post-operative diagnosis: Ascites Conscious Sedation: None. The patient's heart rate and pulse oximetry were continuously monitored by the IR nurse. Additional Medications: Lidocaine 1% for local anesthesia Estimated blood loss: Less than 1 cc. Specimen: 700 cc of clear yellow fluid Implants: None TECHNIQUE/FINDINGS: Informed consent was obtained from the patient and documented in the medical record. The patient was placed in the supine position. Initial ultrasound demonstrated small volume of ascites. The left lower abdomen was prepped and draped in standard sterile fashion. 1% lidocaine was infiltrated into the skin and subcutaneous tissues for local anesthesia. Then under continuous sonographic guidance, a 5 Fr catheter was advanced into the peritoneal space. The catheter was connected to vacuum bottle with subsequent evacuation of 700 cc of serous fluid. The catheter was removed and sterile dressing was applied. Sample was sent to the lab. The patient tolerated the procedure well. IMPRESSION: Successful ultrasound-guided paracentesis. Signed by: Dr. Robe Wolf MD on 09/11/2019 2:00 PM Dictated By: ROBE WOLF MD 1400 Transcribed By: JEFF on 09/11/19 1400 COPY TO: VIRGIE MORAN MD CT CHEST W 2019-09-10 12:33:00 [place] [address] Patient Name: FLEX ESPINOSA MR #: [id number] : 1955 Age/Sex: 64/F Req #: [id number] Adm Physician: VIRGIE MORAN MD Ordered by: VIRGIE MORAN MD Report #: [id number] Location: [facility] Room/Bed: [place] [address] Procedure: [id number] CT/CT CHEST W Exam Date: 09/10/19 Exam Time: 1208 REPORT STATUS: Signed CT of the chest, abdomen, and pelvis, with contrast. History: Shortness of breath, abnormal chest x-ray. Comparison: Chest radiograph from 09/09/2019. Technique: Multidetector CT scanning of the abdomen and pelvis was performed from the level of the lung b ases to the inferior pubic rami after intravenous administration of contrast. Coronal and sagittal multiplanar reformations were obtained. RADIATION DOSE: Total DLP: 897.86 mGy*cm Dose modulation, iterative reconstruction, and/or weight based adjustment of the mA/kV was utilized to reduce the radiation dose to as low as reasonably achievable. FINDINGS: The thyroid and remaining visualized structures within the base of the neck demonstrate no significant abnormalities. The thoracic aorta is normal course and caliber. The heart is not enlarged. There is no abnormal pericardial fluid present. There is no abnormal activity, mediastinal, or hilar lymph node enlargement. The trachea and proximal airways are patent. There is a trace right pleural effusion present with associated compressive atelectasis of the right lung base. A calcified granuloma is noted within the right lower lobe. Examination of the lungs otherwise demonstrates no evidence for consolidation, pneumothorax, mass, or suspicious nodule. There is a small volume of abdominopelvic ascites, most prominent within the perihepatic/perisplenic regions. The liver is decreased in size and demonstrates a nodular contour suggestive of cirrhosis. No focal hepatic abnormality is identified on this single phase examination. The gallbladder is surgically absent. There is no intrahepatic biliary ductal dilatation. There is minimal prominence of the common bile duct measuring up to 8 mm in caliber likely reflecting post cholecystectomy status. The spleen is enlarged. The pancreas and bilateral adrenal glands are unremarkable. The kidneys are normal in size and enhance symmetrically. There is no evidence for nephrolithiasis or hydronephrosis. No ureteral stone or dilatation is appreciated. The urinary bladder demonstrates no significant abnormalities. The uterus is surgically absent. No abnormal adnexal masses are identified. The abdominal aorta is normal in caliber. The IVC is unremarkable. The main portal vein is prominent measuring up to 2.4 cm in maximal caliber. Multiple collateral vessels are identified within the upper abdomen. Prominent paraesophageal varices noted. The portal venous system, splenic vein, and SMV are patent. There is mild wall thickening of the stomach and loops of small and large bowel likely reflecting portal hypertensive gastropathy/enteropathy. The visualized loops of small and large bowel otherwise demonstrate no evidence of obstruction or inflammation. Scattered diverticula are noted with in the sigmoid colon without evidence for acute diverticulitis. There is no intraperitoneal free air. No abnormally enlarged lymph nodes are identified within the abdomen or pelvis. Multiple surgical clips are noted along the anterior abdominal wall likely reflecting prior hernia repair. Multiple remote/healed left posterior lateral rib fractures are noted. There is dextroscoliosis of the thoracolumbar spine with multilevel degenerative changes. There is no evidence for acute fracture or destructive process. Body wall edema noted.. IMPRESSION: 1. CT findings suggestive of cirrhosis and sequela of portal hypertension including prominent portal vein, paraesophageal varices, splenomegaly, and small volume of ascites. 2. Mild wall thickening noted of the stomach and loops of bowel which is favored to be secondary to portal hypertensive gastropathy/enteropathy. No evidence for bowel obstruction. 3. Trace right pleural effusion. Signed by: Dr. Robe Wolf MD on 09/10/2019 12:48 PM Dictated By: ROBE WOLF MD 1248 Transcribed By: JEFF on 09/10/19 1248 COPY TO: VIRGIE MORAN MD CT ABDOMEN/PELVIS W 2019-09-10 12:33:00 [place] [address] Patient Name: FLEX ESPINOSA MR #: [id number] : 1955 Age/Sex: 64/F Req #: [id number] Adm Physician: VIRGIE MORAN MD Ordered by: VIRGIE MORAN MD Report #: [id number] Location: [facility] Room/Bed: [place] [address] Procedure: [id number] CT/CT ABDOMEN/PELVIS W Exam Date: 09/10/19 Exam Time: 1208 REPORT STATUS: Signed CT of the chest, abdomen, and pelvis, with contrast. History: Shortness of breath, abnormal chest x-ray. Comparison: Chest radiograph from 09/09/2019. Technique: Multidetector CT scanning of the abdomen and pelvis was performed from the level of the lung bases to the inferior pubic rami after intravenous administration of contrast. Coronal and sagittal multiplanar reformations were obtained. RADIATION DOSE: Total DLP: 897.86 mGy*cm Dose modulation, iterative reconstruction, and/or weight based adjustment of the mA/kV was utilized to reduce the radiation dose to as low as reasonably achievable. FINDINGS: The thyroid and remaining visualized structures within the base of the neck demonstrate no significant abnormalities. The thoracic aorta is normal course and caliber. The heart is not enlarged. There is no abnormal pericardial fluid present. There is no abnormal activity, mediastinal, or hilar lymph node enlargement. The trachea and proximal airways are patent. There is a trace right pleural effusion present with associated compressive atelectasis of the right lung base. A calcified granuloma is noted within the right lower lobe. Examination of the lungs otherwise demonstrates no evidence for consolidation, pneumothorax, mass, or suspicious nodule. There is a small volume of abdominopelvic ascites, most prominent within the perihepatic/perisplenic regions. The liver is decreased in size and demonstrates a nodular contour suggestive of cirrhosis. No focal hepatic abnormality is identified on this single phase examination. The gallbladder is surgically absent. There is no intrahepatic biliary ductal dilatation. There is minimal prominence of the common bile duct measuring up to 8 mm in caliber likely reflecting post cholecystectomy status. The spleen is enlarged. The pancreas and bilateral adrenal glands are unremarkable. The kidneys are normal in size and enhance symmetrically. There is no evidence for nephrolithiasis or hydronephrosis. No ureteral stone or dilatation is appreciated. The urinary bladder demonstrates no significant abnormalities. The uterus is surgically absent. No abnormal adnexal masses are identified. The abdominal aorta is normal in caliber. The IVC is unremarkable. The main portal vein is prominent measuring up to 2.4 cm in maximal caliber. Multiple collateral vessels are identified within the upper abdomen. Prominent paraesophageal varices noted. The portal venous system, splenic vein, and SMV are patent. There is mild wall thickening of the stomach and loops of small and large bowel likely reflecting portal hypertensive gastropathy/enteropathy. The visualized loops of small and large bowel otherwise demonstrate no evidence of obstruction or inflammation. Scattered diverticula are noted within the sigmoid colon without evidence for acute diverticulitis. There is no intraperitoneal free air. No abnormally enlarged lymph nodes are identified within the abdomen or pelvis. Multiple surgical clips are noted along the anterior abdominal wall likely reflecting prior hernia repair. Multiple remote/healed left posterior lateral rib fractures are noted. There is dextroscoliosis of the thoracolumbar spine with multilevel degenerative changes. There is no evidence for acute fracture or destructive process. Body wall edema noted.. IMPRESSION: 1. CT findings suggestive of cirrhosis and sequela of portal hypertension including prominent portal vein, paraesophageal varices, splenomegaly, and small volume of ascites. 2. Mild wall thickening noted of the stomach and loops of bowel which is favored to be secondary to portal hypertensive gastropathy/enteropathy. No evidence for bowel obstruction. 3. Trace right pleural effusion. Signed by: Dr. Robe Wolf MD on 09/10/2019 12:48 PM Dictated By: ROBE WOLF MD 1248 Transcribed By: JEFF on 09/10/19 1248 COPY TO: VIRGIE MORAN MD CHEST SINGLE (PORTABLE) 2019-09-09 17:38:00 [place] [address] Patient Name: FLEX ESPINOSA MR #: [id number] : 1955 Age/Sex: 64/F Req #: [id number] Adm Physician: Ordered by: ELISE MORALES MD Report #: [id number] Location: ER Room/Bed: Procedure: [id number] DX/CHEST SINGLE (PORTABLE) Exam Date: 09/09/19 Exam Time: 1700 REPORT STATUS: Signed EXAMINATION: CHEST SINGLE (PORTABLE) INDICATION: Altered mental status. COMPARISON: None FINDINGS: TUBES and LINES: None. LUNGS: There are hazy opacification of the bilateral lung bases. PLEURA: No pleural effusion or pneumothorax. HEART AND MEDIASTINUM: The cardiomediastinal silhouette is unremarkable. BONES AND SOFT TISSUES: No acute osseous lesion. Soft tissues are unremarkable. UPPER ABDOMEN: No free air under the diaphragm. IMPRESSION: Hazy opacification of bilateral lung bases which may represent atelectasis and/or multifocal pneumonia in the proper clinical setting. Signed by: Mable Pierre MD on 09/09/2019 5:39 PM Dictated By: MABLE PIERRE MD 38 Transcribed By: JEFF on 09/09/191738 COPY TO: ELISE MORALES MD CT BRAIN WO 2019-09-09 17:25:00 [place] [id number] Patient Name: FLEX ESPINOSA MR #: [id number] : 1955 Age/Sex: 64/F Req #: [id number] Adm Physician: Ordered by: ELISE MORALES MD Report #: [id number] Location: ER Room/Bed: Procedure: [id number] CT/CT BRAIN WO Exam Date: 09/09/19 Exam Time: 1700 REPORT STATUS: Signed Examination: CT BRAIN WO WITHOUT CONTRAST History:Altered mental status. Comparison studies:The images of prior head CT dated 2012 are not available for comparison. Technique: Axial images were obtained from the skull base to the vertex. Coronal and sagittal images reconstructed from the axial data. Dose modulation, iterative reconstruction, and/or weight based adjustment of the mA/kV was utilized to reduce the radiation dose to as low as reasonably achievable. Intravenous contrast: None Findings: Scalp: No abnormalities. Bones: No fractures, blastic or lytic lesions. Brain sulci: Appropriate for age. Ventricles: Normal in size and configuration. No hydrocephalus. Extra-axial space: No abnormalities. Parenchyma: No masses, hemorrhage, or acute or chronic cortical based vascular insults.. Sellar/suprasellar region: No abnormalities. Craniocervical junction: Patent foramen magnum. No Chiari one malformation. Impression: No acute intracranial abnormalities. Signed by: Dr. Aidan Be M.D. on 09/09/2019 5:30 PM Dictated By: AIDAN DAMON MD 173 Transcribed By: JEFF on 09/09/191729 COPY TO: ELISE MORALES MD CHEM PANEL 2014-09-27 08:40:00 1.7 [facility] ELECTROLYTES 2014-09-27 08:40:00 10.7 [facility] ELECTROLYTES 2014-09-27 08:40:00 80 [facility] ELECTROLYTES 2014-09-27 08:40:00 8.3 [facility] ELECTROLYTES 2014-09-27 08:40:00 0.8 [facility] ELECTROLYTES 2014-09-27 08:40:00 108 [facility] ELECTROLYTES 2014-09-27 08:40:00 29 [facility] ELECTROLYTES 2014-09-27 08:40:00 144 [facility] ELECTROLYTES 2014-09-27 08:40:00 3.7 [facility] ELECTROLYTES 2014-09-27 08:40:00 3 [facility] ELECTROLYTES 2014-09-27 08:40:00 99 [facility] HEMATOLOGY 2014-09-27 08:40:00 116 [facility] HEMATOLOGY 2014-09-27 08:40:00 8.5 [facility] HEMATOLOGY 2014-09-27 08:40:00 13.2 [facility] HEMATOLOGY 2014-09-27 08:40:00 Test Item MCH (test code = MCH) 31.0 pg 27.0-31.0 [facility] KpyjircSZBVRZCKAQ9721-32-35 08:40:0033.4[facility]annHEMATOLOGY 2014-09-27 08:40:0093.1[facility] SpodhxcRXDEXHRVAH5421-17-61 08:40:0025.1[facility] IthtgetKJBCKLOPDB4697-56-21 08:40:008.4[facility] OrrrgdzVVYEZIIYHB1854-91-08 08:40:002.70[facility] MgxhrwaFGFPTBWJHP7495-88-23 08:40:005.5[facility] YDMWXXDDVV5064-25-00 08:40:0010.1[facility] JdoqvrsOOPNMDFQYG9371-69-69 08:40:00 46.8[facility] SjdccjgKMYFZVEJDF6805-11-78 08:40:0040.4[facility]annHEMATOLOGY 2014-09-27 08:40:000.1[facility] KexnfekIROODXJNKG9555-58-15 08:40:002.2[facility] YmnvtjvVUZFUXJNVK7193-65-87 08:40:000.6[facility] WolzjatWJSLDOQTSP3060-02-42 08:40:000.8[facility] EyeomhvBWIQMSWABA1148-66-31 08:40:002.6[facility] XZGZIMODWJ4139-35-99 08:40:001.9[facility] HermannCHEM JVZBG0254-95-99 09:10:0035 [facility]annCHEM RBSXR3415-87-91 09:10:005.3[facility]annCHEM PANEL 2014-09-26 09:10:002.4[facility]annCHEM MQHOP6882-84-19 09:10:000.5[facility]annCHEM AVGZA2849-78-78 09:10:000.1[facility]annCHEM FXZFA3216-57-72 09:10:0032[facility]annCHEM DCFOK8992-31-46 09:10:0067[facility]annCHEM GJRKQ0472-34-57 09:10:000.8[facility]annCHEM LIMKW5555-04-68 09:10:000.4 [facility]annCHEM VENPQ2574-12-62 09:10:002.9[facility]annCHEM PANEL 2014-09-26 09:10:001.6[facility] JbvxleuTCQJNDLSOMEY5341-43-93 09:10:009.8[facility] AxkfzvbNSHHWLAZCPHL2841-35-77 09:10:0094[facility] WndokvaDWLWDMECMGCZ0560-45-71 09:10:0029[facility] QydwookIQDYKWQWUBEH6156-02-15 09:10:008.2[facility] LSEBYCFJGOHT3049-12-72 09:10:000.7[facility] OimetaoGUUJOVBBICGM2006-44-17 09:10:003.8[facility] DvozbzcTNCRDFWDOOCD1034-13-20 09:10:004[facility] LQPVORIODUYB2646-80-20 09:10:0096[facility] TtlbfzbIGYGSEEABFXJ9948-61-11 09:10:00 109[facility] HebxdlnEYQKRSKWOPIB7571-79-75 09:10:52749Thbuapwl HermannHEMATOLOGY 2014-09-26 09:10:00* Test Item Value Reference Range Interpretation Comments MCH (test code = MCH) 30.8 pg 27.0-31.0 [facility] UsgcvzmTBLLTMFVOL2602-97-13 09:10:0033.1[facility]annHEMATOLOGY 2014-09-26 09:10:0024.5[facility] LwvzkduYQQQNERUKG0736-60-91 09:10:0092.9[facility] CaflzenHEYUYSXOPY4804-82-55 09:10:008.1[facility] OpfevvlRQATQUGQHG7157-92-55 09:10:008.7[facility] UpjucosKMIBBZFKTQ4537-21-74 09:10:57639Cmiwfvbp [facility] RKHDQSTMES8673-44-68 09:10:0013.6[facility] PoshzccWQPACOCAZT5674-77-10 09:10:00 5.7[facility] RlvbvluKPQGOPODZK1614-13-07 09:10:002.64[facility]annHEMATOLOGY 2014-09-26 09:10:000.6[facility] CzizorhZSFPKGONUQ5954-33-63 09:10:000.6[facility] VikkuayKLTVSPJZPV4988-64-10 09:10:001.9[facility] KqyiqueKGZVVCDPIQ1647-74-11 09:10:003.1[facility] WciqbfqLTQCSEFADB3850-97-19 09:10:000.8[facility] ZQYRMOLNJD6389-19-25 09:10:0011.1[facility] UlxflvfMTESFRDUPZ2308-32-24 09:10:00 33.6[facility] WkqihrwHUIITRMMET4003-27-76 09:10:0053.9[facility] HermannCHEM PANEL 2014-09-25 08:34:0080[facility]annCHEM DYABM5104-15-47 08:34:38988Axwenfny HermannCHEM XFZTP3808-01-47 08:34:59061Hljrjrby HermannCHEM DBWNN2017-15-90 08:34:0026[facility]annCHEM BVBQX5274-37-54 08:34:004.1[facility]annCHEM CQNYT3407-65-62 08:34:0013.1[facility]annCHEM GJYTL1245-25-55 08:34:008.0 [facility]annCHEM MTTRS8694-48-56 08:34:006[facility]annCHEM PANEL 2014-09-25 08:34:000.8[facility] HermannCHEM UHRZI9014-93-91 08:34:37459Dprhbubk OhkksbvQMUSSFXNWC9261-16-70 08:34:0034.2[facility] OihmhtsOWGIPLZGWG7399-21-85 08:34:0012.8[facility] WscrnphLXJVJGLEMO6164-28-87 08:34:0090.6[facility] VOBDBTVHJL5111-73-82 08:34:00* Test Item Value Reference Range Interpretation Comments MCH (test code = MCH) 31.0 pg 27.0-31.0 [facility] OrfueycEXICDEJEZM5414-93-26 08:34:28992Cvrzpaim HermannHEMATOLOGY 2014-09-25 08:34:002.84[facility] FftvzsvRYXKHJCJVB5052-08-92 08:34:008.8[facility] WafrwzqWFVHLFQPDD4080-25-99 08:34:007.9[facility] FecmqguGEFBIIGZII2513-80-81 08:34:0025.7[facility] IrvhizrDQGEJBQQVI8110-69-29 08:34:008.4[facility] LXTGLQGKLS7737-62-81 08:34:000.8[facility] GjrvxwvQFULXOEDXY5397-36-18 08:34:005.5 [facility] ZpaesrtEQOMGHMYFM6136-48-95 08:34:001.6[facility] HermannHEMATOLOGY 2014-09-25 08:34:000.2[facility] HmgfhqeQGIYYAIPXG6801-43-63 08:34:009.6[facility] UoptchfDKOBSTJBZM6371-80-02 08:34:000.1[facility] WerycllNSSZUJFEPB1504-03-38 08:34:0020.8[facility] OfimhalFXFDAEMMLW5394-48-33 08:34:0069.3[facility] URINE AND MPIMR3813-06-27 08:15:00Light Yellow *NA*(09/25/14 3:15 AM)[facility]ann[facility] AND MMDBV9370-94-06 08:15:00Clear (09/25/14 3:15 AM)[facility] URINE AND UYJBK0504-58-67 08:15:001[facility]annUR[facility] AND VHRNM8741-19-45 08:15:00<1[facility] AND WXLQI1456-16-51 08:15:00Negative (09/25/14 3:15 AM)[facility] WXJUP2057-41-50 08:15:00Negative (09/25/14 3:15 AM)[facility] HXDHC9650-70-47 08:15:001.007[facility] AND CDFMF3444-57-78 08:15:00Small *ABN*(09/25/14 3:15 AM)[facility] KWSZX5026-63-79 08:15:00Negative *NA*(09/25/14 3:15 AM)[facility] SRBUF2309-03-50 08:15:005.0[facility]annCHEM BDBTK0253-30-37 22:41:0023 [facility]annCHEM SNVRX4911-75-23 22:41:003.2[facility]annCHEM PANEL 2014-09-24 22:41:001.6[facility] UvrjmosWTMONALJCE7847-93-27 22:41:00Normal (09/24/14 5:41 PM)[facility] GutxykrCZDBEDTWDN5932-14-59 22:41:00Clumped (09/24/14 5:41 PM)[facility] HermannPARATHYROID OTIGQGG1993-12-17 22:41:0058.6[facility] HermannPARATHYROID KVJDYPV5117-48-69 22:41:001.08[facility] HermannPARATHYROID WBZDVVJ1048-97-34 22:41:001.12[facility]
--- OUTSIDE RECORDS SUMMARY | 2019-12-31 18:16 | XMS REPORT | Continuity of Care Document ---
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 41 Active 09/10/2014 [facility] Active 2014-09-10 00:00:00 2014-09-14 13:51:00 Radha Garcias 719.46 - JOINT PAIN-L/LE 719. 46 - JOINT PAIN-L/LE Active 04/06/2014 SUSAN Garcias Diagnosis Active 2014-04-06 00:01:00 2014-05-23 08:29:00 Radha Garcias Chronic pain (finding) [place] [employer] Helper chris pain (finding) Active Problem 07/08/2017 [facility], OPID [place] Problem Active 2017-07-08 12:17:37 Radha Garcias Chronic pain syndrome (disorder) Chronic pain syndrome (disorder) Active Problem 07/08/2017 Data migrated from [email or web address] on 07/24/14. [facility], SUSAN [place],[facility] Problem Active 2017-07-08 12:17:37 Radha Garcias Degeneration of lumbar intervertebral disc (disorder) Degeneration of lumbar intervertebral disc (disorder) Active Problem 07/08/2017 Data migrated from [email or web address] on 07/24/14. [facility], SUSAN Cumm[place],[facility] Problem Active 2017-07-08 12:17:3 7 Radha Garcias Fracture of bone (disorder) Fr acture of bone (disorder) Active Problem 07/08/2017 [facility], SUSAN [place] Problem Active 2017-07-08 12:17:37 Vikki Garcias NONUNION OF FRACTURE NONU NION OF FRACTURE Active [facility] Diagnosis Active 2014-09-24 05:20:00 Radha Garcias Allergies, [...] Hydrocodone Bitartrate 10 MG Or al Tablet [[place] 10/325] 2014-09-27 18:12:00 Yes 1 -2 tab, PO, Q6H, # 60 tab, 0 Refill(s), given to patient Radha Garcias docusate sodium 100 mg oral capsule 2014-09-27 18:12:00 Yes 100 mg = 1 cap, PO, BID, # 30 cap, 0 [facility] Aspirin 325 MG Oral Tablet 2014-09-27 18:12:00 Yes 325 mg = 1 tab, PO, BID, # 22 tab, 0 Refill(s) Radha Garcias Benzocaine 15 MG / Menthol 3.6 MG Lozeng e [Cepacol Sore Throat Pain Relief 15/3.6] 2014-09-25 20:23:00 No Notes: Cepacol lozenges Dispense 1 box = 16 lozenges (Same As: Cepacol Lozenges) [facility] Acetaminophen 2014-09-25 17:00:00 No Notes: Do not exceed 4 gm/day. (Same as: Tylenol) [facility] morphine Sulfate 2014-09-25 14:00:00 No Notes: Do not crush (Same as:Oramorph SR, MS Contin) [facility] vy Docusate 2014-09-25 14:00:00 No Notes: (Same as: Colace) (Do Not Crush) [facility] Sodium Chloride 0.154 MEQ/ML Injectable Solution 2014-09-25 12:1 4:00 No 500 mL, 500 ml/hr, Infuse Ov er: 1 hr, Route: IV, 500, Drug form: INJ, ONCE, Priority: STAT, Dosing Weight 84.091 kg, Start date: 09/25/14 7:14:00, Duration: 1 doses or times, Stop date: 09/25/14 7:14:00 [facility] NS 1,000 mL 2014-09-25 03:26:00 No 1,000 mL, Rate: 100 ml/hr, Infuse over: 10 hr, Route: IV, Dosing Weight 84.091 kg, Total Volume: 1,000, Start date: 09/24/14 22:26:00, Duration: 30 day, Stop date: 10/24/14 22:25:00 [facility] PlasmaLyte A PH-7.4 (Bolus) IV 2014-09-25 02:35:00 No 1,000 mL, 1000 ml/hr, Route: IV, Drug Form: INJ, Dosing Weight 84.091, kg, ONCE, Start date: 09/24/14 21:35:00, Stop date: 09/24/14 21:35:00 [facility] sennosides, RETIREMENT 2014-09-25 02:00:00 No Notes: (Same as: Senokot) [facility] Enoxaparin 2014-09-25 01:00:00 No Notes: (S lauro as: Lovenox) [facility] Acetaminophen 2014-09-24 23:00:00 No Notes: Infuse over 15 minutes Do not exceed 4gm/day of acetaminophen MEDICATION WASTE Product Size: 1000 mg Product Wasted: ___ mg Memoria kaal [facility] Dilaudid 2014-09-24 22:17:00 No Notes: (Darrick e as: Dilaudid) [facility] morphine Sulfate 2014-09-24 22:17:00 No Notes: Do not crush (Same as:Oramorph SR, MS Contin) [facility] vy Ondansetron 2014-09-24 22:17:00 No Notes: (Same as: Zofran) MEDICATION WASTE Product Size: 4 mg Product Wasted: ___ mg [facility] tizanidine 2014-09-24 22:17:00 No Notes: (S lauro As: Zanaflex) [facility] Docusate 2014-09-24 22:00:00 No Notes: (Same as: Colace) (Do Not Crush) [facility] Cefazolin 2014-09-24 22:00:00 No Notes: (Same As: Ancef Kefzol) Cefazolin FOR IV SET ONLY MEDICATION WASTE Product Size: 1000 mg Product Wasted: ___ mg [facility] ropivacaine 2014-09-24 19:53:00 No Notes: S lauro as: Naropin [facility] Midazolam 2014-09-24 18:36:00 No 2 mg, Route: IV, ONCE, Dosing Weight 84.091, kg, Start date: 09/24/14 13:36:00, Stop date: 09/24/14 13:36:00 [facility] Ondansetron 2014-09-24 17:48:00 No Notes: (Same as: Zofran) MEDICATION WASTE Product Size: 4 mg Product Wasted: ___ mg [facility] Fentanyl 2014-09-24 17:48:00 No Notes: (Same as: Sublimaze) Preservative free. [facility] Flumazenil 2014-09-24 17:48:00 No Notes: (S lauro as: Romazicon) [facility] Morphine 2014-09-24 17:48:00 No Not es: (Same as:MORPhine Sulfate) [facility] Hydromorphone 2014-09-24 17:48:00 No Notes: Same as: Dilaudid [facility] Naloxone 2014-09-24 17:48:00 No Notes: (Darrick e as: Narcan) [facility] Oxycodone 2014-09-24 17:48:00 No Notes: (Sa me as: Roxicodone) [facility] Ond[facility] 2014-09-24 17:27:00 No Notes: (Same as: Zofran) MEDICATION WASTE Product Size: 4 mg Product Wasted: ___ mg [facility] Diphenhydramine 2014-09-24 17:27:00 No Notes: (Same as: Benadryl) [facility] [address] Morphine 2014-09-21 14:14:00 No 30 mg, PO, BID, 0 Refill(s) [facility] [address] diazepam 10 mg oral tablet 2014-09-21 14:14:00 No 10 mg = 1 tab, PO, BID, # 60 tab, 0 Refill(s) [facility] Sathya mcclellan Hydromorphone 2014-09-21 14:14:00 No 4 mg, PO, Q4H, 0 Refill(s) [facility] [address] tizanidine 2 mg oral capsule 2014-09-21 14:14:00 No 2 mg = 1 cap, PO, Q8H, 0 Refill(s) [facility] Vital Signs Vital Name Observation Time Observation Value Comments Source Weight 2016-08-16 22:02:00 [facility] Height 2016-08-16 22:02:00 172.72 cm [facility] BMI Calculated 2016-08-16 22:02:00 Memori al [facility] Systolic (mm Hg) 2014-09-27 16:29:00 Pj rial [facility] Diastolic (mm Hg) 2014-09-27 16:29:00 Mem orial [facility] Heart Rate 2014-09-27 16:29:00 [facility] Respitory Rate 2014-09-27 16:29:00 Memori al [facility] Temperature Oral (F) 2014-09-27 16:29:00 98.9 F [facility] Temperature Oral (F) 2014-09-27 13:23:00 98.7 F [facility] Heart Rate 2014-09-27 13:23:00 [facility] Respitory Rate 2014-09-27 13:23:00 Memori al [facility] Systolic (mm Hg) 2014-09-27 13:23:00 Pj rial [facility]olson Diastolic (mm Hg) 2014-09-27 13:23:00 Mem orial [facility]eter Systolic (mm Hg) 2014-09-27 09:32:00 Pjgena foote Dieter Diastolic (mm Hg) 2014-09-27 09:32:00 Mem orial [facility] Respitory Rate 2014-09-27 09:32:00 Bela Johnson Temperature Oral (F) 2014-09-27 09:32:00 98.4 F [facility] Heart Rate 2014-09-27 09:32:00 [facility] BMI Calculated 2014-09-21 18:42:00 Memmitali deluca Di[facility] Weight 2014-09-21 18:42:00 [facility] Height 2014-09-21 18:42:00 172.72 cm [facility] Procedures Procedure Date / Time Performed Performing Clinician [facility] Operation [facility] Encounters Start Date/Time End Date/Time Encounter Type Admission Type [facility] Department Encounter ID Source 2019-08-29 03:54:00 2019-08-29 01:17:00 Inpatient E [id number] 2018-12-02 06:21:00 2018-12-02 06:21:00 Outpatient MHFB BENNY [id number] [facility] 2017-07-05 13:55:00 2017-07-05 23:59:00 [facility] [id number] 2017-07-05 13:55:00 2017-07-05 23:59:00 [facility] Rocky R[facility] [id number] 2016-08-16 12:25:00 2016-09-14 23:59:00 Outpatient Alexis Hinton [facility] [id number] 2014-09-24 05:20:00 2014-09-27 15:10:00 Outpatient Dayanara, And jared Doyle [facility] [id number] 2014-09-14 13:44:00 2014-09-14 23:59:00 [facility] [id number] Results Test Description Test Time Test Comments Results Result Comments Source CHEST SINGLE (PORTABLE) 2019-12-27 09:29:00 [facility] : 1955 Sex: F [facility] [address] [address] Patient Name: FLEX ESPINOSA MR #: [id number] : 1955 Age/Sex: 64/F Req #: [id number] Adm Physician: JAKE ANDERSON MD Ordered by: JAKE ANDERSON MD Report #: [id number] Location: [place] [address] Room/Bed: [facility] Procedure: [id number] DX/CHEST SINGLE (PORTABLE) Exam Date: 12/27/19 Exam Time: 0550 REPORT STATUS: Signed EXAMINATION: CHEST SINGLE (PORTABLE) INDICATION: Shortness of breath and weakness. COMPARISON: Chest CT on 09/10/2019. FINDINGS: TUBES and LINES: None. LUNGS: Normal lung volumes. There is pulmonary vessel congestion without mich edema there is patchy opacification of the right infrahilar region. PLEURA: The left costophrenic sulcus is excluded from qcgmi-mv-bsyf. No Pneumothorax. HEART AND MEDIASTINUM: The cardiomediastinal [...] MD CT BRAIN WO 2019-12-25 19:45:00 [facility] : 1955 Sex: F [place] [address] Patient Name: FLEX ESPINOSA MR #: [id number] : 1955 Age/Sex: 64/F Req #: [id number] Adm Physician: Ordered by: JENNIFER ESTRADA MD Report #: [id number] Location: ER Room/Bed: Procedure: [id number] CT/CT BRAIN WO Exam Date: Exam Time: [...] JENNIFER ESTRADA MD GUIDED PARACENTESIS 2019-09-11 13:59:00 [place] [address] Patient Name: FLEX ESPINOSA MR #: [id number] : 1955 Age/Sex: 64/F Req #: [id number] Adm Physician: VIRGIE MORAN MD Ordered by: VIRGIE MORAN MD Report #: [id number] Location: MED/SURG2 Room/Bed: [facility] Procedure: [id number] US/US GUIDED PARACENTESIS Exam Date: 09/11/19 Exam Time: 1321 REPORT STATUS: Signed Procedure: Ultrasound-guided paracentesis 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 Pre-operative diagnosis: Ascites [...] MORAN MD CT CHEST W 2019-09-10 12:33:00 [place] [address] Patient Name: FLEX ESPINOSA MR #: [id number] : 1955 Age/Sex: 64/F Req #: [id number] Adm Physician: VIRGIE MORAN MD Ordered by: VIRGIE MORAN MD Report #: [id number] Location: [facility] Room/Bed: [place] [address] Procedure: [id number] CT/CT CHEST W Exam Date: 09/10/19 Exam [...] MORAN MD CT ABDOMEN/PELVIS W 2019-09-10 12:33:00 [place] [address] Patient Name: FLEX ESPINOSA MR #: [id number] : 1955 Age/Sex: 64/F Req #: [id number] Adm Physician: VIRGIE MORAN MD Ordered by: VIRGIE MORAN MD Report #: [id number] Location: [facility] Room/Bed: [place] [address] Procedure: [id number] CT/CT ABDOMEN/PELVIS W Exam Date: 09/10/19 Exam [...] MORAN MD CHEST SINGLE (PORTABLE) 2019-09-09 17:38:00 [place] [address] Patient Name: FLEX ESPINOSA MR #: [id number] : 1955 Age/Sex: 64/F Req #: [id number] Adm Physician: Ordered by: ELISE MORALES MD Report #: [id number] Location: ER Room/Bed: Procedure: [id number] DX/CHEST SINGLE (PORTABLE) Exam Date: 09/09/19 Exam [...] MORALES MD CT BRAIN WO 2019-09-09 17:25:00 [place] [address] Patient Name: FLEX ESPINOSA MR #: [id number] : 1955 Age/Sex: 64/F Req #: [id number] Adm Physician: Ordered by: ELISE MORALES MD Report #: [id number] Location: ER Room/Bed: Procedure: [id number] CT/CT BRAIN WO Exam Date: 09/09/19 Exam [...] CHEM PANEL 2014-09-27 08:40:00 1.7 [facility] ELECTROLYTES 2014-09-27 08:40:00 10.7 Mem orial [facility]olson ELECTROLYTES 2014-09-27 08:40:00 80 Mem orial Dieter ELECTROLYTES 2014-09-27 08:40:00 8.3 Mem orial [facility] ELECTROLYTES 2014-09-27 08:40:00 0.8 Mem orial [facility] ELECTROLYTES 2014-09-27 08:40:00 108 Mem orial [facility] ELECTROLYTES 2014-09-27 08:40:00 29 Mem orial [facility] ELECTROLYTES 2014-09-27 08:40:00 144 Mem orial Dieter ELECTROLYTES 2014-09-27 08:40:00 3.7 Mem o[facility] ELECTROLYTES 2014-09-27 08:40:00 3 Mem o[facility] ELECTROLYTES 2014-09-27 08:40:00 99 Mem orial [facility] HEMATOLOGY 2014-09-27 08:40:00 116 [facility] HEMATOLOGY 2014-09-27 08:40:00 8.5 [facility] HEMATOLOGY 2014-09-27 08:40:00 13.2 Mem[facility] HEMATOLOGY 2014-09-27 08:40:00 Test Item MCH (test code = MCH) 31.0 pg 27.0-31.0 [facility] WpsydhnNHHAUGAKBG2645-73-49 08:40:0033.4[facility]ann[facility]Y 2014-09-27 08:40:0093.1[facility] MjlnnqcAMTUFQKGPW1984-68-91 08:40:0025.1[facility] QdcciqsSXXRHWUJEG9669-99-47 08:40:008.4[facility] EvtrtknJNMMRFRFBP1563-04-02 08:40:002.70[facility] JsnlvjdYLGAUNPCYP8973-17-40 08:40:005.5[facility] IBPWBJCUIH9279-81-77 08:40:0010.1[facility] RufzzrgKQJNXFYPHE8381-01-10 08:40:00 46.8[facility] YubinfnWHLQPHABGN8994-29-79 08:40:0040.4[facility]ann[facility] 2014-09-27 08:40:000.1[facility] WycinrfWEMJWAKNIT0081-72-75 08:40:002.2[facility] GpsfkzjFYCQRFZCXM9003-44-18 08:40:000.6[facility] OufprbaZQTFUFAHUM2350-01-29 08:40:000.8[facility] EihalpwSKLYAGBBSF0268-02-07 08:40:002.6[facility] FJNPODQPIB6417-56-36 08:40:001.9[facility] HermannCHEM UNQBD7165-69-66 09:10:0035 [facility]annCHE[facility] JUFMF3909-52-98 09:10:005.3[facility] HermannCHEM PANEL 2014-09-26 09:10:002.4[facility] HermannCHEM TMVNZ2393-23-50 09:10:000.5[facility] HermannCHEM AAGJD0215-84-56 09:10:000.1[facility] HermannCHEM DBEEZ1474-90-16 09:10:0032[facility] HermannCHEM UEWEG4151-02-28 09:10:0067[facility]annCHE[facility] YKZTY7778-25-15 09:10:000.8[facility] HermannCHEM BZHUK4368-12-11 09:10:000.4 [facility]annCHE[facility] BELVH4832-68-58 09:10:002.9[facility] HermannCHEM PANEL 2014-09-26 09:10:001.6[facility] PqizcbgGZFWBFLOEHRL7220-72-05 09:10:009.8[facility] BjkzxfnGAMZZYXLFTEB7220-44-21 09:10:0094[facility] HrwmzbdRFBCLPOXYHGS0122-54-57 09:10:0029[facility] StarfrzYBJMQNMFBSHQ6746-48-58 09:10:008.2[facility] FPWNASUPYEYZ7484-63-80 09:10:000.7[facility] MtklhkfPUMTXCVYVFPQ8609-46-35 09:10:003.8[facility] GfclwmgIIVQNZQQFISI0546-54-41 09:10:004[facility] MOBQGJHKODPR3088-13-39 09:10:0096[facility] ShgatqeCDPZBUIGPDNZ6216-54-20 09:10:00 109[facility] AxeanplJZLZQVRWKPAS8357-83-33 09:10:06724Rkdowzgo HermannHEMATOLOGY 2014-09-26 09:10:00* Test Item Value Reference Range Interpretation Comments MCH (test code = MCH) 30.8 pg 27.0-31.0 [facility] XjyloyhRQPJKKLREL7526-32-94 09:10:0033.1[facility]ann[facility]MATOLOGY 2014-09-26 09:10:0024.5[facility] EmuhtllTDTZHDYEJK1472-30-50 09:10:0092.9[facility] HbjpurlAKFSXVKWIC3616-12-60 09:10:008.1[facility] BozuuieGAWXHIAMUW4023-99-65 09:10:008.7[facility] VrozllwVLVSVLWIPW3475-77-23 09:10:99809Pofxssjp [facility]olson OCQGFZTREN7578-23-90 09:10:0013.6[facility] CokptuqSDSFZABKQV8618-19-97 09:10:00 5.7[facility] NxxrmkkMFWXSVEEDO6766-25-77 09:10:002.64[facility]ann[facility]MATOLOGY 2014-09-26 09:10:000.6[facility] DlotmihMOFMJVTFVR7333-20-93 09:10:000.6[facility] CzhxlzwSRPWWPDOQY5844-69-48 09:10:001.9[facility] HpnrbxaWJEFGILRJU7579-34-02 09:10:003.1[facility] XgtyiqeRENGYNCVYO3795-98-34 09:10:000.8[facility] VDFXDEEBBZ8992-30-25 09:10:0011.1[facility] ZkitnryLLNBHDJMCS0199-02-90 09:10:00 33.6[facility] MeubcdhSZIFHLXPNK5984-75-22 09:10:0053.9[facility] HermannCHEM PANEL 2014-09-25 08:34:0080[facility] HermannCHEM KUUKX4092-41-94 08:34:75097Sunlpapb HermannCHEM AOWIU2170-42-37 08:34:99820Vicucqse HermannCHEM KWGDQ0649-63-88 08:34:0026[facility] HermannCHEM BVPGD0055-73-81 08:34:004.1[facility] HermannCHEM TPXQZ0840-03-58 08:34:0013.1[facility] HermannCHEM KDBPA9459-16-23 08:34:008.0 [facility] HermannCHEM FNTAY4012-87-49 08:34:006[facility] HermannCHEM PANEL 2014-09-25 08:34:000.8[facility] HermannCHEM ESGXF3424-99-18 08:34:16654Dmdoxnmk NlbasxaTMPGRXIPYB0514-87-82 08:34:0034.2[facility] KhepufuLNDHDJVOTW8152-46-43 08:34:0012.8[facility] KnosgbeDJTXQSUEBR7036-11-81 08:34:0090.6[facility] WXMLNQHDGT7267-01-93 08:34:00* Test Item Value Reference Range Interpretation Comments MCH (test code = MCH) 31.0 pg 27.0-31.0 [facility] GvvpugbWRVEHSYRZP5348-83-80 08:34:08450Iymkyrpe HermannHEMATOLOGY 2014-09-25 08:34:002.84[facility] EtrbzybGQPBWOEPJX4086-14-66 08:34:008.8[facility] WxrkshzCMAPFJGIPM1627-76-12 08:34:007.9[facility] VabvyprVENHVPNEWR2379-09-40 08:34:0025.7[facility] PyfuxbcFAEFBMSWZT6001-95-90 08:34:008.4[facility] ORHGQPWTMF1507-22-38 08:34:000.8[facility] FejaegvXYVHELGEJF3061-23-90 08:34:005.5 [facility] HzchfqiVVZBLDBLEB7427-94-23 08:34:001.6[facility] HermannHEMATOLOGY 2014-09-25 08:34:000.2[facility] HelmkvyADPFHPFTFV9184-76-03 08:34:009.6[facility] SpanewlOIWIUUPNCM7831-58-44 08:34:000.1[facility] IpcoapaODGNKCBTMN8024-67-66 08:34:0020.8[facility] WkqymumEDJYXZZUYT5750-02-52 08:34:0069.3[facility] URINE AND OVRDI1653-12-51 08:15:00Light Yellow *NA*(09/25/14 3:15 AM)[facility] AND LGZYP5437-24-27 08:15:00Clear (09/25/14 3:15 AM)[facility] URINE AND GBOOS0858-76-53 08:15:001[facility]ann[facility] AND ZVBLA2395-57-12 08:15:00<1[facility]ann[facility] AND XHNMG9094-69-65 08:15:00Negative (09/25/14 3:15 AM)[facility] ZZDZK7991-23-30 08:15:00Negative (09/25/14 3:15 AM)[facility] AND PKDFH3747-08-39 08:15:001.007[facility] AND KJPJJ5627-44-53 08:15:00Small *ABN*(09/25/14 3:15 AM)[facility] BTNHD0409-35-02 08:15:00Negative *NA*(09/25/14 3:15 AM)[facility] XVKQY5790-24-59 08:15:005.0[facility] HermannCHEM VBTBA0284-85-55 22:41:0023 [facility]annCHEM NRXLG3970-21-97 22:41:003.2[facility] HermannCHEM PANEL 2014-09-24 22:41:001.6[facility] SajhjggQBSNRYZGPQ7167-19-82 22:41:00Normal (09/24/14 5:41 PM)[facility] FqnjgkzVGSBHKPYXO8388-29-42 22:41:00Clumped (09/24/14 5:41 PM)[facility] HermannPARATHYROID JBKDHBH5942-17-02 22:41:0058.6[facility] HermannPARATHYROID SEADELM0764-45-94 22:41:001.08[facility] HermannPARATHYROID ZXJUCAV3720-01-64 22:41:001.12[facility]
--- OUTSIDE RECORDS SUMMARY | 2019-12-31 18:16 | XMS REPORT | Continuity of Care Document ---
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 [facility] of lumbar intervertebral disc (disorder) Active Problem 07/08/2017 Data migrated from [employer] on 07/24/14. [facility], SUSAN Cummings [facility] Fracture of bone (disorder) Ac tive Problem [facility], Reece Cummings NONUNION OF FRACTURE Active [facility] Medications Medication Details Route Status Patient Instructions Ordering Provider Order Date Source Acetaminophen 325 MG / Hydrocodone Kelsey trate 10 MG Oral Tablet [[place] 10/325] 1 -2 tab, PO, Q6H, # 60 tab, 0 Refill(s) , given to patient Active 09/27/2014 [facility] docusate sodium 100 mg oral capsule 100 mg = 1 cap, PO, BID, # 30 cap, 0 Refill(s) Active 09/27/2014 [facility] nter Aspirin 325 MG Oral Tablet 325 mg = 1 tab, PO, BID, # 22 tab, 0 Refill(s) Active 09/27/2014 [facility] Benzocaine 15 MG / Menthol 3.6 MG Lozeng e [Cepacol Sore Throat Pain Relief 15/3.6] Notes: Cepacol lozenges Dispense 1 box = 16 lozenges (Same As: Cepacol Lozenges) No Longer Active 09/25/2014 [facility] nter Acetaminophen Notes: Do not ex ceed 4 gm/day. (Same as: Tylenol) No Longer Active 09/25/2014 [facility] morphine Sulfate Notes: Do not crush (Same as:Oramorph SR, MS Contin) Inactive 09/25/2014 [facility] Docusate Notes: (Same as: Cola ce) (Do Not Crush) No Longer Active 09/25/2014 [facility] Sodium Chloride 0.154 MEQ/ML Injectable Solution 500 mL, 500 ml/hr, Infuse Over: 1 hr, Route: IV, 500, Drug form: INJ, ONCE, Priority: STAT, Dosing Weight 84.091 kg, Start date: 09/25/14 7:14:00, Duration: 1 doses or times, Stop date: 09/25/14 7:14:00 Inactive 09/25/2014 [facility] nter NS 1,000 mL 1,000 mL, Rate: 10 0 ml/hr, Infuse over: 10 hr, Route: IV, Dosing Weight 84.091 kg, Total Volume: 1,000, Start date: 09/24/14 22:26:00, Duration: 30 day, Stop date: 10/24/14 22:25:00 No Longer Active 09/25/2014 [facility] PlasmaLyte A PH-7.4 (Bolus) IV 1,000 mL, 1000 ml/hr, Route: IV, Drug Form: INJ, Dosing Weight 84.091, kg, ONCE, Start date: 09/24/14 21:35:00, Stop date: 09/24/14 21:35:00 Inactive 09/25/2014 [facility] nter sennosides, MCFP Notes: (Same a s: Senokot) No Longer Active 09/25/2014 [facility] Enoxaparin Notes: (Same as: Lo venox) No Longer Active 09/25/2014 [facility] Acetaminophen Notes: Infuse ov er 15 minutes Do not exceed 4gm/day of acetaminophen MEDICATION WASTE Product Size: 1000 mg Product Wasted: ___ mg No Longer Active 09/24/2014 [facility] Dilaudid Notes: (Same as: Dila udid) No Longer Active 09/24/2014 [facility] morphine Sulfate Notes: Do not crush (Same as:Oramorph SR, MS Contin) Inactive 09/24/2014 [facility] Ondansetron Notes: (Same as: Jenny wills) MEDICATION WASTE Product Size: 4 mg Product Wasted: ___ mg No Longer Active 09/24/2014 [facility] tizanidine Notes: (Same As: Za naflex) No Longer Active 09/24/2014 [facility] Docusate Notes: (Same as: Cola ce) (Do Not Crush) Inactive 09/24/2014 [facility] Cefazolin Notes: (Same As: Anc ef, Kefzol) Cefazolin FOR IV SET ONLY MEDICATION WASTE Product Size: 1000 mg Product Wasted: ___ mg No Longer Active 09/24/2014 [facility] ropivacaine Notes: Same as: Na ropin No Longer Active 09/24/2014 [facility] Midazolam 2 mg, Route: IV, ONC E, Dosing Weight 84.091, kg, Start date: 09/24/14 13:36:00, Stop date: 09/24/14 13:36:00 Inactive 09/24/2014 [facility] Ondansetron Notes: (Same as: Jenny wills) MEDICATION WASTE Product Size: 4 mg Product Wasted: ___ mg Inactive 09/24/2014 [facility] Fentanyl Notes: (Same as: Subl imaze) Preservative free. Inactive 09/24/2014 [facility] Flumazenil Notes: (Same as: Ro mazicon) Inactive 09/24/2014 [facility] Morphine Notes: (Same as:MORPh ine Sulfate) Inactive 09/24/2014 [facility] Hydromorphone Notes: Same as: Dilaudid Inactive 09/24/2014 [facility] Naloxone Notes: (Same as: Narc an) Inactive 09/24/2014 [facility] Oxycodone Notes: (Same as: Miladis icodone) Inactive 09/24/2014 [facility] Ondansetron Notes: (Same as: Jenny wills) MEDICATION WASTE Product Size: 4 mg Product Wasted: ___ mg Inactive 09/24/2014 [facility] Diphenhydramine Notes: (Same a s: Benadryl) No Longer Active 09/24/2014 [facility] Morphine 30 mg, PO, BID, 0 Ref ill(s) No Longer Active 09/21/2014 [facility] diazepam 10 mg oral tablet 10 mg = 1 tab, PO, BID, # 60 tab, 0 Refill(s) No Longer Active 09/21/2014 [facility] nter Hydromorphone 4 mg, PO, Q4H, 0 Refill(s) No Longer Active 09/21/2014 [facility] tizanidine 2 mg oral capsule 2 mg = 1 cap, PO, Q8H, 0 Refill(s) No Longer Active 09/21/2014 [facility] Allergies, Adverse Reactions, Alerts No Known Medication Allergies Immunizations No Data Provided for This Section Results Order Name Results Value Reference Range Date Interpretation Comments Source CHEM PANEL Magnesium Lvl 1.7 1.8 - 2.4 09/27/2014 [facility] ELECTROLYTES AGAP 10.7 10.0 - 20.0 09/27/2014 [facility] ELECTROLYTES eGFR 80 09/27/2014 Result Comment: The [...] should be multiplied by the estimated BMI. [facility] ELECTROLYTES Calcium Lvl 8.3 8.5 - 10.5 09/27/2014 [facility] ELECTROLYTES Creatinine Lvl 0.8 0.5 - 1.4 09/27/2014 [facility] ELECTROLYTES Chloride Lvl 108 95 - 109 09/27/2014 [facility] ELECTROLYTES CO2 29 24 - 32 09/27/2014 [facility] ELECTROLYTES Sodium Lvl 144 135 - 145 09/27/2014 [facility] ELECTROLYTES Potassium Lvl 3.7 3.5 - 5.1 09/27/2014 [facility] ELECTROLYTES BUN 3 7 - 22 09/27/2014 [facility] ELECTROLYTES Glucose Lvl 99 70 - 99 09/27/2014 [facility] HEMATOLOGY Platelet 116 133 - 450 09/27/2014 [facility] HEMATOLOGY MPV 8.5 7.4 - 10.4 09/27/2014 [facility] HEMATOLOGY RDW 13.2 11.5 - 14.5 09/27/2014 [facility] HEMATOLOGY MCH 31.0 27.0 - 31.0 09/27/2014 [facility] HEMATOLOGY MCHC 33.4 32.0 - 36.0 09/27/2014 [facility] HEMATOLOGY MCV 93.1 80.0 - 98.0 09/27/2014 [facility] HEMATOLOGY Hct 25.1 36.0 - 48.0 09/27/2014 [facility] HEMATOLOGY Hgb 8.4 12.0 - 16.0 09/27/2014 [facility] HEMATOLOGY RBC 2.70 4.20 - 5.40 09/27/2014 [facility] HEMATOLOGY WBC 5.5 3.7 - 10.4 09/27/2014 [facility] HEMATOLOGY Monocytes 10.1 2.0 - 12.0 09/27/2014 [facility] HEMATOLOGY Segs 46.8 45.0 - 75.0 09/27/2014 [facility] HEMATOLOGY Lymphocytes 40.4 20.0 - 40.0 09/27/2014 [facility] HEMATOLOGY Eosinophils # 0.1 0.0 - 0.5 09/27/2014 [facility] HEMATOLOGY Lymphocytes # 2.2 1.0 - 5.5 09/27/2014 [facility] HEMATOLOGY Monocytes # 0.6 0.0 - 0.8 09/27/2014 [facility] HEMATOLOGY Basophils 0.8 0.0 - 1.0 09/27/2014 [facility] HEMATOLOGY Segs-Bands # 2.6 1.5 - 8.1 09/27/2014 [facility] HEMATOLOGY Eosinophils 1.9 0.0 - 4.0 09/27/2014 [facility] CHEM PANEL ALT 35 0 - 65 09/26/2014 [facility] CHEM PANEL Total Protein 5.3 6.4 - 8.4 09/26/2014 [facility] CHEM PANEL Albumin Lvl 2.4 3.5 - 5.0 09/26/2014 [facility] CHEM PANEL Bili Total 0.5 0.2 - 1.3 09/26/2014 [facility] CHEM PANEL Bili Direct 0.1 0.0 - 0.3 09/26/2014 [facility] CHEM PANEL AST 32 0 - 37 09/26/2014 [facility] CHEM PANEL Alk Phos 67 39 - 136 09/26/2014 [facility] CHEM PANEL A/G Ratio 0.8 0.7 - 1.6 09/26/2014 [facility] CHEM PANEL Bili Indirect 0.4 0.0 - 1.0 09/26/2014 [facility] CHEM PANEL Globulin 2.9 2.0 - 4.0 09/26/2014 [facility] CHEM PANEL Magnesium Lvl 1.6 1.8 - 2.4 09/26/2014 [facility] ELECTROLYTES AGAP 9.8 10.0 - 20.0 09/26/2014 [facility] ELECTROLYTES eGFR 94 09/26/2014 Result Comment: The [...] should be multiplied by the estimated BMI. [facility] ELECTROLYTES CO2 29 24 - 32 09/26/2014 [facility] ELECTROLYTES Calcium Lvl 8.2 8.5 - 10.5 09/26/2014 [facility] ELECTROLYTES Creatinine Lvl 0.7 0.5 - 1.4 09/26/2014 [facility] ELECTROLYTES Potassium Lvl 3.8 3.5 - 5.1 09/26/2014 [facility] ELECTROLYTES BUN 4 7 - 22 09/26/2014 [facility] ELECTROLYTES Glucose Lvl 96 70 - 99 09/26/2014 [facility] ELECTROLYTES Chloride Lvl 109 95 - 109 09/26/2014 [facility] ELECTROLYTES Sodium Lvl 144 135 - 145 09/26/2014 [facility] HEMATOLOGY MCH 30.8 27.0 - 31.0 09/26/2014 [facility] HEMATOLOGY MCHC 33.1 32.0 - 36.0 09/26/2014 [facility] HEMATOLOGY Hct 24.5 36.0 - 48.0 09/26/2014 [facility] HEMATOLOGY MCV 92.9 80.0 - 98.0 09/26/2014 [facility] HEMATOLOGY Hgb 8.1 12.0 - 16.0 09/26/2014 [facility] HEMATOLOGY MPV 8.7 7.4 - 10.4 09/26/2014 [facility] HEMATOLOGY Platelet 111 133 - 450 09/26/2014 [facility] HEMATOLOGY RDW 13.6 11.5 - 14.5 09/26/2014 [facility] HEMATOLOGY WBC 5.7 3.7 - 10.4 09/26/2014 [facility] HEMATOLOGY RBC 2.64 4.20 - 5.40 09/26/2014 [facility] HEMATOLOGY Monocytes # 0.6 0.0 - 0.8 09/26/2014 [facility] HEMATOLOGY Basophils 0.6 0.0 - 1.0 09/26/2014 [facility] HEMATOLOGY Lymphocytes # 1.9 1.0 - 5.5 09/26/2014 [facility] HEMATOLOGY Segs-Bands # 3.1 1.5 - 8.1 09/26/2014 [facility] HEMATOLOGY Eosinophils 0.8 0.0 - 4.0 09/26/2014 [facility] HEMATOLOGY Monocytes 11.1 2.0 - 12.0 09/26/2014 [facility] HEMATOLOGY Lymphocytes 33.6 20.0 - 40.0 09/26/2014 [facility] HEMATOLOGY Segs 53.9 45.0 - 75.0 09/26/2014 [facility] CHEM PANEL eGFR 80 09/25/2014 Result Comment: [...] should be multiplied by the estimated BMI. [facility] CHEM PANEL Sodium Lvl 141 135 - 145 09/25/2014 [facility] CHEM PANEL Chloride Lvl 106 95 - 109 09/25/2014 [facility] CHEM PANEL CO2 26 24 - 32 09/25/2014 [facility] CHEM PANEL Potassium Lvl 4.1 3.5 - 5.1 09/25/2014 [facility] CHEM PANEL AGAP 13.1 10.0 - 20.0 09/25/2014 [facility] CHEM PANEL Calcium Lvl 8.0 8.5 - 10.5 09/25/2014 [facility] CHEM PANEL BUN 6 7 - 22 09/25/2014 [facility] CHEM PANEL Creatinine Lvl 0.8 0.5 - 1.4 09/25/2014 [facility] CHEM PANEL Glucose Lvl 108 70 - 99 09/25/2014 [facility] HEMATOLOGY MCHC 34.2 32.0 - 36.0 09/25/2014 [facility] HEMATOLOGY RDW 12.8 11.5 - 14.5 09/25/2014 [facility] HEMATOLOGY MCV 90.6 80.0 - 98.0 09/25/2014 [facility] HEMATOLOGY MCH 31.0 27.0 - 31.0 09/25/2014 [facility] HEMATOLOGY Platelet 117 133 - 450 09/25/2014 [facility] HEMATOLOGY RBC 2.84 4.20 - 5.40 09/25/2014 [facility] HEMATOLOGY Hgb 8.8 12.0 - 16.0 09/25/2014 [facility] HEMATOLOGY WBC 7.9 3.7 - 10.4 09/25/2014 [facility] HEMATOLOGY Hct 25.7 36.0 - 48.0 09/25/2014 [facility] HEMATOLOGY MPV 8.4 7.4 - 10.4 09/25/2014 [facility] HEMATOLOGY Monocytes # 0.8 0.0 - 0.8 09/25/2014 [facility] HEMATOLOGY Segs-Bands # 5.5 1.5 - 8.1 09/25/2014 [facility] HEMATOLOGY Lymphocytes # 1.6 1.0 - 5.5 09/25/2014 [facility] HEMATOLOGY Basophils 0.2 0.0 - 1.0 09/25/2014 [facility] HEMATOLOGY Monocytes 9.6 2.0 - 12.0 09/25/2014 [facility] HEMATOLOGY Eosinophils 0.1 0.0 - 4.0 09/25/2014 [facility] HEMATOLOGY Lymphocytes 20.8 20.0 - 40.0 09/25/2014 [facility] HEMATOLOGY Segs 69.3 45.0 - 75.0 09/25/2014 [facility] URINE AND STOOL UA Color Light Yellow *NA* (09/25/14 3:15 AM) Yellow 09/25/2014 [facility] URINE AND STOOL UA Turbidity Clear (09/25/14 3:15 AM) Clear 09/25/2014 [facility] URINE AND STOOL UA RBC 1 0 - 2 09/25/2014 [facility] URINE AND STOOL UA Mucus Few /LPF None Seen /LPF 09/25/2014 [facility] URINE AND STOOL UA WBC <1 0 - 5 09/25/2014 [facility] URINE AND STOOL UA Nitrite Negative (09/25/14 3:15 AM) Negative 09/25/2014 [facility] URINE AND STOOL UA Sq Epi Few /LPF Few /LPF 09/25/2014 [facility] URINE AND STOOL UA Leuk Est Negative (09/25/14 3:15 AM) Negative 09/25/2014 [facility] URINE AND STOOL UA Ketones Negative mg/dL Negative mg/dL 09/25/2014 [facility] URINE AND STOOL UA Urobilinogen <=1.0 mg/dL 0.1 - 1.0 09/25/2014 [facility] URINE AND STOOL UA Spec Grav 1.007 <=1.030 09/25/2014 [facility] URINE AND STOOL UA Blood Small *ABN* (09/25/14 3:15 AM) Negative 09/25/2014 [facility] URINE AND STOOL UA Bili Negative *NA* (09/25/14 3:15 AM) Negative 09/25/2014 [facility] URINE AND STOOL UA pH 5.0 5.0 - 8.0 09/25/2014 [facility] URINE AND STOOL UA Glucose Negative mg/dL Negative mg/dL 09/25/2014 [facility] URINE AND STOOL UA Protein Negative mg/dL Negative mg/dL 09/25/2014 [facility] CHEM PANEL Vitamin D, 25-OH, Total 2 3 30 - 100 09/24/2014 [facility] CHEM PANEL Phosphorus 3.2 2.5 - 4.5 09/24/2014 [facility] CHEM PANEL Magnesium Lvl 1.6 1.8 - 2.4 09/24/2014 [facility] HEMATOLOGY RBC Morph Irina l (09/24/14 5:41 PM) 09/24/2014 [facility] HEMATOLOGY Plt Morph Clump ed (09/24/14 5:41 PM) 09/24/2014 [facility] PARATHYROID PROFILE PTH Intact 58.6 11.1 - 79.5 09/24/2014 [facility] PARATHYROID PROFILE Ca Norm WB 1.08 1.05 - 1.25 09/24/2014 [facility] PARATHYROID PROFILE Ca Ion WB 1.12 1.05 - 1.25 09/24/2014 [facility] Pathology Reports No Data Provided for This [...] er. 2. Splenomegaly. 3. Cholelithiasis. 07/05/2017 [facility] Chest 1view DX Portable ap maxwell ierect [...] costophr enic sulcus as described above. 09/24/2014 [facility] Humerus 2 views DX EXAM: Two-v iew [...] plates. Bone grafts also present. . 09/24/2014 [facility] Humerus wo contrast CT Examina tion: CT [...] of the radiocapitellar joint. SL: 16 09/14/2014 [facility] Consultation Notes No Data Provided for This Section Discharge Summaries No Data Provided for This Section History and Physicals No Data Provided for This Section Vital Signs Vital Sign Value Date Comments Source Weight 79.545 08/16/2016 [facility] Height 172.72 cm 08/16/2016 [facility] BMI Calculated 26.66 08/16/2016 [facility] Systolic (mm Hg) 111 09/27/2014 [facility] Diastolic (mm Hg) 63 09/27/2014 [facility] Heart Rate 97 09/27/2014 [facility] Respitory Rate 18 09/27/2014 [facility] Temperature Oral (F) 98.9 F 09/27/2014 [facility] Temperature Oral (F) 98.7 F 09/27/2014 [facility] Heart Rate 85 09/27/2014 [facility] Respitory Rate 18 09/27/2014 [facility] Systolic (mm Hg) 116 09/27/2014 [facility] Diastolic (mm Hg) 68 09/27/2014 [facility] Systolic (mm Hg) 103 09/27/2014 [facility] Diastolic (mm Hg) 58 09/27/2014 [facility] Respitory Rate 18 09/27/2014 [facility] Temperature Oral (F) 98.4 F 09/27/2014 [facility] Heart Rate 85 09/27/2014 [facility] BMI Calculated 28.19 09/21/2014 [facility] Weight 84.091 09/21/2014 [facility] Height 172.72 cm 09/21/2014 [facility] Encounters Location Location Details Encounter Type Encounter Number Reason For Visit Attending Provider ADM Date DC Date Status Source [facility] [id number] Raoul Nichole 09/14/2014 09/15/2014 [facility] Inpatient [id number] Raoul Kilpatricko 09/24/2014 09/27/2014 [facility] W[facility] Care [id number] Alexis Hinton 08/16/2016 09/15/2016 [facility] [id number] Rocky Bhardwaj 07/05/2017 07/06/2017 [facility] Procedures Procedure Code Date Perfomer Comments Source Operation [id number] [facility] Assessment and Plan Assessment and Plan Date Source Extracted from:Title: ORTHO TRAUMA Author: Marily Do BDR Date: 09/27/14 ORS TRAUMA Doing ok NAD [...] has a pain spe cialist - Rx [place] given 2. DVT prophylaxis: ASA 325 mg [...] Dr. Nichole on Oct 13, 2014. Call [phone] for appointment. 10. Plan for surgery: None per ORS. 11. Please call Ortho for any question or concerns. Extracted from:Title: Consult Note Author: Mg Mott MD Date: 09/24/14 Assessment/Plan #Left humerus fracture: s/p repair, per ortho; post-op antibiotics ancef. #acute pain: APMS consulted; block being placed. - pt has history of chronic pain. -cont bowel regiment lovenox sq [facility]UTS consult: page [phone] Addendum by Mg Mott MD on 09/24/2014 16:27 Saw patient again in room. more alert. discussed with family at bedside as well. 09/27/2014 [facility] Plan of Care No Data Provided for [...] Yes; Reg Smoking Cessation Counseling Yes 09/24/2014 [facility] No data available for this section 09/15/2014 [facility] Family History No Data Provided for This Section Advance Directives No Data Provided for This Section Functional Status No Data Provided for This Section
== END 2019-12-30 12:29 | disposition home or self-care (01) | DRG 432 ==
LOC: ER 18:37 → ERHOLD 21:23 → MED/SURG3 12-26 00:28
PROVIDERS: ADMIT Family Medicine; ATTEND Family Medicine
DX: K74.69 Other cirrhosis of liver (principal); G93.41 Metabolic encephalopathy; E87.3 Alkalosis; K72.90 Hepatic failure, unspecified without coma; E87.5 Hyperkalemia; B18.2 Chronic viral hepatitis C; E87.6 Hypokalemia; T50.2X5A Adverse effect of carbonic-anhydrase inhibitors, benzothiadiazides and other diuretics, initial encounter; Z11.59 Encounter for screening for other viral diseases
CPT/HCPCS: 36415; 36600; 70450; 71045; 80048; 80053; 81001; 82140; 82805; 82948; 83735; 85025; 85610; 85730; 93005; 99284; J3475; J3480; J7030; J7040

== ENCOUNTER → 2022-12-13 | Outpatient (REF) | payer MEDICARE, OTHER ==
[~2022-12-13] MED LIST changes: +ALDACTONE25 MG PO; +HYDROCHLOROTHIA50 MG PO; +LOPRESSOR25 MG PO; +OMEPRAZOLE20 MG PO
[2022-12-13 11:31] LABS: BASOPHILS % 0.6 % (0.0-1.0); EOSINOPHILS # (AUTO) 0.1 (0.0-0.4); EOSINOPHILS % 2.4 % (0.0-6.0); HEMATOCRIT 40.7 % (34.2-44.1); HEMOGLOBIN 14.3 g/dL (12.0-16.0); LYMPHOCYTES # (AUTO) 1.4 (1.0-3.2); LYMPHOCYTES % 27.3 % (18.0-39.1); MEAN CORPUSCULAR HEMOGLOBIN 31.6 pg (28-32); MEAN CORPUSCULAR HGB CONC 35.1 g/dL (31-35); MEAN CORPUSCULAR VOLUME 89.8 fL (81-99); MONOCYTES # (AUTO) 0.6 (0.2-0.8); MONOCYTES % 11.6 % (4.4-11.3); NEUTROPHILS # (AUTO) 2.9 (2.1-6.9); NEUTROPHILS % 57.9 % (38.7-80.0); PLATELET COUNT 82 x10e3/uL (140-360); RED BLOOD COUNT 4.53 x10e6/uL (3.6-5.1); RED CELL DISTRIBUTION WIDTH 13.9 % (11.7-14.4); WHITE BLOOD COUNT 5.01 x10e3/uL (4.8-10.8)
[2022-12-13 11:53] LABS: INR 1.23; PROTHROMBIN TIME 16.3 seconds (11.9-14.5)
[2022-12-13 11:58] LABS: PARTIAL THROMBOPLASTIN TIME 28.9 seconds (23.8-35.5)
== END ==
LOC: US 10:06
PROVIDERS: ATTEND Specialist
DX: R18.8 Other ascites (principal)
CPT/HCPCS: 36415; 76705; 85025; 85610; 85730

== ENCOUNTER 2023-10-09 10:33 | Observation (INO) | payer MEDICARE, OTHER ==
[~2023-10-09] VITALS: Ht 170.2 cm; Wt 115.7 kg
[~2023-10-09 10:33] MED LIST changes: +TEMAZEPAM15 MG PO
[2023-10-09 11:25] VITALS: TEMP 98.3
[2023-10-09 12:45] LABS: BASOPHILS % 0.3 % (0.0-1.0); EOSINOPHILS % 0.5 % (0.0-6.0); HEMATOCRIT 40.7 % (34.2-44.1); HEMOGLOBIN 12.4 g/dL (12.0-16.0); LYMPHOCYTES # (AUTO) 0.6 (1.0-3.2); LYMPHOCYTES % 15.4 % (18.0-39.1); MEAN CORPUSCULAR HEMOGLOBIN 27.2 pg (28-32); MEAN CORPUSCULAR HGB CONC 30.5 g/dL (31-35); MEAN CORPUSCULAR VOLUME 89.3 fL (81-99); MONOCYTES # (AUTO) 0.3 (0.2-0.8); MONOCYTES % 7.3 % (4.4-11.3); NEUTROPHILS % 76.2 % (38.7-80.0); PLATELET COUNT 85 x10e3/uL (140-360); RED BLOOD COUNT 4.56 x10e6/uL (3.6-5.1); RED CELL DISTRIBUTION WIDTH 16.1 % (11.7-14.4); WHITE BLOOD COUNT 3.97 x10e3/uL (4.8-10.8)
[2023-10-09 13:20] LABS: ALBUMIN 4.2 g/dL (3.5-5.0); ALBUMIN/GLOBULIN RATIO 0.9 (0.8-2.0); ANION GAP 14.7 mmol/L (8-16); BILIRUBIN,TOTAL 2.6 mg/dL (0.2-1.2); CALCIUM 9.7 mg/dL (8.4-10.2); CREATININE, SERUM 0.86 mg/dL (0.57-1.11); POTASSIUM 3.7 mmol/L (3.5-5.1)
[2023-10-09 14:35] LABS: CLARITY,URINE CLEAR (CLEAR); COLOR,URINE YELLOW (YELLOW); GLUCOSE, URINE NEGATIVE (NEGATIVE); KETONES,URINE NEGATIVE (NEGATIVE); LEUKOCYTE ESTERASE ,URINE TRACE (NEGATIVE); NITRITE,URINE NEGATIVE (NEGATIVE); PH,URINE 7 (5 - 7); PROTEIN,URINE DIPSTICK NEGATIVE (NEGATIVE); URINE UROBILINOGEN 1 mg/dL (0.2 - 1)
[2023-10-09 14:36] LABS: BILIRUBIN,URINE NEGATIVE (NEGATIVE)
[2023-10-09 14:40] LABS: BACTERIA,URINE RARE /HPF; EPITHELIAL CELLS,URINE FEW /LPF; WBC,URINE (MAN) 0-5 /HPF (0-5)
[2023-10-09] MEDS ORDERED: ONDANSETRON ODT4 MG PO (15:03)
[2023-10-09] MEDS ORDERED: ONDANSETRON HCL INJ 2MG/ML 2ML 2 MG/ML VIAL IV PRN (15:45)
[2023-10-09] MEDS ORDERED: SODIUM CHLORIDE FLUSH 10 ML SYR INJ PRN (15:45)
[2023-10-09] MEDS: LACTULOSE SYRUP 20 GM/30 ML UDC PO ONE ×2 (16:26→20:56)
[2023-10-09 16:58] VITALS: PULSE 78; RESP 16
[2023-10-09] MEDS ORDERED: ELIQUIS2.5 MG PO (17:44)
[2023-10-09] MEDS ORDERED: ZYPREXA10 MG PO (17:44)
[2023-10-09] MEDS ORDERED: OMEPRAZOLE40 MG PO (17:44)
[2023-10-09] MEDS ORDERED: ALDACTONE50 MG PO (17:44)
[2023-10-09] MEDS ORDERED: VENTOLIN HFA18 GM INH (17:44)
[2023-10-09] MEDS ORDERED: MORPHINE SULFAT15 MG PO (17:44)
[2023-10-09] MEDS ORDERED: POTASSIUM CHLO20 ME1 PO (17:44)
[2023-10-09] MEDS ORDERED: TRELEGY ELLIPT1 EACH INH (17:44)
[2023-10-09] MEDS ORDERED: METOPROLOL SUCC25 MG PO (17:44)
[2023-10-09] MEDS ORDERED: METHOCARBAMOL750 MG PO (17:44)
[2023-10-09] MEDS: RIFAXIMIN 550 MG TABLET PO SCH (17:52)
[2023-10-09] MEDS: SODIUM CHLORIDE 0.9% 1000ML 1,000 ML IV SCH (17:52)
[2023-10-09 18:00] VITALS: BP 125/63; PULSE 89; RESP 18; TEMP 98.4; O2SAT 97
[2023-10-09] MEDS ORDERED: ALBUTEROL SULF 0.083% NEB SOLN 3 ML NEB INH PRN (18:00)
[2023-10-09 20:00] VITALS: BP 115/58; PULSE 84; RESP 21; TEMP 98.5; O2SAT 97
[2023-10-09] MEDS: MORPHINE SULFATE IR 15 MG TABLET PO PRN (20:54)
[2023-10-09] MEDS: OLANZAPINE 5 MG TAB PO SCH (20:54)
[2023-10-09 21:30] VITALS: BP 115/58; PULSE 84; RESP 21; TEMP 98.5; O2SAT 97
[2023-10-10] VITALS (10 sets, daily range): BP systolic 97–120; BP diastolic 50–67; PULSE 73–88; RESP 16–20; TEMP 98.1–99.3; O2SAT 95–99
[2023-10-10] MEDS: PANTOPRAZOLE SODIUM 20 MG TABLET.DR PO SCH (07:23)
[2023-10-10] MEDS: APIXABAN 2.5 MG TABLET PO SCH (08:10)
[2023-10-10] MEDS: METOPROLOL SUCCINATE 25 MG TAB XL PO SCH (08:11)
[2023-10-10] MEDS: LACTULOSE SYRUP 20 GM/30 ML UDC PO SCH (15:15)
[2023-10-10] MEDS: SPIRONOLACTONE 25 MG TAB PO SCH (17:02)
[2023-10-11] VITALS: BP 129/66; PULSE 80; RESP 20; TEMP 98.6; O2SAT 99
[2023-10-11 04:30] VITALS: BP 117/67; PULSE 81; RESP 20; TEMP 98.2; O2SAT 96
[2023-10-11 05:46] LABS: EOSINOPHILS % 0.8 % (0.0-6.0); HEMATOCRIT 31.6 % (34.2-44.1); HEMOGLOBIN 9.9 g/dL (12.0-16.0); LYMPHOCYTES # (AUTO) 0.8 (1.0-3.2); LYMPHOCYTES % 32.1 % (18.0-39.1); MEAN CORPUSCULAR HEMOGLOBIN 27.5 pg (28-32); MEAN CORPUSCULAR HGB CONC 31.3 g/dL (31-35); MEAN CORPUSCULAR VOLUME 87.8 fL (81-99); MONOCYTES # (AUTO) 0.3 (0.2-0.8); MONOCYTES % 11.5 % (4.4-11.3); NEUTROPHILS # (AUTO) 1.4 (2.1-6.9); NEUTROPHILS % 55.6 % (38.7-80.0); PLATELET COUNT 64 x10e3/uL (140-360); RED CELL DISTRIBUTION WIDTH 15.9 % (11.7-14.4); WHITE BLOOD COUNT 2.43 x10e3/uL (4.8-10.8)
[2023-10-11 06:55] LABS: ALBUMIN 3.1 g/dL (3.5-5.0); ALBUMIN/GLOBULIN RATIO 0.9 (0.8-2.0); ANION GAP 10.4 mmol/L (8-16); BILIRUBIN,TOTAL 1.8 mg/dL (0.2-1.2); CALCIUM 8.9 mg/dL (8.4-10.2); CREATININE, SERUM 0.7 mg/dL (0.57-1.11); TOTAL PROTEIN 6.4 g/dL (6.5-8.1)
[2023-10-11 07:02] VITALS: PULSE 78; RESP 22; O2SAT 96
[2023-10-11 07:12] LABS: POTASSIUM 3.4 mmol/L (3.5-5.1)
[2023-10-11 08:00] VITALS: BP 119/77; PULSE 81; RESP 18; TEMP 98.4; O2SAT 97
[2023-10-11 09:35] VITALS: BP 119/77; PULSE 81; RESP 18; TEMP 98.4; O2SAT 97
[2023-10-11] MEDS ORDERED: ONDANSETRON HCL 4 MG ORAL DISINTEGRATING TAB PO PRN (10:15)
[2023-10-11 12:07] VITALS: BP 116/69; PULSE 81; RESP 17; TEMP 98.4; O2SAT 96
[2023-10-11] MEDS ORDERED: XIFAXAN550 MG PO (12:37)
[2023-10-11] MEDS ORDERED: LACTULOSE20 GM/30 M PO (12:37)
[2023-10-11] MEDS: POTASSIUM CHLORIDE 20 MEQ TAB CR PO ONE (13:00)
== END 2023-10-11 14:25 | disposition home or self-care (01) ==
LOC: ER 10:49 → ERHOLD 15:40 → MED/SURG3 17:05
PROVIDERS: ADMIT Internal Medicine; ATTEND Internal Medicine
DX: K76.82 Hepatic encephalopathy (principal); B18.2 Chronic viral hepatitis C; K74.60 Unspecified cirrhosis of liver; I10 Essential (primary) hypertension; I48.91 Unspecified atrial fibrillation; Z79.01 Long term (current) use of anticoagulants; M54.9 Dorsalgia, unspecified; G89.29 Other chronic pain; R53.2 Functional quadriplegia; F41.9 Anxiety disorder, unspecified; K21.9 Gastro-esophageal reflux disease without esophagitis; Z20.822 Contact with and (suspected) exposure to COVID-19
CPT/HCPCS: 0223U; 36415 ×2; 70450; 76705; 80053 ×2; 81001; 82140 ×2; 85025 ×2; 93005; 94799 ×2; 99252; 99284; G0378 ×3; J7030 ×2

== ENCOUNTER 2024-01-15 10:07 | Inpatient (IN) | payer MEDICARE ==
[~2024-01-15] VITALS: Ht 170.2 cm; Wt 81.6 kg
[2024-01-15] VITALS (8 sets, daily range): BP systolic 96–118; BP diastolic 61–65; PULSE 76–86; RESP 16–21; TEMP 98.2–98.8; O2SAT 96–100
[~2024-01-15 10:07] MED LIST changes: +ALDACTONE50 MG PO; +ELIQUIS2.5 MG PO; +LACTULOSE20 GM/30 M PO; +METHOCARBAMOL750 MG PO; +METOPROLOL SUCC25 MG PO; +MORPHINE SULFAT15 MG PO; +OMEPRAZOLE40 MG PO; +ONDANSETRON ODT4 MG PO; +POTASSIUM CHLO20 ME1 PO; +TRELEGY ELLIPT1 EACH INH; +VENTOLIN HFA18 GM INH; +XIFAXAN550 MG PO; +ZYPREXA10 MG PO
[2024-01-15 11:01] LABS: BASOPHILS % 0.3 % (0.0-1.0); EOSINOPHILS % 0.6 % (0.0-6.0); HEMATOCRIT 43.6 % (34.2-44.1); HEMOGLOBIN 13.2 g/dL (12.0-16.0); LYMPHOCYTES % 14.3 % (18.0-39.1); MEAN CORPUSCULAR HEMOGLOBIN 28.1 pg (28-32); MEAN CORPUSCULAR HGB CONC 30.3 g/dL (31-35); MONOCYTES # (AUTO) 0.7 (0.2-0.8); MONOCYTES % 9.7 % (4.4-11.3); NEUTROPHILS # (AUTO) 5.2 (2.1-6.9); NEUTROPHILS % 74.8 % (38.7-80.0); PLATELET COUNT 74 x10e3/uL (140-360); RED BLOOD COUNT 4.69 x10e6/uL (3.6-5.1); RED CELL DISTRIBUTION WIDTH 15.8 % (11.7-14.4); WHITE BLOOD COUNT 6.94 x10e3/uL (4.8-10.8)
[2024-01-15 11:16] LABS: CORONAVIRUS COVID-19 AG NEGATIVE (NEGATIVE); INFLUENZA A AG NEGATIVE (NEGATIVE); INFLUENZA B AG NEGATIVE (NEGATIVE)
[2024-01-15 11:18] LABS: ALBUMIN 3.9 g/dL (3.5-5.0); ALBUMIN/GLOBULIN RATIO 1.2 (0.8-2.0); ANION GAP 13.3 mmol/L (8-16); BILIRUBIN,TOTAL 2.5 mg/dL (0.2-1.2); CALCIUM 9.5 mg/dL (8.4-10.2); CREATININE, SERUM 0.84 mg/dL (0.57-1.11); TOTAL PROTEIN 7.2 g/dL (6.5-8.1)
[2024-01-15 11:19] LABS: POTASSIUM 3.3 mmol/L (3.5-5.1)
[2024-01-15 11:21] LABS: BILIRUBIN,URINE NEGATIVE (NEGATIVE); CLARITY,URINE CLEAR (CLEAR); COLOR,URINE YELLOW (YELLOW); GLUCOSE, URINE NEGATIVE (NEGATIVE); KETONES,URINE NEGATIVE (NEGATIVE); LEUKOCYTE ESTERASE ,URINE TRACE (NEGATIVE); NITRITE,URINE NEGATIVE (NEGATIVE); PH,URINE 5.5 (5 - 7); PROTEIN,URINE DIPSTICK NEGATIVE (NEGATIVE); URINE UROBILINOGEN 0.2 mg/dL (0.2 - 1)
[2024-01-15 11:22] LABS: INR 1.19; PROTHROMBIN TIME 15.8 seconds (11.9-14.5)
[2024-01-15 11:27] LABS: TROPONIN I 0.015 ng/mL (0-0.300)
[2024-01-15] MEDS ORDERED: IOPAMIDOL 370 MG/ML 100 ML INFUS..BTL INJ ONE (11:28)
[2024-01-15 11:35] LABS: BACTERIA,URINE FEW /HPF; EPITHELIAL CELLS,URINE FEW /LPF; RBC,URINE 0-5 /HPF (0-5)
[2024-01-15] MEDS ORDERED: ALBUTEROL/IPRATROPIUM 3 ML NEB NEB PRN (13:15)
[2024-01-15] MEDS ORDERED: HYDRALAZINE HCL 20 MG/ML VIAL IV PRN (13:45)
[2024-01-15] MEDS ORDERED: ONDANSETRON HCL INJ 2MG/ML 2ML 2 MG/ML VIAL IV PRN (13:45)
[2024-01-15] MEDS ORDERED: ALBUTEROL 90 MCG/ACT INHALER INH PRN (16:15)
[2024-01-15] MEDS: APIXABAN 2.5 MG TABLET PO SCH (17:29)
[2024-01-15] MEDS: SPIRONOLACTONE 25 MG TAB PO SCH (17:29)
[2024-01-15] MEDS: METHOCARBAMOL 500 MG TAB PO SCH (17:29)
[2024-01-15] MEDS: RIFAXIMIN 550 MG TABLET PO SCH (17:29)
[2024-01-15] MEDS: LACTULOSE SYRUP 20 GM/30 ML UDC PO SCH (20:02)
[2024-01-15] MEDS: OLANZAPINE 5 MG TAB PO SCH (20:03)
[2024-01-15] MEDS: MORPHINE SULFATE IR 15 MG TABLET PO SCH (20:03)
[2024-01-15 21:32] LABS: TROPONIN I 0.006 ng/mL (0-0.300)
[2024-01-16] VITALS (9 sets, daily range): BP systolic 98–123; BP diastolic 63–69; PULSE 74–88; RESP 16–21; TEMP 98.1–98.9; O2SAT 97–99
[2024-01-16] MEDS: FUROSEMIDE INJ 10 MG/ML 4 ML VIAL IV STA (00:30)
[2024-01-16 06:19] LABS: BASOPHILS % 0.2 % (0.0-1.0); HEMATOCRIT 37.5 % (34.2-44.1); HEMOGLOBIN 11.5 g/dL (12.0-16.0); LYMPHOCYTES # (AUTO) 0.8 (1.0-3.2); LYMPHOCYTES % 20.2 % (18.0-39.1); MEAN CORPUSCULAR HEMOGLOBIN 28.3 pg (28-32); MEAN CORPUSCULAR HGB CONC 30.7 g/dL (31-35); MEAN CORPUSCULAR VOLUME 92.4 fL (81-99); MONOCYTES # (AUTO) 0.4 (0.2-0.8); MONOCYTES % 10.6 % (4.4-11.3); NEUTROPHILS # (AUTO) 2.8 (2.1-6.9); NEUTROPHILS % 67.8 % (38.7-80.0); PLATELET COUNT 58 x10e3/uL (140-360); RED BLOOD COUNT 4.06 x10e6/uL (3.6-5.1); RED CELL DISTRIBUTION WIDTH 15.7 % (11.7-14.4); WHITE BLOOD COUNT 4.15 x10e3/uL (4.8-10.8)
[2024-01-16 06:40] LABS: ALBUMIN 3.2 g/dL (3.5-5.0); ALBUMIN/GLOBULIN RATIO 1.2 (0.8-2.0); ANION GAP 11.5 mmol/L (8-16); BILIRUBIN,TOTAL 1.8 mg/dL (0.2-1.2); CALCIUM 9.1 mg/dL (8.4-10.2); CREATININE, SERUM 0.74 mg/dL (0.57-1.11); POTASSIUM 3.5 mmol/L (3.5-5.1); TOTAL PROTEIN 5.9 g/dL (6.5-8.1)
[2024-01-16 07:06] LABS: TROPONIN I 0.012 ng/mL (0-0.300)
[2024-01-16] MEDS: PANTOPRAZOLE SODIUM 20 MG TABLET.DR PO SCH (08:54)
[2024-01-16] MEDS: METOPROLOL SUCCINATE 25 MG TAB XL PO SCH (08:54)
[2024-01-16] MEDS: FUROSEMIDE INJ 10 MG/ML 4 ML VIAL IV SCH (08:54)
[2024-01-16] MEDS: VILANTER INH SCH (13:00)
[2024-01-16] MEDS: UMECLIDIN INH SCH (13:00)
[2024-01-16] MEDS: FLUTICASONE INH SCH (13:00)
[2024-01-17] VITALS (7 sets, daily range): BP systolic 94–101; BP diastolic 54–59; PULSE 69–92; RESP 18–23; TEMP 97.7–98.4; O2SAT 95–100
[2024-01-17] MEDS: ACETAMINOPHEN 325 MG TAB PO PRN (03:26)
[2024-01-17 07:45] LABS: ALBUMIN/GLOBULIN RATIO 1.2 (0.8-2.0); ANION GAP 10.4 mmol/L (8-16); BILIRUBIN,TOTAL 1.7 mg/dL (0.2-1.2); CALCIUM 8.9 mg/dL (8.4-10.2); CREATININE, SERUM 0.71 mg/dL (0.57-1.11); TOTAL PROTEIN 5.6 g/dL (6.5-8.1)
[2024-01-17 07:51] LABS: POTASSIUM 3.4 mmol/L (3.5-5.1)
[2024-01-17] MEDS ORDERED: AZITHROMYCIN250 MG PO (15:56)
[2024-01-17] MEDS ORDERED: LASIX40 MG PO (15:56)
[2024-01-17] MEDS: POTASSIUM CHLORIDE 10MEQ EA PO ONE (16:48)
[2024-01-18] MEDS ORDERED: FUROSEMIDE 40 MG TAB PO SCH (09:00)
[2024-01-18] MEDS ORDERED: AZITHROMYCIN 250 MG TAB PO SCH (09:00)
== END 2024-01-17 19:01 | disposition home or self-care (01) | DRG 194 ==
LOC: ER 10:18 → ERHOLD 12:44 → MED/SURG3 14:01
PROVIDERS: ADMIT Internal Medicine; ATTEND Internal Medicine
DX: J18.9 Pneumonia, unspecified organism (principal); J44.0 Chronic obstructive pulmonary disease with (acute) lower respiratory infection; D69.6 Thrombocytopenia, unspecified; D63.8 Anemia in other chronic diseases classified elsewhere; K74.69 Other cirrhosis of liver; I10 Essential (primary) hypertension; I48.0 Paroxysmal atrial fibrillation; R53.81 Other malaise; M54.9 Dorsalgia, unspecified; Z11.52 Encounter for screening for COVID-19; Z79.01 Long term (current) use of anticoagulants; Z90.49 Acquired absence of other specified parts of digestive tract; Z90.710 Acquired absence of both cervix and uterus; Z88.8 Allergy status to other drugs, medicaments and biological substances
CPT/HCPCS: 36415; 71045; 74177; 76705; 80053; 81001; 82140; 82550; 83735; 83880; 84100; 84484; 85025; 85610; 85730; 87040; 87902; 93005; 94799; 99284; J0696; J1940; J7050; Q9967

== ENCOUNTER 2024-04-17 09:13 | Inpatient (IN) | payer MEDICARE ==
[~2024-04-17] VITALS: Ht 170.2 cm; Wt 83.5 kg
[~2024-04-17 09:13] MED LIST changes: +AZITHROMYCIN250 MG PO; +LASIX40 MG PO
[2024-04-17 09:20] VITALS: TEMP 99.8
[2024-04-17 09:51] LABS: BASOPHILS % 0.2 % (0.0-1.0); EOSINOPHILS % 0.2 % (0.0-6.0); HEMATOCRIT 41.2 % (34.2-44.1); HEMOGLOBIN 13.8 g/dL (12.0-16.0); LYMPHOCYTES # (AUTO) 0.8 (1.0-3.2); LYMPHOCYTES % 15.3 % (18.0-39.1); MEAN CORPUSCULAR HEMOGLOBIN 28.8 pg (28-32); MEAN CORPUSCULAR HGB CONC 33.5 g/dL (31-35); MEAN CORPUSCULAR VOLUME 85.8 fL (81-99); MONOCYTES # (AUTO) 0.7 (0.2-0.8); MONOCYTES % 13.6 % (4.4-11.3); NEUTROPHILS # (AUTO) 3.7 (2.1-6.9); NEUTROPHILS % 70.3 % (38.7-80.0); PLATELET COUNT 82 x10e3/uL (140-360); RED CELL DISTRIBUTION WIDTH 19.6 % (11.7-14.4); WHITE BLOOD COUNT 5.29 x10e3/uL (4.8-10.8)
[2024-04-17 10:06] LABS: INR 1.54; PARTIAL THROMBOPLASTIN TIME 26.5 seconds (23.8-35.5); PROTHROMBIN TIME 19.3 seconds (11.9-14.5)
[2024-04-17 10:13] LABS: ALBUMIN 3.3 g/dL (3.5-5.0); ALBUMIN/GLOBULIN RATIO 1.3 (0.8-2.0); ANION GAP 14.9 mmol/L (8-16); BILIRUBIN,TOTAL 4.2 mg/dL (0.2-1.2); CALCIUM 8.8 mg/dL (8.4-10.2); CREATININE, SERUM 0.8 mg/dL (0.57-1.11); TOTAL PROTEIN 5.8 g/dL (6.5-8.1)
[2024-04-17 10:21] LABS: POTASSIUM 2.9 mmol/L (3.5-5.1)
[2024-04-17 10:22] LABS: CORONAVIRUS COVID-19 AG NEGATIVE (NEGATIVE); INFLUENZA A AG NEGATIVE (NEGATIVE); INFLUENZA B AG NEGATIVE (NEGATIVE)
[2024-04-17 10:27] LABS: BILIRUBIN,URINE SMALL (NEGATIVE); CLARITY,URINE CLEAR (CLEAR); COLOR,URINE YELLOW (YELLOW); GLUCOSE, URINE NEGATIVE (NEGATIVE); KETONES,URINE NEGATIVE (NEGATIVE); LEUKOCYTE ESTERASE ,URINE NEGATIVE (NEGATIVE); NITRITE,URINE POSITIVE (NEGATIVE); PH,URINE 6 (5 - 7); PROTEIN,URINE DIPSTICK 1+ (NEGATIVE); URINE UROBILINOGEN 1 mg/dL (0.2 - 1)
[2024-04-17] MEDS ORDERED: IOPAMIDOL 370 MG/ML 100 ML INFUS..BTL INJ ONE (10:36)
[2024-04-17 10:56] LABS: BACTERIA,URINE MANY /HPF; EPITHELIAL CELLS,URINE MODERATE /LPF; WBC,URINE (MAN) 21-50 /HPF (0-5)
[2024-04-17] MEDS: LACTATED RINGER'S 1,000 ML INJ ONE (11:58)
[2024-04-17] MEDS: POTASSIUM CHLORIDE 20 MEQ TAB CR PO ONE ×2 (11:58→18:15)
[2024-04-17] MEDS: CEFTRIAXONE 2 GM in SODIUM CHLORIDE 0.9% 100 ML IV ONE (11:59)
[2024-04-17] MEDS ORDERED: CEFDINIR300 MG PO (14:35)
[2024-04-17] MEDS ORDERED: HYDRALAZINE HCL 20 MG/ML VIAL IV PRN (15:00)
[2024-04-17] MEDS ORDERED: ONDANSETRON HCL INJ 2MG/ML 2ML 2 MG/ML VIAL IV PRN (15:00)
[2024-04-17] MEDS ORDERED: LIDOCAINE 4% PATCH TP PRN (15:00)
[2024-04-17] MEDS ORDERED: SIMETHICONE 80 MG CHEW PO PRN (15:00)
[2024-04-17] MEDS: SODIUM CHLORIDE 0.9% 1000ML 1,000 ML IV SCH (15:00)
[2024-04-17] MEDS ORDERED: ALBUTEROL/IPRATROPIUM 3 ML NEB NEB PRN (15:00)
[2024-04-17] MEDS ORDERED: BENZONATATE 100 MG CAP PO PRN (15:00)
[2024-04-17] MEDS ORDERED: DOCUSATE SODIUM 100 MG CAP PO PRN (15:00)
[2024-04-17] MEDS ORDERED: DIPHENHYDRAMINE HCL 25 MG CAP PO PRN (15:00)
[2024-04-17] MEDS ORDERED: DEXTROSE 50% SYRINGE 50 ML IV PRN (15:00)
[2024-04-17 15:34] VITALS: PULSE 87; RESP 18; O2SAT 96
[2024-04-17 15:47] VITALS: PULSE 78; RESP 16
[2024-04-17] MEDS: ENOXAPARIN SOD INJ 40 MG/0.4 ML SYR SC SCH (18:15)
[2024-04-17] MEDS ORDERED: ALBUTEROL 90 MCG/ACT INHALER INH PRN (19:00)
[2024-04-17] MEDS ORDERED: LACTULOSE SYRUP 20 GM/30 ML UDC PO PRN (19:15)
[2024-04-17 20:00] VITALS: BP 116/68; PULSE 78; RESP 21; TEMP 99.4; O2SAT 100
[2024-04-17 21:00] VITALS: BP 116/68; PULSE 78; RESP 21; TEMP 99.4; O2SAT 100
[2024-04-17] MEDS: MORPHINE SULFATE IR 15 MG TABLET PO PRN (21:30)
[2024-04-17] MEDS: MELATONIN 5 MG TABLET PO PRN (21:30)
[2024-04-17] MEDS: OLANZAPINE 5 MG TAB PO SCH (21:31)
[2024-04-17] MEDS: METHOCARBAMOL 500 MG TAB PO SCH (21:31)
[2024-04-18] VITALS (8 sets, daily range): BP systolic 96–107; BP diastolic 51–69; PULSE 65–99; RESP 17–20; TEMP 97.5–98.9; O2SAT 95–99
[2024-04-18 08:06] LABS: BASOPHILS % 0.5 % (0.0-1.0); EOSINOPHILS % 0.5 % (0.0-6.0); HEMATOCRIT 38.3 % (34.2-44.1); HEMOGLOBIN 12.5 g/dL (12.0-16.0); LYMPHOCYTES % 25.9 % (18.0-39.1); MEAN CORPUSCULAR HEMOGLOBIN 28.9 pg (28-32); MEAN CORPUSCULAR HGB CONC 32.6 g/dL (31-35); MEAN CORPUSCULAR VOLUME 88.7 fL (81-99); MONOCYTES # (AUTO) 0.5 (0.2-0.8); MONOCYTES % 13.4 % (4.4-11.3); NEUTROPHILS # (AUTO) 2.2 (2.1-6.9); NEUTROPHILS % 59.7 % (38.7-80.0); PLATELET COUNT 59 x10e3/uL (140-360); RED BLOOD COUNT 4.32 x10e6/uL (3.6-5.1); WHITE BLOOD COUNT 3.67 x10e3/uL (4.8-10.8)
[2024-04-18] MEDS: PANTOPRAZOLE SOD 40 MG TABEC PO SCH (08:34)
[2024-04-18] MEDS: RIFAXIMIN 550 MG TABLET PO SCH (08:34)
[2024-04-18 08:35] LABS: CALCIUM 8.3 mg/dL (8.4-10.2); CREATININE, SERUM 0.68 mg/dL (0.57-1.11); MAGNESIUM 1.8 MG/DL (1.3-2.1)
[2024-04-18] MEDS: METOPROLOL SUCCINATE 25 MG TAB XL PO SCH (08:35)
[2024-04-18] MEDS: APIXABAN 2.5 MG TABLET PO SCH (08:35)
[2024-04-18] MEDS ORDERED: PANTOPRAZOLE SOD 40 MG TABEC PO SCH (09:00)
[2024-04-18 09:01] LABS: THYROID STIMULATING HORMONE 2.222 uIU/mL (0.350-4.940)
[2024-04-18] MEDS: POTASSIUM CHLORIDE 20 MEQ TAB CR PO STA (14:32)
[2024-04-18] MEDS: LACTULOSE SYRUP 20 GM/30 ML UDC PO SCH (18:12)
[2024-04-19] VITALS (7 sets, daily range): BP systolic 96–121; BP diastolic 62–92; PULSE 75–92; RESP 16–20; TEMP 97.4–98.8; O2SAT 95–98
[2024-04-19 06:29] LABS: BASOPHILS % 0.5 % (0.0-1.0); EOSINOPHILS # (AUTO) 0.1 (0.0-0.4); HEMATOCRIT 41.1 % (34.2-44.1); HEMOGLOBIN 13.2 g/dL (12.0-16.0); LYMPHOCYTES # (AUTO) 1.1 (1.0-3.2); LYMPHOCYTES % 25.6 % (18.0-39.1); MEAN CORPUSCULAR HEMOGLOBIN 29.5 pg (28-32); MEAN CORPUSCULAR HGB CONC 32.1 g/dL (31-35); MEAN CORPUSCULAR VOLUME 91.7 fL (81-99); MONOCYTES # (AUTO) 0.6 (0.2-0.8); MONOCYTES % 12.7 % (4.4-11.3); NEUTROPHILS # (AUTO) 2.6 (2.1-6.9); PLATELET COUNT 74 x10e3/uL (140-360); RED BLOOD COUNT 4.48 x10e6/uL (3.6-5.1); RED CELL DISTRIBUTION WIDTH 19.2 % (11.7-14.4); WHITE BLOOD COUNT 4.42 x10e3/uL (4.8-10.8)
[2024-04-19 06:57] LABS: ALBUMIN 3.1 g/dL (3.5-5.0); ALBUMIN/GLOBULIN RATIO 1.3 (0.8-2.0); BILIRUBIN,TOTAL 2.8 mg/dL (0.2-1.2); CALCIUM 8.8 mg/dL (8.4-10.2); CREATININE, SERUM 0.68 mg/dL (0.57-1.11); POTASSIUM 3.7 mmol/L (3.5-5.1); TOTAL PROTEIN 5.5 g/dL (6.5-8.1)
[2024-04-19 07:20] LABS: ANION GAP 13.7 mmol/L (8-16)
[2024-04-19] MEDS: Fluticasone/Umeclidin/Vilanter (Trelegy Ellipta 100-62.5-25) INH SCH (09:00)
[2024-04-19] MEDS: ACETAMINOPHEN 325 MG TAB PO PRN (11:28)
[2024-04-20] VITALS (8 sets, daily range): BP systolic 94–114; BP diastolic 55–62; PULSE 78–90; RESP 17–20; TEMP 97.9–98.9; O2SAT 96–98
[2024-04-20 06:32] LABS: BASOPHILS % 0.4 % (0.0-1.0); EOSINOPHILS # (AUTO) 0.1 (0.0-0.4); EOSINOPHILS % 2.7 % (0.0-6.0); HEMATOCRIT 38.1 % (34.2-44.1); HEMOGLOBIN 12.3 g/dL (12.0-16.0); LYMPHOCYTES % 20.7 % (18.0-39.1); MEAN CORPUSCULAR HEMOGLOBIN 28.8 pg (28-32); MEAN CORPUSCULAR HGB CONC 32.3 g/dL (31-35); MEAN CORPUSCULAR VOLUME 89.2 fL (81-99); MONOCYTES # (AUTO) 0.6 (0.2-0.8); MONOCYTES % 12.7 % (4.4-11.3); NEUTROPHILS % 63.3 % (38.7-80.0); PLATELET COUNT 66 x10e3/uL (140-360); RED BLOOD COUNT 4.27 x10e6/uL (3.6-5.1); RED CELL DISTRIBUTION WIDTH 18.8 % (11.7-14.4); WHITE BLOOD COUNT 4.79 x10e3/uL (4.8-10.8)
[2024-04-20 07:09] LABS: ANION GAP 12.2 mmol/L (8-16); CALCIUM 8.5 mg/dL (8.4-10.2); CREATININE, SERUM 0.58 mg/dL (0.57-1.11)
[2024-04-20 07:12] LABS: POTASSIUM 3.2 mmol/L (3.5-5.1)
[2024-04-20] MEDS: POTASSIUM CHLORIDE 20 MEQ TAB CR PO PRN (09:23)
[2024-04-20] MEDS ORDERED: MS CONTIN15 MG PO (10:22)
[2024-04-21] VITALS (10 sets, daily range): BP systolic 95–136; BP diastolic 58–84; PULSE 80–89; RESP 17–19; TEMP 97.7–98.7; O2SAT 95–99
[2024-04-21 06:55] LABS: HEMATOCRIT 36.2 % (34.2-44.1); MEAN CORPUSCULAR HEMOGLOBIN 29.3 pg (28-32); MEAN CORPUSCULAR HGB CONC 33.1 g/dL (31-35); MEAN CORPUSCULAR VOLUME 88.3 fL (81-99); PLATELET COUNT 63 x10e3/uL (140-360); RED CELL DISTRIBUTION WIDTH 18.6 % (11.7-14.4); WHITE BLOOD COUNT 4.32 x10e3/uL (4.8-10.8)
[2024-04-21 07:23] LABS: ALBUMIN 2.7 g/dL (3.5-5.0); ALBUMIN/GLOBULIN RATIO 1.1 (0.8-2.0); ANION GAP 9.2 mmol/L (8-16); BILIRUBIN,TOTAL 2.3 mg/dL (0.2-1.2); CALCIUM 8.2 mg/dL (8.4-10.2); CREATININE, SERUM 0.58 mg/dL (0.57-1.11); TOTAL PROTEIN 5.1 g/dL (6.5-8.1)
[2024-04-21 07:24] LABS: POTASSIUM 3.2 mmol/L (3.5-5.1)
[2024-04-21 08:08] LABS: FOLATE 8.2 ng/mL (7.0-15.4)
[2024-04-21 13:24] LABS: EOSINOPHILS % (MANUAL) 1 % (0-7); LYMPHOCYTES % (MANUAL) 13 % (19-48); MONOCYTES % (MANUAL) 10 % (3.4-9.0); NEUTROPHILS % (MANUAL) 76 % (40-74); PLATELET ESTIMATE MODERATELY DECREASED; PLATELET MORPHOLOGY COMMENT NORMAL; RBC MORPHOLOGY COMMENT NORMAL
[2024-04-22] VITALS (9 sets, daily range): BP systolic 92–120; BP diastolic 50–84; PULSE 71–88; RESP 18–21; TEMP 97.7–98.4; O2SAT 94–100
[2024-04-22 16:22] LABS: ANION GAP 10.9 mmol/L (8-16); CALCIUM 8.2 mg/dL (8.4-10.2); CREATININE, SERUM 0.68 mg/dL (0.57-1.11); MAGNESIUM 1.7 MG/DL (1.3-2.1); POTASSIUM 3.9 mmol/L (3.5-5.1)
[2024-04-22] MEDS: MIDODRINE HCL 5 MG TABLET PO ONE (16:54)
[2024-04-22] MEDS ORDERED: MIDODRINE HCL5 MG PO (17:20)
[2024-04-22] MEDS: FUROSEMIDE INJ 10 MG/ML 4 ML VIAL IV ONE (21:00)
[2024-04-23] VITALS: BP 112/67; PULSE 73; RESP 19; TEMP 98.1; O2SAT 96
[2024-04-23 04:00] VITALS: BP 105/62; PULSE 82; RESP 20; TEMP 97.3; O2SAT 95
[2024-04-23 07:27] LABS: BASOPHILS % 0.3 % (0.0-1.0); EOSINOPHILS # (AUTO) 0.1 (0.0-0.4); EOSINOPHILS % 3.1 % (0.0-6.0); HEMATOCRIT 33.1 % (34.2-44.1); LYMPHOCYTES # (AUTO) 0.8 (1.0-3.2); LYMPHOCYTES % 22.9 % (18.0-39.1); MEAN CORPUSCULAR HEMOGLOBIN 29.2 pg (28-32); MEAN CORPUSCULAR HGB CONC 33.2 g/dL (31-35); MEAN CORPUSCULAR VOLUME 87.8 fL (81-99); MONOCYTES # (AUTO) 0.3 (0.2-0.8); MONOCYTES % 9.4 % (4.4-11.3); NEUTROPHILS # (AUTO) 2.2 (2.1-6.9); PLATELET COUNT 72 x10e3/uL (140-360); RED BLOOD COUNT 3.77 x10e6/uL (3.6-5.1); RED CELL DISTRIBUTION WIDTH 18.6 % (11.7-14.4)
[2024-04-23 07:55] LABS: ANION GAP 11.3 mmol/L (8-16); CALCIUM 7.9 mg/dL (8.4-10.2); CREATININE, SERUM 0.56 mg/dL (0.57-1.11)
[2024-04-23 08:05] LABS: POTASSIUM 3.3 mmol/L (3.5-5.1)
[2024-04-23 08:36] VITALS: BP 112/47; PULSE 81; RESP 20; TEMP 97.6; O2SAT 95
[2024-04-23] MEDS: FUROSEMIDE INJ 10 MG/ML 4 ML VIAL IV SCH (09:12)
[2024-04-23] MEDS: MIDODRINE HCL 5 MG TABLET PO SCH (09:13)
[2024-04-23 11:31] VITALS: PULSE 80; RESP 18; O2SAT 96
[2024-04-23 14:37] VITALS: BP 105/59; PULSE 90; RESP 20; TEMP 98.1; O2SAT 96
[2024-04-23 16:36] VITALS: BP 121/62; PULSE 86; RESP 20; TEMP 97.9; O2SAT 95
== END 2024-04-23 17:53 | disposition home or self-care (01) | DRG 872 ==
LOC: ER 09:25 → ERHOLD 14:51 → MED/SURG3 17:29 → OBSVTOIN 04-18 14:41
PROVIDERS: ADMIT Internal Medicine; ATTEND Internal Medicine
DX: A41.59 Other Gram-negative sepsis (principal); N39.0 Urinary tract infection, site not specified; K76.6 Portal hypertension; N17.9 Acute kidney failure, unspecified; E87.20 Acidosis, unspecified; I85.10 Secondary esophageal varices without bleeding; I47.10 Supraventricular tachycardia, unspecified; B96.1 Klebsiella pneumoniae [K. pneumoniae] as the cause of diseases classified elsewhere; B19.20 Unspecified viral hepatitis C without hepatic coma; K74.60 Unspecified cirrhosis of liver; D69.59 Other secondary thrombocytopenia; R16.1 Splenomegaly, not elsewhere classified; I48.91 Unspecified atrial fibrillation; Z79.01 Long term (current) use of anticoagulants; D72.819 Decreased white blood cell count, unspecified; E86.0 Dehydration; R19.7 Diarrhea, unspecified; E87.8 Other disorders of electrolyte and fluid balance, not elsewhere classified; R62.7 Adult failure to thrive; Z68.28 Body mass index [BMI] 28.0-28.9, adult; Z71.3 Dietary counseling and surveillance; I95.9 Hypotension, unspecified; K57.30 Diverticulosis of large intestine without perforation or abscess without bleeding; G89.4 Chronic pain syndrome; M54.9 Dorsalgia, unspecified; Z11.52 Encounter for screening for COVID-19; Z79.899 Other long term (current) drug therapy
CPT/HCPCS: 36415; 51700; 71045; 71046; 74177; 80048; 80053; 81001; 82140; 82607; 82746; 82948; 83605; 83735; 84443; 85007; 85025; 85027; 85610; 85730; 87040; 87086; 87186; 93005; 94799; 99285; G0378; J0696; J1650; J1940; J7030; J7050; Q9967

== ENCOUNTER → 2024-06-25 | Outpatient (REF) | payer MEDICARE ==
[~2024-06-25] MED LIST changes: +CEFDINIR300 MG PO; +MIDODRINE HCL5 MG PO; +MS CONTIN15 MG PO
== END ==
LOC: US 07:25
PROVIDERS: ATTEND Internal Medicine Hematology & Oncology
DX: K74.69 Other cirrhosis of liver (principal)
CPT/HCPCS: 76700